=== PATIENT | female | born 1940 | race Hispanic/Latino ===

== ENCOUNTER 2017-10-31 21:09 | Inpatient (IN) | payer MEDICAID, OTHER ==
--- NOTE | 2017-10-31 21:23 | ED PDOC ---
Arrival/HPI - General Chief Complaint: Altered Mental Status Time Seen by Provider: 10/31/17 21:15 Historian: Family - History of Present Illness Narrative History of Present Illness (Text): 10/31/17 21:23 Tiffanie Sargent is a 77 year old female who presents to the Emergency department brought in by EMS accompanied by daughter for altered mental status tonight. As per daughter, patient began vomiting 1 hour prior to arrival with associated shaking and altered mental status. Daughter states patient was able to speak/ recognize her but was not making any sense. Daughter also notes patient hit her head on a cabinet 3 days prior and was complaining of abdominal pain since yesterday. Limited HPI and ROS secondary to patient's altered mental status. Time/Duration: Other (tonight) Symptom Course: Unchanged Activities at Onset: Light Context: Home Past Medical History - Provider Review Nursing Documentation Reviewed: Yes - Psychiatric Hx Substance Use: No Family/Social History - Physician Review Nursing Documentation Reviewed: Yes Family/Social History: Unknown Family HX Smoking Status: Never Smoked Hx Alcohol Use: No Hx Substance Use: No Allergies/Home Meds Allergies/Adverse Reactions: Allergies No Known Allergies Allergy (Verified 10/31/17 21:14) Home Medications: Home Meds Medication Instructions Recorded Confirmed No Known Home Med 10/31/17 10/31/17 Review of Systems - Review of Systems Systems not reviewed;Unavailable: Altered Mental Status Gastrointestinal: Abdominal Pain, Vomiting. absent: Diarrhea Neurological: Other (+altered mental status) Physical Exam Vital Signs Temp Pulse Resp BP Pulse Ox 11/01/17 03:29 99.3 F 81 18 90/41 L 96 11/01/17 02:09 107 H 18 85/51 L 96 11/01/17 01:37 112 H 18 99/57 L 96 11/01/17 00:26 99.3 F 11/01/17 00:19 106 H 17 100/51 L 96 10/31/17 23:58 107 H 18 104/49 L 95 10/31/17 22:48 108 H 18 113/62 92 L 10/31/17 22:25 132 H 120/54 L 10/31/17 22:00 126 H 10/31/17 21:58 124 H 18 120/54 L 95 10/31/17 21:49 104 F H 10/31/17 21:43 131 H 19 127/52 L 93 L 10/31/17 21:20 104.0 F H 144 H 18 126/65 90 L Temperature: Febrile Blood Pressure: Normal Pulse: Tachycardic Respiratory Rate: Normal Appearance: Positive for: Non-Toxic Pain Distress: None Mental Status: Positive for: other (Awake, alert, and oriented x 2 (person and place)) - Systems Exam Head: Present: Normocephalic, Other (Chronic skin lesions to left infraorbital facial area) Pupils: Present: PERRL Extroacular Muscles: Present: EOMI Conjunctiva: Present: Normal Ears: Present: Normal, NORMAL TM, Normal Canal. No: Erythema, TM Bulging, Fluid Mouth: Present: Moist Mucous Membranes Pharnyx: Present: Normal. No: ERYTHEMA, EXUDATE, TONSILS ENLARGED, Peritonsilar Swelling, Uvular Deviation, Muffled/Hoarse Voice, Strider, Soft Palate/Uvular Edema Nose (External): Present: Atraumatic Nose (Internal): Present: Normal Inspection Neck: Present: Normal Range of Motion. No: Meningeal Signs, MIDLINE TENDERNESS , Paraspinal Tenderness Respiratory/Chest: Present: Clear to Auscultation, Good Air Exchange. No: Respiratory Distress, Accessory Muscle Use Cardiovascular: Present: Normal S1, S2, Irregular Rhythm (Irregular, regular), Tachycardic. No: Murmurs Abdomen: Present: Tenderness (upper abdomen), Normal Bowel Sounds. No: Distention, Peritoneal Signs Back: Present: Normal Inspection. No: CVA Tenderness, Midline Tenderness, Paraspinal Tenderness Upper Extremity: Present: Normal Inspection, Normal ROM, NORMAL PULSES, Neurovascularly Intact, Capillary Refill < 2s. No: Cyanosis, Edema, Tenderness , Swelling, Erythema, Temperature Abnormalties, Deformity Lower Extremity: Present: Normal Inspection, NORMAL PULSES, Normal ROM, Neurovascularly Intact, Capillary Refill < 2 s. No: Edema, CALF TENDERNESS, Cyanosis, Tenderness, Swelling, Erythema, Deformity, Temperature Abnormalties Neurological: Present: GCS=15, CN II-XII Intact, Speech Normal, Motor Func Grossly Intact, Normal Sensory Function, Normal Cerebellar Funct Skin: Present: Warm, Dry, Normal Color. No: Rashes Psychiatric: Present: Alert (Awake, alert). No: Oriented x 3 (Oriented x2 ( person and place)) Medical Decision Making ED Course and Treatment: 10/31/17 21:23 Impression: 77 year old female brought in for altered mental status with vomiting 1 hour [employer]. Pt also hit her head 3 days prior. Plan: -- CT Head w/o contrast -- CT Abdomen and Pelvis -- EKG -- Chest X-ray -- Labs, cardiac enzymes, blood cultures -- Urinalysis, urine cultures -- Lactated Ringer's -- Tylenol -- Reassess and disposition Progress Notes: Reviewed EKG, a flutter at 141 bpm. Variable AV block. Non-specific ST/T wave changes. Cardizem ordered 10/31/17 22:16 Chest X-ray reviewed, shows no acute processes. 10/31/17 23:05 Repeat EKG following medication reviewed, a flutter at [address]pm[address] Non-specific ST/ T wave changes. 10/31/17 23:04 CT Head shows: Brain: Unremarkable. No hemorrhage. No significant white matter disease. No edema. Ventricles: Unremarkable. No ventriculomegaly. Bones/joints: Unremarkable. No acute fracture. Soft tissues: Unremarkable. Sinuses: Air-fluid level in the right maxillary sinus. Near complete opacification of the left maxillary sinus. Acute sinusitis cannot be excluded. Mastoid air cells: Small right mastoid effusion. Acute mastoiditis cannot be excluded IMPRESSION: No evidence of acute intracranial hemorrhage. No midline shift or hydrocephalus.If symptoms persist, correlation with MRI is advised. Air-fluid level in the right maxillary sinus. Near complete opacification of the left maxillary sinus. Acute sinusitis cannot be excluded. Small right mastoid effusion. Acute mastoiditis cannot be excluded. Addendum by radiologist: No sinus disease. Disregard above mentioned sinus disease. 10/31/17 23:50 CT Abdomen and Pelvis shows: Artifacts: Streak artifact degrades image quality. Motion artifact degrades image quality. Lower thorax: The heart is enlarged. There is a small hiatal hernia. There are atelectatic changes at the lung bases. ABDOMEN: Liver: There is fatty infiltration of the liver. Gallbladder and bile ducts: Gallbladder is mildly distended. There is minimal pericholecystic fluid/edema. Common duct is mildly dilated 12 mm in diameter. There is mild thickening of the wall of the common duct. Pancreas: Pancreas is atrophic. Spleen: unremarkable Adrenals: There is mild nodular thickening of the right adrenal.. There is a 1.6 mm left adrenal nodule. Kidneys and ureters: There is a left renal cyst. Kidneys and ureters are otherwise unremarkable. Stomach and bowel: Stomach is almost empty. There is a duodenal diverticulum. Rotation is normal. There is no small bowel obstruction. Ileocecal region is unremarkable. Appendix and terminal ileum are unremarkable. Streak and motion limit evaluation of the colon. There is diverticulosis. Appendix: See stomach and bowel PELVIS: Bladder: unremarkable Reproductive: Uterus is lobular in configuration with coarse calcifications. Adnexa are unremarkable. ABDOMEN and PELVIS: Intraperitoneal space: There is no free air or free fluid. Bones/joints: unremarkable bony structures are osteopenic. There are degenerative changes. Soft tissues: unremarkable Vasculature: There are vascular calcifications. Lymph nodes: There is no pathologic adenopathy. IMPRESSION: Minimal pericholecystic fluid/edema suggest cholecystitis; mildly dilated common bile duct; fatty liver, no acute solid visceral abnormality; fibroid uterus; diverticulosis without CT findings of diverticulitis. 11/01/17 00:[address] Paul, who is aware and agrees with plan. Accepts pt in to her service, pt will be admitted. Decided not to heparinize at this time, antibiotics given. Surgical and cardiac consults to follow. ICU consult requested, wet process assistant head miller paged. 11/01/17 00:[address] Donnelly, wet process assistant head miller, who is aware and agrees to evaluate pt for possible ICU admission. 11/01/17 00:[address] Donnelly, present in Emergency department to evaluate pt, states pt can go to Telemetry. 11/01/17 02:06 Notified by RN, pt with drop in blood pressure, fluids ordered. Discussed with wet process assistant head miller, will upgrade to ICU. Pt will be admitted to ICU for acute cholecystitis, paroxysmal atrial fibrillation/flutter, and fever under Dr. Paul 's service. - Critical Care Critical Care Minutes: 45 minutes - Lab Interpretations Lab Results: 10/31/17 21:22 10/31/17 21:22 Lab Results 11/01/17 00:29: Lipase 98 10/31/17 21:45: Urine Color Yellow, Urine Appearance Sl cloudy, Urine pH 7.5, Ur Specific [place] 1.020, Urine Protein 100 H, Urine Glucose (UA) Negative, Urine Ketones 40 H, Urine Blood Trace-intact H, Urine Nitrate Negative, Urine Bilirubin Large H, Urine Urobilinogen 1.0 H, Ur Leukocyte Esterase Negative, Urine RBC 0 - 2, Urine WBC Negative 10/31/17 21:22: Sodium 133, Chloride 96 L, Potassium 4.1, Carbon Dioxide 27, Anion Gap 15, BUN 12, Creatinine 0.8, Est GFR ( Amer) > 60, Est GFR (Non- Af Amer) > 60, Random Glucose 172 H, Calcium 9.4, Phosphorus 2.5, Magnesium 1.8 , Total Bilirubin 8.4 H, AST 266 H, ALT 346 H, Alkaline Phosphatase 409 H, Lactate Dehydrogenase 593, Total Creatine Kinase 59, Troponin I < 0.01, Total Protein 8.0, Albumin 4.0, Globulin 4.0, Albumin/Globulin Ratio 1.0 L 10/31/17 21:22: pO2 43, VBG pH 7.40, VBG pCO2 47.0, VBG HCO3 29.1 H, VBG Total CO2 30.5 H, VBG O2 Sat (Calc) 84.6 H, VBG Base Excess 3.5 H, VBG Potassium 4.1, Sodium 133.0, Chloride 95.0 L, Glucose 174 H, Lactate 1.8, FiO2 21.0, Venous Blood Potassium 4.1 10/31/17 21:22: PT 13.9 H, INR 1.21 H, APTT 26.3 10/31/17 21:22: WBC 3.7 L, RBC 4.74, Hgb 14.0, Hct 41.6, MCV 87.8, MCH 29.5, MCHC 33.7, RDW 14.1, Plt Count 189, MPV 10.0, Gran % 90.0 H, Lymph % (Auto) 9.2 L, [place] % (Auto) 0.8 L, Eos % (Auto) 0.0 L, Baso % (Auto) 0.0, Gran # 3.33, Lymph # 0.3 L, [place] # 0.0 L, Eos # 0.0, Baso # 0.00 I have reviewed the lab results: Yes - RAD Interpretation Radiology Orders: 10/31/17 21:23 CHEST PORTABLE [RAD] Stat 10/31/17 21:49 HEAD W/O CONTRAST [CT] Stat 10/31/17 22:03 ABD & PELVIS IV CONTRAST ONLY [CT] Stat 11/01/17 00:32 ABDOMEN COMPLETE [US] [employer] Architect: ED Physician, Radiologist - EKG Interpretation Interpreted by ED Physician: Yes Type: 12 lead EKG - Medication Orders Current Medication Orders: Acetaminophen (Tylenol 325mg Tab) 650 mg PO Q4 PRN PRN Reason: Fever >100.4 F diltiaZEM IVPB 100mg in NS (Cardizem 100mg In Ns) 100 mls @ 5 mls/hr IV .Q20H PRN; Protocol; 5 MG/HR PRN Reason: TITRATE PER MD ORDER Last Admin: 11/01/17 03:31 Dose: 5 mg/hr, 5 mls/hr eMAR Start Stop Document 11/01/17 03:31 PD (Rec: 11/01/17 03:31 PD [id number]) Intravenous Solution Start Date 11/01/17 Start Time 03:31 MAR Pulse Rate Document 11/01/17 03:31 PD (Rec: 11/01/17 03:31 PD [id number]) Pulse Rate Pulse Rate (60-90) 100 Titration Intervention Document 11/01/17 03:31 PD (Rec: 11/01/17 03:31 PD [id number]) Titration Intake Waste Amount 0 Container Volume 100 Titration Dosing Titration Dose 5 IV Rate 5 Intake/Decrease Started Sodium Chloride (Sodium Chloride 0.9%) 1,000 mls @ 125 mls/hr IV .Q8H CHARI Last Admin: 11/01/17 01:38 Dose: 125 mls/hr eMAR Start Stop Document 11/01/17 01:38 IT (Rec: 11/01/17 01:38 IT [id number]) Intravenous Solution Start Date 11/01/17 Start Time 01:38 End Date 11/01/17 Heparin Sodium/Sodium Chloride (Heparin 97095 Units/250ml 1/2 Normal Saline) 25 ,000 units in 250 mls @ 17.57 mls/hr IV .[id number] PRN; Protocol; 18 UNITS/KG/HR PRN Reason: ADJUST RATE PER PROTOCOL Last Admin: 11/01/17 02:43 Dose: 18 units/kg/hr, 17.57 mls/hr eMAR Start Stop Document 11/01/17 02:43 IT (Rec: 11/01/17 02:43 IT [id number]) Intravenous Solution Start Date 11/01/17 Start Time 02:43 Titration Intervention Document 11/01/17 02:43 IT (Rec: 11/01/17 02:43 IT [id number]) Titration Intake Waste Amount 0 Container Volume 250 Titration Dosing Titration Dose 18 IV Rate 17.57 Intake/Decrease Started Piperacillin Sod/Tazobactam Sod (Zosyn 3.375 In Ns 100ml) 100 mls @ 200 mls/hr IVPB Q6 CHARI PRN Reason: Protocol Stop: 11/01/17 12:29 Ondansetron HCl (Zofran Inj) 4 mg IVP Q6H PRN PRN Reason: Nausea/Vomiting Discontinued Medications Acetaminophen (Tylenol 650 Mg Supp) 650 mg RC STAT STA Stop: 10/31/17 21:32 Last Admin: 10/31/17 21:49 Dose: 650 mg MAR Pain/Vitals Document 10/31/17 21:49 IT (Rec: 10/31/17 21:49 IT [id number]) Pain Reassessment Is This A Pain ReAssessment? No Sleep Is patient sleeping during reassessment? No Presence of Pain Presence of Pain No Vitals Temperature (97.6 F-99.6 F) 104 F Temperature Source Rectal Diltiazem HCl (Cardizem) 20 mg IVP STAT STA Stop: 10/31/17 22:17 Last Admin: 10/31/17 22:25 Dose: 20 mg IVP Administration Document 10/31/17 22:25 YP (Rec: 10/31/17 22:27 [id number] Charges for Administration # of IVP Administrations 1 MAR Pulse and Blood Pressure Document 10/31/17 22:25 YP (Rec: 10/31/17 22:27 YP [facility] [id number]) Pulse Pulse Rate (60-90) 132 Blood Pressure Blood Pressure (100/60-150/90) 120/54 Heparin Sodium (Porcine) (Heparin) 4,000 units IV ONCE ONE PRN Reason: Protocol Stop: 11/01/17 02:16 Last Admin: 11/01/17 02:42 Dose: 4,000 units eMAR Start Stop Document 11/01/17 02:42 IT (Rec: 11/01/17 02:42 IT [id number]) Intravenous Solution Start Date 11/01/17 Start Time 02:42 Lactated Ringer's 2,930 ml/ IV (SUPPLIES) 2,930 mls @ 5,856.78 mls/hr IV ONCE ONE PRN Reason: 60 ML/KG/HR Stop: 10/31/17 21:21 Last Admin: 10/31/17 21:31 Dose: 5,856.78 mls/hr eMAR Start Stop Document 10/31/17 21:31 IT (Rec: 10/31/17 21:32 IT [id number]) Intravenous Solution Start Date 10/31/17 Start Time 21:31 Piperacillin Sod/Tazobactam Sod (Zosyn 3.375 In Ns 100ml) 100 mls @ 200 mls/hr IV STAT STA PRN Reason: Protocol Stop: 10/31/17 22:34 Last Admin: 11/01/17 00:36 Dose: 200 mls/hr eMAR Start Stop Document 11/01/17 00:36 IT (Rec: 11/01/17 00:36 IT [id number]) Intravenous Solution Start Date 11/01/17 Start Time 00:36 End Date 11/01/17 End time 01:05 Total Infusion Time 29 Vancomycin HCl (Vancomycin 1gm) 1 gm in 250 mls @ 133.333 mls/hr IVPB STAT STA PRN Reason: Protocol Stop: 11/01/17 00:02 Last Admin: 10/31/17 22:15 Dose: 133.333 mls/hr eMAR Start Stop Document 10/31/17 22:15 YP (Rec: 10/31/17 22:16 YP [id number]) Intravenous Solution Start Date 10/31/17 Start Time 22:15 End Date 11/01/17 End time 00:10 Total Infusion Time 115 Sodium Chloride (Sodium Chloride 0.9%) 1,000 mls @ 999 mls/hr IV .Q1H1M STA Stop: 11/01/17 00:57 Last Admin: 10/31/17 23:59 Dose: 999 mls/hr eMAR Start Stop Document 10/31/17 23:59 IT (Rec: 10/31/17 23:59 IT [id number]) Intravenous Solution Start Date 10/31/17 Start Time 23:59 End Date 11/01/17 End time 00:59 Total Infusion Time 60 Sodium Chloride (Sodium Chloride 0.9%) 1,000 mls @ 999 mls/hr IV .Q1H1M STA Stop: 11/01/17 03:22 Last Admin: 11/01/17 02:38 Dose: 999 mls/hr eMAR Start Stop Document 11/01/17 02:38 IT (Rec: 11/01/17 02:38 IT [id number]) Intravenous Solution Start Date 11/01/17 Start Time 02:38 End Date 11/01/17 End time 03:28 Total Infusion Time 50 - Scribe Statement The provider has reviewed the documentation as recorded by the Scribe Tram Hooks All medical record entries made by the Scribe were at my direction and personally dictated by me. I have reviewed the chart and agree that the record accurately reflects my personal performance of the history, physical exam, medical decision making, and the department course for this patient. I have also personally directed, reviewed, and agree with the discharge instructions and disposition. Disposition/Present on Arrival - Present on Arrival Any Indicators Present on Arrival: No History of DVT/PE: No History of Uncontrolled Diabetes: No Urinary Catheter: No History of Decub. Ulcer: No History Surgical Site Infection Following: None - Disposition Have Diagnosis and Disposition been Completed?: Yes Diagnosis: Altered mental status, Cholecystitis, Fever, Paroxysmal atrial flutter, Transient hypotension Disposition: HOSPITALIZED Disposition Time: :02 Patient Plan: Admission Patient Problems: Current Active Problems Problem Status Onset Altered mental status Acute Cholecystitis Acute Fever Acute Paroxysmal atrial flutter Acute Transient hypotension Acute Condition: STABLE
[2017-10-31 21:37] LABS: VENOUS BLOOD GAS BASE EXCESS 3.5 mmol/L (0.0-2.0); VENOUS BLOOD GAS PO2 43 mm/Hg (30-55)
[2017-10-31 21:49] LABS: GRAN # 3.33 (1.4-6.5); LYMPH # 0.3 (1.2-3.4); LYMPH % 9.2 % (22.0-35.0); MEAN CELL VOLUME 87.8 fl (80.0-105.0); MEAN CORPUSCULAR HEMOGLOBIN 29.5 pg (25.0-35.0); MEAN CORPUSCULAR HGB CONC 33.7 g/dl (31.0-37.0); MONO % 0.8 % (1.0-6.0); RBC 4.74 10^6/uL (3.5-6.1); RED CELL DISTRIBUTION WIDTH 14.1 % (11.5-14.5); WHITE BLOOD COUNT 3.7 10^3/ul (4.5-11.0)
[2017-10-31 21:55] LABS: INR 1.21 (0.93-1.08); PARTIAL THROMBOPLASTIN TIME 26.3 Seconds (25.1-36.5); PROTHROMBIN TIME 13.9 SECONDS (9.4-12.5)
[2017-10-31 21:56] LABS: PH,URINE 7.5 (4.7-8.0); URINE BILIRUBIN LARGE (NEGATIVE); URINE BLOOD TRACE-INTACT (NEGATIVE); URINE GLUCOSE (UA) NEGATIVE (NEGATIVE); URINE LEUKOCYTE ESTERASE NEGATIVE Leu/uL (NEGATIVE); URINE NITRATE NEGATIVE (NEGATIVE); URINE PROTEIN 100 mg/dL (<30 mg/dL)
[2017-10-31 21:57] LABS: URINE APPEARANCE SL CLOUDY (CLEAR); URINE COLOR YELLOW (YELLOW)
[2017-10-31 21:58] LABS: TROPONIN I < 0.01 ng/mL
[2017-10-31 22:00] LABS: URINE RBC 0 - 2 /hpf (0-2); URINE WBC NEGATIVE /hpf (0-6)
[2017-10-31 22:00] LABS: ALT/SGPT 346 U/L (7-56); AST/SGOT 266 U/L (14-36); BLOOD UREA NITROGEN 12 mg/dL (7-21); CALCIUM 9.4 mg/dL (8.4-10.5); GFR AFRICAN-AMERICAN > 60; GFR NON-AFRICAN AMERICAN > 60; MAGNESIUM 1.8 mg/dL (1.7-2.2)
[2017-10-31] MEDS ORDERED: Piperacillin/Tazobact 3.375 gm 100 ML IV STA (22:05)
[2017-10-31] MEDS ORDERED: Iohexol 350 MG/100 ML VIAL ONE (22:05)
[2017-10-31] MEDS ORDERED: Vancomycin 1gm in NS 250ml 1 GM/250 ML BAG IVPB STA (22:10)
--- NOTE | 2017-10-31 23:43 | CT ---
EXAM: CT Abdomen and Pelvis With Intravenous Contrast EXAM DATE/TIME: 10/31/2017 10:03 PM CLINICAL HISTORY: 77 years old, female; Pain; Abdominal pain; Acute TECHNIQUE: Axial computed tomography images of the abdomen and pelvis with intravenous contrast. All CT scans at this facility use one or more dose reduction techniques, viz.: automated exposure control; ma/kV adjustment per patient size (including targeted exams where dose is matched to indication; i.e. head); or iterative reconstruction technique. Coronal and sagittal reformatted images were created and reviewed. CONTRAST: 100 mL of OMNI administered intravenously. COMPARISON: There are no prior studies for comparison. FINDINGS: Artifacts: Streak artifact degrades image quality. Motion artifact degrades image quality. Lower thorax: The heart is enlarged. There is a small hiatal hernia. There are atelectatic changes at the lung bases. ABDOMEN: Liver: There is fatty infiltration of the liver. Gallbladder and bile ducts: Gallbladder is mildly distended. There is minimal pericholecystic fluid/edema. Common duct is mildly dilated 12 mm in diameter. There is mild thickening of the wall of the common duct. Pancreas: Pancreas is atrophic. Spleen: unremarkable Adrenals: There is mild nodular thickening of the right adrenal.. There is a 1.6 mm left adrenal nodule. Kidneys and ureters: There is a left renal cyst. Kidneys and ureters are otherwise unremarkable. Stomach and bowel: Stomach is almost empty. There is a duodenal diverticulum. Rotation is normal. There is no small bowel obstruction. Ileocecal region is unremarkable. Appendix and terminal ileum are unremarkable. Streak and motion limit evaluation of the colon. There is diverticulosis. Appendix: See stomach and bowel PELVIS: Bladder: unremarkable Reproductive: Uterus is lobular in configuration with coarse calcifications. Adnexa are unremarkable. ABDOMEN and PELVIS: Intraperitoneal space: There is no free air or free fluid. Bones/joints: unremarkable bony structures are osteopenic. There are degenerative changes. Soft tissues: unremarkable Vasculature: There are vascular calcifications. Lymph nodes: There is no pathologic adenopathy. IMPRESSION: Minimal pericholecystic fluid/edema suggest cholecystitis; mildly dilated common bile duct; fatty liver, no acute solid visceral abnormality; fibroid uterus; diverticulosis without CT findings of diverticulitis
[2017-10-31] MEDS ORDERED: Sodium Chloride 0.9% 1,000 ML IV STA (23:57)
--- NOTE | 2017-11-01 01:09 | CP.PCM.CON ---
Addendum entered and electronically signed by Nelson Saleh DO 11/01/17 02:55: Addendum to physical exam: Eyes: healing scabs along inferior aspect of left orbit Addendum to Plan After patient seen in ED, started to become increasingly hypotensive, now not responsive to fluids. On reassessment, will take patient to ICU. Plan as follows: Neuro: -awake and alert, AMS likely 2/2 sepsis vs dehydration, appears resolved now -maintain normothermia, PRN tylenol on order -Tmax in the ED 104 F, 99.3 F at last check -at risk for hospital/ICU-associated delirium, strict day/night cycle and frequent reorientations as needed Pulm: -satting well on room air, no indication for supplemental O2 at this time. -maintain SaO2 of at least 92% Cardio -EKG on arrival notable for AFlutter with variable AV block, improved on cardizem drip but stopped due to hypotension -was initially hemodynamically stable and responsive to IV fluids, not hypotensive to systolic 80's despite IV fluids -continue aggressive IV fluids, pressor support as needed, maintain MAP > 65 -trop x1 negative, 2nd increase to 0.09, trending 1 more q6h -heparin drip started -IVF NS 125 cc/hr, s/p LR bolus 1L in the ED -Cardio consulted, appreciate all recs -aflutter may be secondary to systemic stress from infection and dehydration, continue to monitor while on IV abx and IV fluids GI: -NPO -Zofran for PRN nausea, PPI for GI ppx -CT abd/pelvis concerning for Minimal pericholecystic fluid/edema suggest cholecystitis; mildly dilated common bile duct (12mm); fatty liver, no acute solid visceral abnormality; fibroid uterus; diverticulosis without CT findings of diverticulitis -Lipase obtained, wnl -US abd obtained, notable for Gallstones and sludge; prominent common duct -GI consulted, case discussed with GI Fellow signal constructor (appreciate all recs), MRCP ordered as per his instructions -Surgery consulted as per PMD, appreciate all recs Renal: -Cr 0.8, appears mildly dehydration -continue aggressive IVF -monitor and replete electrolytes as need ID: -broad-spectrum abx coverage for suspected ascending cholangitis -received Vanco and Zosyn IV x1 in ED, now on Merrem -blood and urine cx pending, procal pending Heme: -Hgb wnl at 14 -heparin drip in place due to worsening trops, covers for DVT ppx -Asa 81mg daily Dispo: ICU, pending GI eval and possible MRCP friday, pending Cardio and Surgery eval, receiving broad spectrum IV abx and IVF for possible cholangitis FEN: NS 125 cc/hr Access: Peripheral IV Consults: GI, Cardio, Surgery Ppx: protonix for GI, Heparin drip covers for DVT ppx Patient reviewed, discussed, and agreed upon with attending, Dr. Donnelly. Original Note: <Nelson Saleh - Last Filed: 11/01/17 00:55> History of Present Illness - History of Present Illness History of Present Illness: ICU Consult Note for Dr. Cony Saleh, PGY-2 IM Consulted for: AMS, elevated LFTs HPI: This is a 77 yo [place] F with no reported PMH who presents with daughter for acute altered mental status. Patient is primarily Tongan-speaking, history obtained through [facility]. As per pt and daughter, patient reported feeling malaise and nausea for the last 2-3 days, daughter reports 2 episodes of emesis and 1-2 days of diarrhea. Denies hematemesis and hematochezia. Daughter also reports pt has urge incontinence with little output, and reports mild yellowing of the sclera, but not the skin. Patient reported diffuse midline abdominal pain yesterday, but after taking some herbals (mint as per daughter), she felt better. AMS this evening was abrupt on onset, patient was conversant but speaking nonsensically, oriented to self and recognized daughter but otherwise disoriented. At time of exam, patient is now mentating back at her baseline as per daughter, she is conversant, oriented to self/location/year, and is able to follow all commands appropriately. Denies any chest pain or shortness of breath , but does admit to mildly productive cough x3-4 days. Daughter reports fevers at home today and tremulous episode after AMS occured, but denies loss of bowel/ bladder control, syncope, or falls. Of note, patient struck left orbital area against cabinet door while on ladder 3 days prior, with no loss of consciousness or falls at that time. Also of note, daughter reports that patient never follows with doctors, having last seen one approximately 30 years ago, but thinks that her mother might have been diagnosed with HTN when still in [place]. She is currently not on medication, preferring to manage any acute issues/symptoms with herbals she buys from produce stores. All other ROS in 12- system review negative. While in ED, found to be in atrial flutter, was started on cardizem drip, but was stopped due to hypotension. At time of exam, HR high 90's-100's, regular rhythm during ausculation. PMH: possible HTN dx while in [place], no other medical hx known due to lack of medical follow up PSH: denies Family Hx: denies Social Hx: denies tobacco/alcohol/illicits PMD: None Review of Systems - Review of Systems All systems: reviewed and no additional remarkable complaints except (as per HPI ) Past Patient History - Past Social History Smoking Status: Never Smoked - PSYCHIATRIC Hx Substance Use: No Meds Allergies/Adverse Reactions: Allergies Allergy/AdvReac Type Severity Reaction Status Date / Time No Known Allergies Allergy Verified 10/31/17 21:14 - Medications Medications: Current Medications diltiaZEM IVPB 100mg in NS (Cardizem 100mg In Ns) 100 mls @ 5 mls/hr IV .Q20H PRN; Protocol; 5 MG/HR PRN Reason: TITRATE PER MD ORDER Sodium Chloride (Sodium Chloride 0.9%) 1,000 mls @ 999 mls/hr IV .Q1H1M STA Stop: 11/01/17 00:57 Last Admin: 10/31/17 23:59 Dose: 999 mls/hr Physical Exam - Constitutional Appears: Well, Non-toxic, No Acute Distress - Head Exam Head Exam: ATRAUMATIC, NORMAL INSPECTION, NORMOCEPHALIC - Eye Exam Eye Exam: EOMI, Scleral icterus. absent: Conjunctival injection, Normal appearance Pupil Exam: absent: Irregular, Unequal - ENT Exam ENT Exam: Mucous Membranes Moist - Neck Exam Neck exam: Positive for: Full Rom - Respiratory Exam Respiratory Exam: Clear to Auscultation Bilateral, NORMAL BREATHING PATTERN. absent: Accessory Muscle Use, Chest Wall Tenderness, Decreased Breath Sounds, Rales, Rhonchi, Wheezes - Cardiovascular Exam Cardiovascular Exam: Tachycardia (high 90's-100's on bedside monitor), REGULAR RHYTHM, +S1, +S2. absent: Bradycardia, Irregular Rhythm, JVD, RRR, +S4 - GI/Abdominal Exam GI & Abdominal Exam: Normal Bowel Sounds, Soft, Tenderness (mild diffuse tenderness most prominent at epigastric region). absent: Diminished Bowel Sounds, Hyperactive Bowel Sounds, Hypoactive Bowel Sounds - Rectal Exam Rectal Exam: Deferred - Extremities Exam Extremities exam: Positive for: normal inspection. Negative for: pedal edema - Neurological Exam Additional comments: awake and alert, oriented to self/location/year, following all commands appropriately, moving extremities spontaneously, able to sit up in bed without acute issue or difficulty - Psychiatric Exam Psychiatric exam: Normal Affect, Normal Mood - Skin Skin Exam: Dry, Intact, Normal Color, Warm Results - Vital Signs Recent Vital Signs: Last Vital Signs Temp 99.3 F 11/01/17 00:26 Pulse 106 H 11/01/17 00:19 Resp 17 11/01/17 00:19 BP 100/51 L 11/01/17 00:19 Pulse Ox 96 11/01/17 00:19 - Labs Result Diagrams: 10/31/17 21:22 10/31/17 21:22 Labs: Laboratory Results - last 24 hr 10/31/17 10/31/17 10/31/17 21:22 21:22 21:22 WBC 3.7 L RBC 4.74 Hgb 14.0 Hct 41.6 MCV 87.8 MCH 29.5 MCHC 33.7 RDW 14.1 Plt Count 189 MPV 10.0 Gran % 90.0 H Lymph % (Auto) 9.2 L Stonewall % (Auto) 0.8 L Eos % (Auto) 0.0 L Baso % (Auto) 0.0 Gran # 3.33 Lymph # 0.3 L Stonewall # 0.0 L Eos # 0.0 Baso # 0.00 PT 13.9 H INR 1.21 H APTT 26.3 pO2 43 VBG pH 7.40 VBG pCO2 47.0 VBG HCO3 29.1 H VBG Total CO2 30.5 H VBG O2 Sat (Calc) 84.6 H VBG Base Excess 3.5 H VBG Potassium 4.1 Sodium 133.0 Chloride 95.0 L Glucose 174 H Lactate 1.8 FiO2 21.0 Potassium Carbon Dioxide Anion Gap BUN Creatinine Est GFR ( Amer) Est GFR (Non-Af Amer) Random Glucose Calcium Phosphorus Magnesium Total Bilirubin AST ALT Alkaline Phosphatase Lactate Dehydrogenase Total Creatine Kinase Troponin I Total Protein Albumin Globulin Albumin/Globulin Ratio Venous Blood Potassium 4.1 Urine Color Urine Appearance Urine pH Ur Specific Proctor Urine Protein Urine Glucose (UA) Urine Ketones Urine Blood Urine Nitrate Urine Bilirubin Urine Urobilinogen Ur Leukocyte Esterase Urine RBC Urine WBC 10/31/17 10/31/17 21:22 21:45 WBC RBC Hgb Hct MCV MCH MCHC RDW Plt Count MPV Gran % Lymph % (Auto) Stonewall % (Auto) Eos % (Auto) Baso % (Auto) Gran # Lymph # Stonewall # Eos # Baso # PT INR APTT pO2 VBG pH VBG pCO2 VBG HCO3 VBG Total CO2 VBG O2 Sat (Calc) VBG Base Excess VBG Potassium Sodium 133 Chloride 96 L Glucose Lactate FiO2 Potassium 4.1 Carbon Dioxide 27 Anion Gap 15 BUN 12 Creatinine 0.8 Est GFR ( Amer) > 60 Est GFR (Non-Af Amer) > 60 Random Glucose 172 H Calcium 9.4 Phosphorus 2.5 Magnesium 1.8 Total Bilirubin 8.4 H AST 266 H ALT 346 H Alkaline Phosphatase 409 H Lactate Dehydrogenase 593 Total Creatine Kinase 59 Troponin I < 0.01 Total Protein 8.0 Albumin 4.0 Globulin 4.0 Albumin/Globulin Ratio 1.0 L Venous Blood Potassium Urine Color Yellow Urine Appearance Sl cloudy Urine pH 7.5 Ur Specific Proctor 1.020 Urine Protein 100 H Urine Glucose (UA) Negative Urine Ketones 40 H Urine Blood Trace-intact H Urine Nitrate Negative Urine Bilirubin Large H Urine Urobilinogen 1.0 H Ur Leukocyte Esterase Negative Urine RBC 0 - 2 Urine WBC Negative Assessment & Plan - Assessment and Plan (Free Text) Assessment: This is a 77 yo Tong[place] F with no reported PMH who presents with daughter for acute altered mental status, with CT abd/pelvis findings concerning for possible cholangitis. Plan: At this time, as patient's altered mental status has resolved and her fever has improved from 104F to 99.3, this patient does not require ICU admission. Would recommend Ultrasound of abdomen to further assess gallbladder/common bile duct/ liver, checking a lipase level, and consulting GI for their recommendations. Continue IV fluid repletion and IV antibiotics. Would check a hepatitis panel given patient's lack of medical followup for prolonged period. Agree with cardio and surgical consults (ordered as per admitting physician). Patient can be admitted to telemetry floor. Thank you for this interesting consult. Patient seen, reviewed, and discussed with attending, Dr. Donnelly. <Cony SIMMONS,Marshal - Last Filed: 11/01/17 09:19> Meds - Medications Medications: Current Medications Acetaminophen (Tylenol 325mg Tab) 650 mg PO Q4 PRN PRN Reason: Fever >100.4 F Aspirin (Ecotrin) 81 mg PO DAILY CHARI diltiaZEM IVPB 100mg in NS (Cardizem 100mg In Ns) 100 mls @ 5 mls/hr IV .Q20H PRN; Protocol; 5 MG/HR PRN Reason: TITRATE PER MD ORDER Last Titration: 11/01/17 05:45 Dose: 0 mg/hr, 0 mls/hr Sodium Chloride (Sodium Chloride 0.9%) 1,000 mls @ 125 mls/hr IV .Q8H CHARI Last Admin: 11/01/17 01:38 Dose: 125 mls/hr Heparin Sodium/Sodium Chloride (Heparin 19383 Units/250ml 1/2 Normal Saline) 25 ,000 units in 250 mls @ 17.57 mls/hr IV .[id number] PRN; Protocol; 18 UNITS/KG/HR PRN Reason: ADJUST RATE PER PROTOCOL Last Admin: 11/01/17 02:43 Dose: 18 units/kg/hr, 17.57 mls/hr Piperacillin Sod/Tazobactam Sod (Zosyn 3.375 In Ns 100ml) 100 mls @ 200 mls/hr IVPB Q6 CHARI PRN Reason: Protocol Stop: 11/01/17 12:29 Last Admin: 11/01/17 05:29 Dose: 200 mls/hr Ondansetron HCl (Zofran Inj) 4 mg IVP Q6H PRN PRN Reason: Nausea/Vomiting Results - Vital Signs Recent Vital Signs: Last Vital Signs Temp 98.4 F 11/01/17 03:55 Pulse 79 11/01/17 08:20 Resp 21 11/01/17 08:20 BP 131/62 11/01/17 08:00 Pulse Ox 97 11/01/17 08:20 - Labs Result Diagrams: 10/31/17 21:22 11/01/17 05:00 Labs: Laboratory Results - last 24 hr 11/01/17 11/01/17 11/01/17 02:10 05:00 05:00 APTT pO2 144 H VBG pH 7.39 VBG pCO2 39.0 L VBG HCO3 23.6 VBG Total CO2 24.8 VBG O2 Sat (Calc) 100.0 H VBG Base Excess -1.2 L VBG Potassium 3.6 Sodium 137 137.0 Chloride 108 H 107.0 Glucose 114 H Lactate 0.9 FiO2 21.0 Potassium 3.7 Carbon Dioxide 23 Anion Gap 11 BUN 8 Creatinine 0.7 Est GFR ( Amer) > 60 Est GFR (Non-Af Amer) > 60 Random Glucose 113 H Calcium 8.1 L Phosphorus 3.2 Magnesium 1.8 Total Bilirubin 5.8 H AST 155 H D ALT 232 H Alkaline Phosphatase 271 H D Lactate Dehydrogenase 434 410 Total Creatine Kinase 233 H 276 H CK-MB (CK-2) 1.4 1.9 CK-MB (CK-2) % Cancelled Cancelled Troponin I 0.09 D 0.13 H* D Total Protein 6.1 Albumin 3.0 Globulin 3.2 Albumin/Globulin Ratio 0.9 L Triglycerides 58 Cholesterol 138 LDL Cholesterol Direct 63 HDL Cholesterol 39 TSH 3rd Generation Venous Blood Potassium 3.6 11/01/17 11/01/17 05:00 08:45 APTT 88.6 H pO2 VBG pH VBG pCO2 VBG HCO3 VBG Total CO2 VBG O2 Sat (Calc) VBG Base Excess VBG Potassium Sodium Chloride Glucose Lactate FiO2 Potassium Carbon Dioxide Anion Gap BUN Creatinine Est GFR ( Amer) Est GFR (Non-Af Amer) Random Glucose Calcium Phosphorus Magnesium Total Bilirubin AST ALT Alkaline Phosphatase Lactate Dehydrogenase Total Creatine Kinase CK-MB (CK-2) CK-MB (CK-2) % Troponin I Total Protein Albumin Globulin Albumin/Globulin Ratio Triglycerides Cholesterol LDL Cholesterol Direct HDL Cholesterol TSH 3rd Generation 0.75 Venous Blood Potassium Attending/Attestation - Attestation I have personally seen and examined this patient.: Yes I have fully participated in the care of the patient.: Yes I have reviewed all pertinent clinical information: Yes Notes (Text): -I agree with the above ICU consult note completed by the resident physician with the following additions and/or changes: -The patient is a 77 year old Tongan speaking woman with no known medical history who presents with signs and symptoms concerning for acute cholangitis ( i.e-jaundice, abdominal pain, high fevers, transaminitis and a dilated CBD with gallstones on abdominal U/S). In the ED, she also developed atrial flutter with RVR. Of note, she has not seen a physician in over 30 years. The initial plan was for the patient to be admitted to the telemetry perez since her low-normal blood pressures improved, at first, with IV fluid boluses. However, soon afterwards, she developed recurring hypotension. As a result, she will instead be admitted to the ICU for closer hemodynamic monitoring. Also, given her CHADS2-Vasc score of 3, therapeutic Heparin drip will be started alongside daily ASA. She will be kept on NPO and on aggressive IVFs. Serial trops and EKGs have been ordered and a cardiology consult has been placed. Also, a procalcitonin has been ordered and empiric IV Zosyn started. Additionally, ID has been consulted. Lastly, an MRCP has been ordered and GI has been consulted.
--- NOTE | 2017-11-01 01:17 | US ---
EXAM: US Abdomen Complete EXAM DATE/TIME: 11/01/2017 12:32 AM CLINICAL HISTORY: 77 years old, female; Pain; Abdominal pain; Generalized; Additional info: Eval for choledocholithiasis and/or cholecystitis TECHNIQUE: Real-time ultrasound of the abdomen (complete) with image documentation. COMPARISON: CT - ABD PELVIS IV CONTRAST ONLY 2017-10-31 22:39 FINDINGS: Liver: Liver is mildly heterogeneous. Gallbladder: Gallbladder is partially distended. There are multiple shadowing stones. There is sludge. There is mild wall prominence, 4 mm in diameter. Common bile duct: Common bile duct measures approximately 8 mm in diameter. Pancreas: Pancreas is partially obscured by bowel gas. Kidneys: Kidneys are unremarkable. Spleen: Spleen is unremarkable. Aorta and inferior vena cava: Aorta and inferior vena cava are poorly visualized. IMPRESSION: Gallstones and sludge; prominent common duct Patient was not tender over the gallbladder
[2017-11-01] MEDS: Sodium Chloride 0.9% 1,000 ML IV SCH ×2 (01:38→14:05)
[2017-11-01] MEDS ORDERED: Sodium Chloride 0.9% 1,000 ML IV STA (02:22)
[2017-11-01] MEDS: Heparin25000 units/250ml 1/2NS 25,000 UNITS/250 ML BAG IV PRN (02:43)
[2017-11-01 02:55] LABS: TROPONIN I 0.09 ng/mL
[2017-11-01 03:09] LABS: CK-MB 1.4 ng/mL (0.0-3.6)
[2017-11-01] MEDS: diltiaZEM IVPB 100mg in NS 100 ML IV PRN ×2 (03:31→14:03)
[2017-11-01 05:30] LABS: VENOUS BLOOD GAS BASE EXCESS -1.2 mmol/L (0.0-2.0); VENOUS BLOOD GAS PO2 144 mm/Hg (30-55); VENOUS BLOOD PH 7.39 (7.32-7.43)
[2017-11-01 05:50] LABS: ALB/GLOB RATIO 0.9 (1.1-1.8); ALT/SGPT 232 U/L (7-56); AST/SGOT 155 U/L (14-36); BLOOD UREA NITROGEN 8 mg/dL (7-21); CALCIUM 8.1 mg/dL (8.4-10.5); GFR AFRICAN-AMERICAN > 60; GFR NON-AFRICAN AMERICAN > 60; HDL CHOLESTEROL 39 mg/dL (29-60); MAGNESIUM 1.8 mg/dL (1.7-2.2)
[2017-11-01 05:56] LABS: LDL CHOLESTEROL 63 mg/dL (0-129)
[2017-11-01] MEDS ORDERED: Piperacillin/Tazobact 3.375 gm 100 ML IVPB SCH (06:00)
[2017-11-01] MEDS ORDERED: Meropenem 500 MG in Sodium Chloride 0.9% 100 ML IVPB SCH (06:00)
[2017-11-01 06:01] LABS: CK-MB 1.9 ng/mL (0.0-3.6); TROPONIN I 0.13 ng/mL
--- NOTE | 2017-11-01 08:18 | CT ---
PROCEDURE: CT HEAD WITHOUT CONTRAST. HISTORY: ams COMPARISON: None available. TECHNIQUE: Axial computed tomography images were obtained through the head/brain without intravenous contrast. Radiation dose: Total exam DLP = 1324 mGy-cm. This CT exam was performed using one or more of the following dose reduction techniques: Automated exposure control, adjustment of the mA and/or kV according to patient size, and/or use of iterative reconstruction technique. FINDINGS: HEMORRHAGE: No intracranial hemorrhage. BRAIN: No mass effect or edema. No atrophy or chronic microvascular ischemic changes. VENTRICLES: Unremarkable. No hydrocephalus. CALVARIUM: Unremarkable. PARANASAL SINUSES: Unremarkable as visualized. No significant inflammatory changes. MASTOID AIR CELLS: Unremarkable as visualized. No inflammatory changes. OTHER FINDINGS: The report concurs with the preliminary [facility] report IMPRESSION: No acute findings
[2017-11-01] MEDS ORDERED: Gadodiamide 287 MG/ML VIAL (15ML) IV ONE (08:28)
--- NOTE | 2017-11-01 08:33 | RAD ---
HISTORY: Sepsis Patient COMPARISON: No prior. FINDINGS: LUNGS: No active pulmonary disease. PLEURA: No significant pleural effusion identified, no pneumothorax apparent. CARDIOVASCULAR: Normal. OSSEOUS STRUCTURES: No significant abnormalities. VISUALIZED UPPER ABDOMEN: Normal. OTHER FINDINGS: None. IMPRESSION: No active disease.
--- NOTE | 2017-11-01 10:09 | CP.PCM.HP ---
<Jelly Kerr - Last Filed: 11/01/17 12:31> History of Present Illness - History of Present Illness History of Present Illness: Please note, history obtained using microbiology teacher as patient is Citizen Of [place] speaking 77yo Citizen Of [place] female with no PMHx presented with daughter to [facility] on 10/31 for AMS. This AM upon encounter, patient was AO x 3. Patient reported 2 days ago she started to experience diffuse abdominal pain which was constant and 7/10 in intensity. Patient also stated that she had one episode of nonbloody nonbilious emesis 2 days ago, and then on the day of admission at home and one episode in the ED. She also reported 4-5 episodes of diarrhea 2 days ago with no reported blood or melena; stated her stool was soft and not watery. As she had a decreased appetite and poor PO intake secondary to the abdominal pain, patient did not have any more BMs since then. Daughter also reported patient has urge incontinence with little UO and mild yellowing of the sclera but not skin. Patient's AMS was abrupt in onset- she was speaking nonsenically and was only oriented to herself. Patient's daughter also noticed the patient's arms were tremulous but this resolved in the ED. She denied any chest pain, palpitations, SOB, abd pain, nausea, vomiting, pain/swelling in her legs bilaterally. Patient did hit her face against a cabinet door 3 days prior to admission but there was no LOC or fall associated. Patient did also admit to a mildly productive cough for the past 3-4 days. ROS: 12 point review of systems negative except as indicated in HPI PMHx: possible HTN dx while in [place], no other medical hx known due to lack of medical follow up PSurgHx: denies Family Hx: denies Social Hx: denies EtOH/tobacco/illicit drug use Meds: Please see medication reconciliation ALL: NKDA PMD: none Pharmacy: none Present on Admission - Present on Admission Any Indicators Present on Admission: No Review of Systems - Review of Systems All systems: reviewed and no additional remarkable complaints except - Constitutional Constitutional: As Per HPI, Chills, Fever - EENT Eyes: As Per HPI. absent: Blurred Vision Ears: As Per HPI. absent: Dizziness Nose/Mouth/Throat: As Per HPI. absent: Sore Throat - Cardiovascular Cardiovascular: As Per HPI. absent: Chest Pain, Dyspnea, Edema - Respiratory Respiratory: As Per HPI, Cough. absent: Dyspnea, Chest Congestion - Gastrointestinal Gastrointestinal: As Per HPI, Abdominal Pain, Diarrhea, Nausea, Vomiting. absent: Constipation, Hematemesis, Hematochezia, Melena - Genitourinary Genitourinary: As Per HPI. absent: Dysuria, Hematuria, Pyuria - Musculoskeletal Musculoskeletal: As Per HPI. absent: Numbness, Stiffness, Tingling - Integumentary Integumentary: As Per HPI. absent: Dry Skin, Rash - Neurological Neurological: As Per HPI, Confusion. absent: Disequilibrium, Dizziness, Numbness, Headaches, Syncope, Tingling - Psychiatric Psychiatric: As Per HPI. absent: Anxiety, Depression - Endocrine Endocrine: As Per HPI. absent: Polydipsia, Polyphagia, Polyuria - Hematologic/Lymphatic Hematologic: As Per HPI. absent: Easy Bleeding, Easy Bruising, Lymphadenopathy Past Patient History - Past Social History Smoking Status: Never Smoked - MUSCULOSKELETAL/RHEUMATOLOGICAL Hx Falls: No - PSYCHIATRIC Hx Substance Use: No Meds Allergies/Adverse Reactions: Allergies Allergy/AdvReac Type Severity Reaction Status Date / Time No Known Allergies Allergy Verified 10/31/17 21:14 Physical Exam - Constitutional Appears: Non-toxic, No Acute Distress - Head Exam Head Exam: ATRAUMATIC, NORMAL INSPECTION, NORMOCEPHALIC - Eye Exam Eye Exam: EOMI, Normal appearance, PERRL, Scleral icterus. absent: Conjunctival injection Additional comments: healing scabs along inferior aspect of left orbit - ENT Exam ENT Exam: Mucous Membranes Moist - Neck Exam Neck exam: Positive for: Full Rom, Normal Inspection. Negative for: Lymphadenopathy - Respiratory Exam Respiratory Exam: Clear to Auscultation Bilateral, NORMAL BREATHING PATTERN. absent: Accessory Muscle Use, Rales, Rhonchi, Wheezes, Respiratory Distress - Cardiovascular Exam Cardiovascular Exam: Irregular Rhythm, +S1, +S2. absent: Bradycardia, Tachycardia - GI/Abdominal Exam GI & Abdominal Exam: Normal Bowel Sounds, Soft. absent: Distended, Firm, Guarding, Rigid, Tenderness - Rectal Exam Rectal Exam: Deferred - Extremities Exam Extremities exam: Positive for: normal capillary refill, normal inspection, pedal pulses present. Negative for: pedal edema - Neurological Exam Neurological exam: Alert, Oriented x3 - Psychiatric Exam Psychiatric exam: Normal Affect, Normal Mood - Skin Skin Exam: Dry, Intact, Normal Color, Warm Results - Vital Signs Recent Vital Signs: Last Vital Signs Temp 98.4 F 11/01/17 03:55 Pulse 79 11/01/17 08:20 Resp 21 11/01/17 08:20 BP 131/62 11/01/17 08:00 Pulse Ox 97 11/01/17 08:20 - Labs Result Diagrams: 10/31/17 21:22 11/01/17 05:00 Labs: Laboratory Results - last 24 hr 11/01/17 11/01/17 11/01/17 02:10 05:00 05:00 APTT pO2 144 H VBG pH 7.39 VBG pCO2 39.0 L VBG HCO3 23.6 VBG Total CO2 24.8 VBG O2 Sat (Calc) 100.0 H VBG Base Excess -1.2 L VBG Potassium 3.6 Sodium 137 137.0 Chloride 108 H 107.0 Glucose 114 H Lactate 0.9 FiO2 21.0 Potassium 3.7 Carbon Dioxide 23 Anion Gap 11 BUN 8 Creatinine 0.7 Est GFR ( Amer) > 60 Est GFR (Non-Af Amer) > 60 Random Glucose 113 H Calcium 8.1 L Phosphorus 3.2 Magnesium 1.8 Total Bilirubin 5.8 H AST 155 H D ALT 232 H Alkaline Phosphatase 271 H D Lactate Dehydrogenase 434 410 Total Creatine Kinase 233 H 276 H CK-MB (CK-2) 1.4 1.9 CK-MB (CK-2) % Cancelled Cancelled Troponin I 0.09 D 0.13 H* D Total Protein 6.1 Albumin 3.0 Globulin 3.2 Albumin/Globulin Ratio 0.9 L Triglycerides 58 Cholesterol 138 LDL Cholesterol Direct 63 HDL Cholesterol 39 TSH 3rd Generation Venous Blood Potassium 3.6 11/01/17 11/01/17 05:00 08:45 APTT 88.6 H pO2 VBG pH VBG pCO2 VBG HCO3 VBG Total CO2 VBG O2 Sat (Calc) VBG Base Excess VBG Potassium Sodium Chloride Glucose Lactate FiO2 Potassium Carbon Dioxide Anion Gap BUN Creatinine Est GFR ( Amer) Est GFR (Non-Af Amer) Random Glucose Calcium Phosphorus Magnesium Total Bilirubin AST ALT Alkaline Phosphatase Lactate Dehydrogenase Total Creatine Kinase CK-MB (CK-2) CK-MB (CK-2) % Troponin I Total Protein Albumin Globulin Albumin/Globulin Ratio Triglycerides Cholesterol LDL Cholesterol Direct HDL Cholesterol TSH 3rd Generation 0.75 Venous Blood Potassium Assessment & Plan - Assessment and Plan (Free Text) Assessment: 77yo Citizen Of [place] female with no PMHx presented with daughter to [facility] on 10/31 for AMS Plan: Altered Mental Status -resolved -likely secondary to high temp -CT head: negative Sepsis -secondary to acute cholangitis vs cholecystitis -MRCP: 12mm stone in distal CBD and multiple gallstones -Abd u/s: gallstones and sludge; prominent common duct; negative Fernandez's sign -CT abd/pelvis: minimal pericholecystic fluid/edema suggesting cholecystitis; mildly dilated CBD; fatty liver, no acute solid visceral abnl; fibroid uterus; diverticulosis without CT evidence of diverticulitis -elevated LFTs, TBili, DBili, Alk Phos noted -f/u blood and urine cultures -f/u procalcitonin -Tylenol for temp -Merrem 1gm ivpb q8 Day 2 -NS @ 125cc/hr -Zofran for nausea -patient for ERCP with Dr. Garcia this afternoon -f/u acute hep panel -f/u HgbA1c -f/u HIV panel -GI: Dr Petersen consulted -GI: Dr Garcia consulted -ID: Dr Holden consulted Aflutter -currently rate controlled -cardizem gtt was held as patient's BP was low -ASA 81mg po qd -Heparin gtt [will be held 1 hour prior to ERCP and continued 4 hours post procedure] -f/u Echo -Cardio: Dr. Alvarez consulted GI ppx: Protonix 40mg ivp qd DVT ppx: Heparin gtt and SCDs Diet: NPO Discussed with Dr. Luz Kerr PGY2 <Nia Escobar - Last Filed: 11/02/17 13:46> Results - Vital Signs Recent Vital Signs: Last Vital Signs Temp 98.4 F 11/02/17 11:41 Pulse 107 H 11/02/17 12:20 Resp 20 11/02/17 12:20 BP 128/72 11/02/17 12:00 Pulse Ox 98 11/02/17 12:20 - Labs Result Diagrams: 11/02/17 04:30 11/02/17 04:30 Labs: Laboratory Results - last 24 hr 11/01/17 11/01/17 11/02/17 03:10 19:30 02:25 WBC RBC Hgb Hct MCV MCH MCHC RDW Plt Count MPV Gran % Lymph % (Auto) [place] % (Auto) Eos % (Auto) Baso % (Auto) Gran # Lymph # [place] # Eos # Baso # APTT 21.2 L 93.4 H Sodium Potassium Chloride Carbon Dioxide Anion Gap BUN Creatinine Est GFR ( Amer) Est GFR (Non-Af Amer) Random Glucose Calcium Total Bilirubin AST ALT Alkaline Phosphatase Troponin I Total Protein Albumin Globulin Albumin/Globulin Ratio Procalcitonin 0.90 H 11/02/17 11/02/17 11/02/17 04:30 04:30 08:45 WBC 6.5 D RBC 4.10 Hgb 11.8 L D Hct 36.8 MCV 89.8 MCH 28.8 MCHC 32.1 RDW 14.8 H Plt Count 171 MPV 11.0 Gran % 72.9 H Lymph % (Auto) 21.1 L [place] % (Auto) 5.4 Eos % (Auto) 0.3 L Baso % (Auto) 0.3 Gran # 4.70 Lymph # 1.4 [place] # 0.4 Eos # 0.0 Baso # 0.02 APTT 84.1 H Sodium 140 Potassium 3.9 Chloride 109 H Carbon Dioxide 21 Anion Gap 13 BUN 12 Creatinine 0.6 L Est GFR ( Amer) > 60 Est GFR (Non-Af Amer) > 60 Random Glucose 64 L Calcium 8.5 Total Bilirubin 1.8 H AST 135 H ALT 196 H Alkaline Phosphatase 259 H Troponin I 0.08 D Total Protein 6.8 Albumin 3.2 Globulin 3.6 Albumin/Globulin Ratio 0.9 L Procalcitonin Attending/Attestation - Attestation I have personally seen and examined this patient.: Yes I have fully participated in the care of the patient.: Yes I have reviewed all pertinent clinical information: Yes Notes (Text): 11/02/17 13:44 Attending note; Patient seen and examined with resident in ICU. Patient is a 77-year-old Citizen Of [place] female with no previous medical follow-up is admitted with sudden onset of abdominal pain with fever. Found to have multiple gallstones with choledocholithiasis. The patient also had acute cholangitis. Currently on IV meropenem. Case discussed with Dr. Garcia in detail. Plan for urgent ERCP and stent placement. A. fib with rapid ventricular response; currently on heparin drip. Elevated troponin; secondary to sepsis/demand ischemia. Case discussed with Dr. Ernst in detail. Continue heparin drip. Continue Cardizem drip. Patient is moderate to high risk for procedures. The diagnosis, follow-up plan discussed with patient's daughter in detail by the bedside.
--- NOTE | 2017-11-01 10:32 | MRI ---
PROCEDURE: Magnetic Resonance Cholangiopancreatography and MRI of the abdomen with and without contrast HISTORY: COMPARISON: None available. TECHNIQUE: Multiplanar, multisequence MR images of the abdomen were obtained, including heavily T2 weighted MRCP images of the biliary system. Rotating maximum intensity projection images of the biliary system were generated. 15 cc of Omniscan FINDINGS: MRCP: There is a 12 mm stone in the distal common duct. The common duct is mildly dilated measuring 12 mm in diameter. LIVER: Unremarkable. No enhancing lesions GALLBLADDER: Multiple gallstones SPLEEN: Unremarkable. PANCREAS: Unremarkable. ADRENALS: Unremarkable. KIDNEYS: Unremarkable. AORTA: No aneurysm. ASCITES: None. OTHER FINDINGS: None. IMPRESSION: 12 mm stone in the distal common bile duct. Multiple gallstones
--- NOTE | 2017-11-01 11:22 | PN ---
DATE: 11/01/2017 OUTSIDE PLANT TECHNICIAN NOTE SUBJECTIVE: The patient is resting in bed, awake and alert, but speaks very little Malag[place]. The patient initially presented with altered mental status, but seemed to have cleared, initially presented with temperature as well. At this time, she has no complaints of any chest pain. No obvious shortness of breath, cough or wheezing. No abdominal pain or diarrhea. PHYSICAL EXAMINATION: VITAL SIGNS: The patient is noted to have temperature of 98.4, pulse is 79, respirations are 21, BP is 131/62, and O2 saturation is 97% on room air. HEENT: Head is atraumatic, normocephalic. Eyes are reactive to light. Ears, nose and throat seemed to be within normal limits. NECK: Supple. No JVD. No thyroid enlargement, no lymph nodes. HEART: Regular rate and rhythm. Normal S1 and S2. LUNGS: Reveal good breath sounds bilaterally. ABDOMEN: Soft. Decreased bowel sounds. GENITALIA AND RECTAL: Deferred. MUSCULOSKELETAL: No joint deformities. EXTREMITIES: Reveal trace lower extremity edema. NEUROLOGIC: She seems to be grossly intact. LABORATORY DATA: As far as her laboratories are concerned, her white count is 3.7, hemoglobin is 14.0, and hematocrit is 41.6 with platelets of 189,000. The patient's sodium is 137, potassium is 3.7, chloride is 108, CO2 of 23 with BUN of 8, creatinine of 0.7, and glucose of 113. Note that her troponins have increased to 0.13. IMPRESSION: This patient has possible cholecystitis, presented with fever and hypotension. The patient also has increased troponins so we will have to rule out myocardial infarction. She has a history of atrial flutter and rapid ventricular response as well. There may be a component of sepsis as well with increased temperature. PLAN: We will continue with recommendations from GI as well as Cardiology and Infectious Disease. The patient is getting heparin and IV fluids as well as Tylenol for any temperature. She is on Zofran and is on Zosyn for antibiotics. The patient is scheduled for MRI of the abdomen and we will continue to treat aggressively along with the other consultants and the primary care doctor. Octavio William MD
[2017-11-01 12:06] LABS: BILIRUBIN,DIRECT 4.5 mg/dL (0.0-0.4)
[2017-11-01] MEDS: Meropenem IV 1 gm in NS 50 ML IVPB SCH ×2 (14:03→21:49)
[2017-11-01] MEDS ORDERED: Digoxin 500 mcg/2ml (0.5 mg/2ml) Inj IVP ONE (14:11)
[2017-11-01] MEDS ORDERED: Indomethacin 50 MG Suppository PR ONE (14:23)
[2017-11-01] MEDS ORDERED: Iohexol 240 (50 ml) ONE (14:24)
--- NOTE | 2017-11-01 14:39 | CP.PCM.CON ---
<Hugh Tuttle - Last Filed: 11/01/17 16:40> History of Present Illness - History of Present Illness History of Present Illness: Surgery Consult note. Dr. Saleh 77yo F with no significant PMHx here for evaluation of Abdominal pain. As per chart review, patient arrived with altered mental status, RUQ pain, jaundice and fever. Currently, patient states that she feels much better, is alert and oriented. Patient states that she felt RUQ pain 2 days ago which started a few hours after eating regular meal. She states that she had 2 episodes of vomiting , non-bloody, non-bilious. Never has similar symptoms in the past. Denies any diarrhea. No CP/SOB. No F/C currently. No Headaches. No sick contacts. Denies any urinary complaints. CT Abd/Pelvis performed in ER with evidence of CBD dilation. Abd US with evidence of cholelithiasis. PMHx: denies (No routine PMD follow up for 30 years) PSHx: Denies Social Hx: Denies Tobacco, denies ETOH, denies illicit drugs NKDA Review of Systems - Review of Systems All systems: reviewed and no additional remarkable complaints except - Constitutional Constitutional: Chills, Fever - Cardiovascular Cardiovascular: absent: Chest Pain, Dyspnea - Respiratory Respiratory: absent: Cough, Dyspnea - Gastrointestinal Gastrointestinal: Abdominal Pain, Nausea, Vomiting. absent: Diarrhea - Genitourinary Genitourinary: absent: Dysuria Past Patient History - Past Social History Smoking Status: Never Smoked - CARDIAC Hx Hypertension: Yes - MUSCULOSKELETAL/RHEUMATOLOGICAL Hx Falls: No - PSYCHIATRIC Hx Substance Use: No Meds Allergies/Adverse Reactions: Allergies Allergy/AdvReac Type Severity Reaction Status Date / Time No Known Allergies Allergy Verified 10/31/17 21:14 - Medications Medications: Current Medications Acetaminophen (Tylenol 325mg Tab) 650 mg PO Q4 PRN PRN Reason: Fever >100.4 F Aspirin (Ecotrin) 81 mg PO DAILY CHARI Last Admin: 11/01/17 10:03 Dose: 81 mg diltiaZEM IVPB 100mg in NS (Cardizem 100mg In Ns) 100 mls @ 5 mls/hr IV .Q20H PRN; Protocol; 5 MG/HR PRN Reason: TITRATE PER MD ORDER Last Titration: 11/01/17 14:23 Dose: 10 mg/hr, 10 mls/hr Sodium Chloride (Sodium Chloride 0.9%) 1,000 mls @ 125 mls/hr IV .Q8H CHARI Last Admin: 11/01/17 14:05 Dose: 125 mls/hr Heparin Sodium/Sodium Chloride (Heparin 35919 Units/250ml 1/2 Normal Saline) 25 ,000 units in 250 mls @ 17.57 mls/hr IV .[id number] PRN; Protocol; 18 UNITS/KG/HR PRN Reason: ADJUST RATE PER PROTOCOL Last Titration: 11/01/17 10:02 Dose: 16 units/kg/hr, 15.618 mls/hr Meropenem (Merrem Iv 1 Gm Premix) 50 mls @ 100 mls/hr IVPB Q8 CHARI PRN Reason: Protocol Stop: 11/10/17 14:01 Last Admin: 11/01/17 14:03 Dose: 100 mls/hr Ondansetron HCl (Zofran Inj) 4 mg IVP Q6H PRN PRN Reason: Nausea/Vomiting Pantoprazole Sodium (Protonix Inj) 40 mg IVP DAILY [facility] Physical Exam - Constitutional Appears: Non-toxic, No Acute Distress - Head Exam Head Exam: ATRAUMATIC, NORMAL INSPECTION, NORMOCEPHALIC - Eye Exam Eye Exam: EOMI, Scleral icterus Additional comments: Left infraorbital pustules at different stages of healing (present for 30+ years ) - ENT Exam ENT Exam: Mucous Membranes Moist - Respiratory Exam Respiratory Exam: NORMAL BREATHING PATTERN. absent: Accessory Muscle Use, Respiratory Distress - Cardiovascular Exam Cardiovascular Exam: RRR. absent: JVD - GI/Abdominal Exam GI & Abdominal Exam: Soft. absent: Distended, Firm, Guarding, Hernia Additional comments: RUQ tenderness to palpation - Extremities Exam Extremities exam: Positive for: normal inspection. Negative for: calf tenderness - Back Exam Back exam: NORMAL INSPECTION - Neurological Exam Neurological exam: Alert, Oriented x3 - Psychiatric Exam Psychiatric exam: Normal Affect, Normal Mood - Skin Skin Exam: Dry, Intact, Warm Results - Vital Signs Recent Vital Signs: Last Vital Signs Temp 98.2 F 11/01/17 12:00 Pulse 113 H 11/01/17 13:40 Resp 21 11/01/17 13:40 BP 118/70 11/01/17 13:00 Pulse Ox 98 11/01/17 13:20 - Labs Result Diagrams: 10/31/17 21:22 11/01/17 05:00 Labs: Laboratory Results - last 24 hr 11/01/17 11/01/17 11/01/17 02:10 05:00 05:00 APTT pO2 144 H VBG pH 7.39 VBG pCO2 39.0 L VBG HCO3 23.6 VBG Total CO2 24.8 VBG O2 Sat (Calc) 100.0 H VBG Base Excess -1.2 L VBG Potassium 3.6 Sodium 137 137.0 Chloride 108 H 107.0 Glucose 114 H Lactate 0.9 FiO2 21.0 Potassium 3.7 Carbon Dioxide 23 Anion Gap 11 BUN 8 Creatinine 0.7 Est GFR ( Amer) > 60 Est GFR (Non-Af Amer) > 60 Random Glucose 113 H Calcium 8.1 L Phosphorus 3.2 Magnesium 1.8 Total Bilirubin 5.7 H Direct Bilirubin 4.5 H AST 155 H D ALT 232 H Alkaline Phosphatase 271 H D Lactate Dehydrogenase 434 410 Total Creatine Kinase 233 H 276 H CK-MB (CK-2) 1.4 1.9 CK-MB (CK-2) % Cancelled Cancelled Troponin I 0.09 D 0.13 H* D Total Protein 6.1 Albumin 3.0 Globulin 3.2 Albumin/Globulin Ratio 0.9 L Triglycerides 58 Cholesterol 138 LDL Cholesterol Direct 63 HDL Cholesterol 39 TSH 3rd Generation Venous Blood Potassium 3.6 11/01/17 11/01/17 05:00 08:45 APTT 88.6 H pO2 VBG pH VBG pCO2 VBG HCO3 VBG Total CO2 VBG O2 Sat (Calc) VBG Base Excess VBG Potassium Sodium Chloride Glucose Lactate FiO2 Potassium Carbon Dioxide Anion Gap BUN Creatinine Est GFR ( Amer) Est GFR (Non-Af Amer) Random Glucose Calcium Phosphorus Magnesium Total Bilirubin Direct Bilirubin AST ALT Alkaline Phosphatase Lactate Dehydrogenase Total Creatine Kinase CK-MB (CK-2) CK-MB (CK-2) % Troponin I Total Protein Albumin Globulin Albumin/Globulin Ratio Triglycerides Cholesterol LDL Cholesterol Direct HDL Cholesterol TSH 3rd Generation 0.75 Venous Blood Potassium Assessment & Plan - Assessment and Plan (Free Text) Assessment: 77yo F w/ ascending cholangitis secondary to choledocholithiasis - f/u ERCP and GI recs - Diet recs as per GI following ERCP - Continue IVF - Abx as per ID - Patient will benefit from cholecystectomy - Will plan for OR as we monitor patient's clinical course - f/u AM labs Further recs as per Dr. Therese Tuttle PGY1 Surgery pager: [phone] <Nathen Saleh - Last Filed: 11/08/17 20:58> Results - Vital Signs Recent Vital Signs: Last Vital Signs Temp 97.9 F 11/08/17 12:00 Pulse 85 11/08/17 14:20 Resp 27 H 11/08/17 14:20 BP 132/64 11/08/17 13:00 Pulse Ox 92 L 11/08/17 14:20 - Labs Result Diagrams: 11/08/17 05:30 11/08/17 05:30 Labs: Laboratory Results - last 24 hr 11/07/17 11/08/17 11/08/17 21:51 01:55 05:30 WBC 6.2 RBC 4.36 Hgb 12.8 Hct 39.1 MCV 89.7 MCH 29.4 MCHC 32.7 RDW 14.3 Plt Count 246 MPV 10.4 Gran % 75.7 H Lymph % (Auto) 18.5 L [place] % (Auto) 5.8 Eos % (Auto) 0.0 L Baso % (Auto) 0.0 Gran # 4.69 Lymph # 1.2 [place] # 0.4 Eos # 0.0 Baso # 0.00 APTT 80.9 H Sodium Potassium Chloride Carbon Dioxide Anion Gap BUN Creatinine Est GFR ( Amer) Est GFR (Non-Af Amer) POC Glucose (mg/dL) 144 H Random Glucose Calcium Phosphorus Magnesium Total Bilirubin AST ALT Alkaline Phosphatase Total Protein Albumin Globulin Albumin/Globulin Ratio 11/08/17 11/08/17 11/08/17 05:30 07:19 09:20 WBC RBC Hgb Hct MCV MCH MCHC RDW Plt Count MPV Gran % Lymph % (Auto) [place] % (Auto) Eos % (Auto) Baso % (Auto) Gran # Lymph # [place] # Eos # Baso # APTT 58.5 H Sodium 136 Potassium 4.5 Chloride 95 L Carbon Dioxide 36 H Anion Gap 9 L BUN 16 Creatinine 0.6 L Est GFR ( Amer) > 60 Est GFR (Non-Af Amer) > 60 POC Glucose (mg/dL) 167 H Random Glucose 175 H Calcium 9.1 Phosphorus 2.8 Magnesium 2.0 Total Bilirubin 0.9 AST 46 H D ALT 94 H Alkaline Phosphatase 142 H Total Protein 6.3 Albumin 3.0 Globulin 3.3 Albumin/Globulin Ratio 0.9 L 11/08/17 11:07 WBC RBC Hgb Hct MCV MCH MCHC RDW Plt Count MPV Gran % Lymph % (Auto) [place] % (Auto) Eos % (Auto) Baso % (Auto) Gran # Lymph # [place] # Eos # Baso # APTT Sodium Potassium Chloride Carbon Dioxide Anion Gap BUN Creatinine Est GFR ( Amer) Est GFR (Non-Af Amer) POC Glucose (mg/dL) 157 H Random Glucose Calcium Phosphorus Magnesium Total Bilirubin AST ALT Alkaline Phosphatase Total Protein Albumin Globulin Albumin/Globulin Ratio Attending/Attestation - Attestation I have personally seen and examined this patient.: Yes I have fully participated in the care of the patient.: Yes I have reviewed all pertinent clinical information: Yes Notes (Text): Pt was seen and examined at bedside Agree with above note and assessment Pt with Cholelithiasis and Cholangitis RUQ tenderness Labs and radiology reviewed GI consult for ERCP IV antibiotics NPO, IVF C/w current mx as per ICU team Plan d.w pt in detail Risk and benefit explained in detail.
--- NOTE | 2017-11-01 15:08 | CP.PCM.CON ---
<Bon Wang - Last Filed: 11/01/17 15:09> History of Present Illness - History of Present Illness History of Present Illness: Initial PGY4 GI Consult Tiffanie Taylor is a 77F w/ hx of HTN? who presented to the ER with complaints of fever, abd pain, juandice, and confusion. As per daughter and pt, pt was in her normal health prior to 2-3 days ago. Upon my interaction, pt is alert and oriented x3. She describes having RUQ pain radiating to all other quadrants. Patient also stated that she had one episode of nonbloody nonbilious emesis on the day of admission at home and one episode in the ED. She also reported 4-5 episodes of diarrhea 2 days ago with no reported blood or melena; stated her stool was soft and not watery. As per daughter and EMR. Patient's AMS was sudden in onset. She denied any chest pain, palpitations, SOB, abd pain, nausea , vomiting, pain/swelling in her legs bilaterally. Pt was noted to be in a- flutter in the ER and receiving cardizem. She also had concurrent rise in troponins without CP. She was started on heparin which was stopped at 2pm. She is receiving broad spectrum abx. MRCP revealed a 1.2cm stone in the distal CBD ROS: 12 point review of systems negative except as indicated in HPI PMHx: possible HTN dx while in [place], no other medical hx known due to lack of medical follow up PSurgHx: denies Family Hx: denies Social Hx: denies EtOH/tobacco/illicit drug use Meds: Please see medication reconciliation Endo hx: None Past Patient History - Past Social History Smoking Status: Never Smoked - CARDIAC Hx Hypertension: Yes - MUSCULOSKELETAL/RHEUMATOLOGICAL Hx Falls: No - PSYCHIATRIC Hx Substance Use: No Meds Allergies/Adverse Reactions: Allergies Allergy/AdvReac Type Severity Reaction Status Date / Time No Known Allergies Allergy Verified 10/31/17 21:14 - Medications Medications: Current Medications Acetaminophen (Tylenol 325mg Tab) 650 mg PO Q4 PRN PRN Reason: Fever >100.4 F Aspirin (Ecotrin) 81 mg PO DAILY [facility] Last Admin: 11/01/17 10:03 Dose: 81 mg diltiaZEM IVPB 100mg in NS (Cardizem 100mg In Ns) 100 mls @ 5 mls/hr IV .Q20H PRN; Protocol; 5 MG/HR PRN Reason: TITRATE PER MD ORDER Last Titration: 11/01/17 14:51 Dose: 5 mg/hr, 5 mls/hr Sodium Chloride (Sodium Chloride 0.9%) 1,000 mls @ 125 mls/hr IV .Q8H [facility]I Last Admin: 11/01/17 14:05 Dose: 125 mls/hr Heparin Sodium/Sodium Chloride (Heparin 58638 Units/250ml 1/2 Normal Saline) 25 ,000 units in 250 mls @ 17.57 mls/hr IV .[id number] PRN; Protocol; 18 UNITS/KG/HR PRN Reason: ADJUST RATE PER PROTOCOL Last Titration: 11/01/17 10:02 Dose: 16 units/kg/hr, 15.618 mls/hr Meropenem (Merrem Iv 1 Gm Premix) 50 mls @ 100 mls/hr IVPB Q8 [facility]I PRN Reason: Protocol Stop: 11/10/17 14:01 Last Admin: 11/01/17 14:03 Dose: 100 mls/hr Ondansetron HCl (Zofran Inj) 4 mg IVP Q6H PRN PRN Reason: Nausea/Vomiting Pantoprazole Sodium (Protonix Inj) 40 mg IVP DAILY [facility] Results - Vital Signs Recent Vital Signs: Last Vital Signs Temp 98.2 F 11/01/17 12:00 Pulse 113 H 11/01/17 13:40 Resp 21 11/01/17 13:40 BP 118/70 11/01/17 13:00 Pulse Ox 98 11/01/17 13:20 - Labs Result Diagrams: 10/31/17 21:22 11/01/17 05:00 Labs: Laboratory Results - last 24 hr 11/01/17 11/01/17 11/01/17 02:10 05:00 05:00 APTT pO2 144 H VBG pH 7.39 VBG pCO2 39.0 L VBG HCO3 23.6 VBG Total CO2 24.8 VBG O2 Sat (Calc) 100.0 H VBG Base Excess -1.2 L VBG Potassium 3.6 Sodium 137 137.0 Chloride 108 H 107.0 Glucose 114 H Lactate 0.9 FiO2 21.0 Potassium 3.7 Carbon Dioxide 23 Anion Gap 11 BUN 8 Creatinine 0.7 Est GFR ( Amer) > 60 Est GFR (Non-Af Amer) > 60 Random Glucose 113 H Calcium 8.1 L Phosphorus 3.2 Magnesium 1.8 Total Bilirubin 5.7 H Direct Bilirubin 4.5 H AST 155 H D ALT 232 H Alkaline Phosphatase 271 H D Lactate Dehydrogenase 434 410 Total Creatine Kinase 233 H 276 H CK-MB (CK-2) 1.4 1.9 CK-MB (CK-2) % Cancelled Cancelled Troponin I 0.09 D 0.13 H* D Total Protein 6.1 Albumin 3.0 Globulin 3.2 Albumin/Globulin Ratio 0.9 L Triglycerides 58 Cholesterol 138 LDL Cholesterol Direct 63 HDL Cholesterol 39 TSH 3rd Generation Venous Blood Potassium 3.6 11/01/17 11/01/17 05:00 08:45 APTT 88.6 H pO2 VBG pH VBG pCO2 VBG HCO3 VBG Total CO2 VBG O2 Sat (Calc) VBG Base Excess VBG Potassium Sodium Chloride Glucose Lactate FiO2 Potassium Carbon Dioxide Anion Gap BUN Creatinine Est GFR ( Amer) Est GFR (Non-Af Amer) Random Glucose Calcium Phosphorus Magnesium Total Bilirubin Direct Bilirubin AST ALT Alkaline Phosphatase Lactate Dehydrogenase Total Creatine Kinase CK-MB (CK-2) CK-MB (CK-2) % Troponin I Total Protein Albumin Globulin Albumin/Globulin Ratio Triglycerides Cholesterol LDL Cholesterol Direct HDL Cholesterol TSH 3rd Generation 0.75 Venous Blood Potassium <Collin Garcia - Last Filed: 11/01/17 15:25> Meds - Medications Medications: Current Medications Acetaminophen (Tylenol 325mg Tab) 650 mg PO Q4 PRN PRN Reason: Fever >100.4 F Aspirin (Ecotrin) 81 mg PO DAILY [facility] Last Admin: 11/01/17 10:03 Dose: 81 mg diltiaZEM IVPB 100mg in NS (Cardizem 100mg In Ns) 100 mls @ 5 mls/hr IV .Q20H PRN; Protocol; 5 MG/HR PRN Reason: TITRATE PER MD ORDER Last Titration: 11/01/17 14:51 Dose: 5 mg/hr, 5 mls/hr Sodium Chloride (Sodium Chloride 0.9%) 1,000 mls @ 125 mls/hr IV .Q8H [facility] Last Admin: 11/01/17 14:05 Dose: 125 mls/hr Heparin Sodium/Sodium Chloride (Heparin 11225 Units/250ml 1/2 Normal Saline) 25 ,000 units in 250 mls @ 17.57 mls/hr IV .[id number] PRN; Protocol; 18 UNITS/KG/HR PRN Reason: ADJUST RATE PER PROTOCOL Last Titration: 11/01/17 10:02 Dose: 16 units/kg/hr, 15.618 mls/hr Meropenem (Merrem Iv 1 Gm Premix) 50 mls @ 100 mls/hr IVPB Q8 [facility]I PRN Reason: Protocol Stop: 11/10/17 14:01 Last Admin: 11/01/17 14:03 Dose: 100 mls/hr Ondansetron HCl (Zofran Inj) 4 mg IVP Q6H PRN PRN Reason: Nausea/Vomiting Pantoprazole Sodium (Protonix Inj) 40 mg IVP DAILY [facility] Physical Exam - Constitutional Appears: No Acute Distress Additional comments: elderly obese female - Head Exam Head Exam: ATRAUMATIC, NORMOCEPHALIC - Eye Exam Eye Exam: PERRL, Scleral icterus Additional comments: left eye pustules - ENT Exam ENT Exam: Mucous Membranes Moist, Normal Oropharynx - Neck Exam Neck exam: Negative for: Lymphadenopathy - Respiratory Exam Respiratory Exam: Clear to Auscultation Bilateral, NORMAL BREATHING PATTERN. absent: Wheezes, Respiratory Distress - Cardiovascular Exam Cardiovascular Exam: Irregular Rhythm, +S1, +S2 - GI/Abdominal Exam GI & Abdominal Exam: Soft. absent: Guarding, Rebound, Rigid, Tenderness - Extremities Exam Extremities exam: Positive for: normal capillary refill. Negative for: pedal edema - Neurological Exam Neurological exam: Alert, Oriented x3 - Psychiatric Exam Psychiatric exam: Normal Affect, Normal Mood - Skin Skin Exam: Dry, Warm Results - Vital Signs Recent Vital Signs: Last Vital Signs Temp 98.2 F 11/01/17 12:00 Pulse 113 H 11/01/17 13:40 Resp 21 11/01/17 13:40 BP 118/70 11/01/17 13:00 Pulse Ox 98 11/01/17 13:20 - Labs Result Diagrams: 10/31/17 21:22 11/01/17 05:00 Labs: Laboratory Results - last 24 hr 11/01/17 11/01/17 11/01/17 02:10 05:00 05:00 APTT pO2 144 H VBG pH 7.39 VBG pCO2 39.0 L VBG HCO3 23.6 VBG Total CO2 24.8 VBG O2 Sat (Calc) 100.0 H VBG Base Excess -1.2 L VBG Potassium 3.6 Sodium 137 137.0 Chloride 108 H 107.0 Glucose 114 H Lactate 0.9 FiO2 21.0 Potassium 3.7 Carbon Dioxide 23 Anion Gap 11 BUN 8 Creatinine 0.7 Est GFR ( Amer) > 60 Est GFR (Non-Af Amer) > 60 Random Glucose 113 H Calcium 8.1 L Phosphorus 3.2 Magnesium 1.8 Total Bilirubin 5.7 H Direct Bilirubin 4.5 H AST 155 H D ALT 232 H Alkaline Phosphatase 271 H D Lactate Dehydrogenase 434 410 Total Creatine Kinase 233 H 276 H CK-MB (CK-2) 1.4 1.9 CK-MB (CK-2) % Cancelled Cancelled Troponin I 0.09 D 0.13 H* D Total Protein 6.1 Albumin 3.0 Globulin 3.2 Albumin/Globulin Ratio 0.9 L Triglycerides 58 Cholesterol 138 LDL Cholesterol Direct 63 HDL Cholesterol 39 TSH 3rd Generation Venous Blood Potassium 3.6 11/01/17 11/01/17 05:00 08:45 APTT 88.6 H pO2 VBG pH VBG pCO2 VBG HCO3 VBG Total CO2 VBG O2 Sat (Calc) VBG Base Excess VBG Potassium Sodium Chloride Glucose Lactate FiO2 Potassium Carbon Dioxide Anion Gap BUN Creatinine Est GFR ( Amer) Est GFR (Non-Af Amer) Random Glucose Calcium Phosphorus Magnesium Total Bilirubin Direct Bilirubin AST ALT Alkaline Phosphatase Lactate Dehydrogenase Total Creatine Kinase CK-MB (CK-2) CK-MB (CK-2) % Troponin I Total Protein Albumin Globulin Albumin/Globulin Ratio Triglycerides Cholesterol LDL Cholesterol Direct HDL Cholesterol TSH 3rd Generation 0.75 Venous Blood Potassium Attending/Attestation - Attestation I have personally seen and examined this patient.: Yes I have fully participated in the care of the patient.: Yes I have reviewed all pertinent clinical information: Yes Notes (Text): 11/01/17 15:22 77 year old female who presents to the hospital with acute cholangitis, sepsis, characterized by Raynaud's pentad on admission, with hypotension/tachycardia/AMS /Jaundice, found to have CBD stone. 1. Acute cholangitis 2. Choledocholithiasis 3. Sepsis Plan: -recommend urgent ERCP today -NPO -broad spectrum IV antibiotics -IV hydration/resuscitation per ICU -discussed the risks/benefits/alternatives of the procedure including bleeding, perforation, pancreatitis, and infection as well as the risk of anasthesia including cardiac events and they both agree to proceed
[2017-11-01] MEDS ORDERED: Propofol 10 mg/ml Inj (20 ML) ONE (15:25)
[2017-11-01] MEDS ORDERED: Midazolam 2 MG/2 ML VIAL ONE (15:25)
[2017-11-01] MEDS ORDERED: Lidocaine 2% Inj (20ml) ONE (15:28)
[2017-11-01] MEDS ORDERED: Rocuronium 10 mg/ml (5 ml) ONE (15:30)
--- NOTE | 2017-11-01 15:37 | CARD ---
APPROVED REPORT EKG Measurement Heart [id number] P69 [id number] <Conclusion> Atrial flutter with variable AV block with premature ventricular or aberrantly conducted complexes Nonspecific ST and T wave abnormality Abnormal ECG
[2017-11-01] MEDS ORDERED: Phenylephrine 10 mg/ml Inj ONE (15:39)
--- NOTE | 2017-11-01 15:40 | CARD ---
APPROVED REPORT EKG Measurement Heart [id number] <Conclusion> Atrial flutter with variable AV block with premature ventricular or aberrantly conducted complexes ST & T wave abnormality, consider inferolateral ischemia Abnormal ECG
[2017-11-01] MEDS ORDERED: Esmolol 100 mg/10ml Inj IV ONE (15:44)
[2017-11-01] MEDS ORDERED: Glycopyrrolate 0.2 mg/ml (2ml vial) ONE (15:49)
[2017-11-01] MEDS ORDERED: Neostigmine Methylsulfate 3mg/3ml Syringe IV ONE ×2 (15:49→16:09)
--- NOTE | 2017-11-01 20:23 | CON ---
DATE: 11/01/2017 REQUESTING PHYSICIAN: Lesly Paul MD REASON FOR CONSULTATION: Atrial flutter. HISTORY OF PRESENT ILLNESS: This is a 77-year-old woman who speaks predominantly Fijian was brought to the emergency room by her daughter for altered mental status. She apparently had nausea and vomiting earlier in the day. She was found to be febrile with a temperature of 104. CT of the abdomen suggested possible cholecystitis. She was noted to be in atrial flutter and admitted to the CCU. She is currently on IV heparin as well as IV diltiazem. PAST MEDICAL HISTORY: Her past history is reportedly relatively unremarkable. Unclear as to how long she has been in atrial flutter. MEDICATIONS: Medications at home reportedly are none. Current medications include IV diltiazem, IV heparin, Ecotrin, Tylenol, and Zosyn. SOCIAL HISTORY: She does not smoke or drink. She lives with her family. FAMILY HISTORY: Unobtainable. REVIEW OF SYSTEMS: A 10-point review of systems is otherwise unobtainable as well. PHYSICAL EXAMINATION: GENERAL: She is an overweight elderly woman. VITAL SIGNS: Her blood pressure is 130/60 with a pulse of 80, in atrial flutter, respirations are 16. She currently has a temperature of 98.4. HEENT: Normocephalic, atraumatic. NECK: Supple. No JVD noted. CHEST: A few scattered rhonchi heard. HEART: PMI displaced laterally with systolic murmur in the left sternal border. ABDOMEN: Soft, obese, protuberant with bowel sounds present. No evidence of tenderness or rebound at present. EXTREMITIES: Reveal no clubbing, cyanosis, or edema. SKIN: Warm and dry. PSYCHIATRIC: Normal mood and affect. NEUROLOGIC: No gross motor or sensory is appreciable. DIAGNOSTIC DATA: Electrocardiogram reveals atrial flutter with 2:1 conduction, followup echocardiogram reveals atrial flutter with variable conduction. No acute ST-T changes. Abdominal CT as mentioned above with possible evidence of cholecystitis. Chest x-ray reveals normal cardiac silhouette with clear lung yan. White count is 3.7, BUN and creatinine of 14 and 41.6 with a platelet count 189,000. Initial PT/PTT 13.9 and 26.3, repeat PTT on heparin is 88.6, potassium 3.7, BUN and creatinine 8 and 0.7. AST/ALT initially 266 and 346, now improved to 155 and 232, bilirubin was 8.4, repeat is 5.9. Alkaline phosphatase 271. Initial CK 59 which increased to 276. Initial troponin is nondetectable. Repeat is 0.13. TSH 0.75. IMPRESSION: 1. Apparent cholecystitis, appears clinically improved by description. 2. Transient hypotension last night, clinically improved. 3. Atrial flutter. Duration uncertain, currently on IV heparin and diltiazem. 4. Mildly elevated troponin, possibly jhp-PR-saggrum elevation myocardial infarction versus stress ischemia due to illness and rapid rate. RECOMMENDATIONS: Heparin and diltiazem will be continued intravenously for now. Once stable, will change to oral administration. Beta-theodore therapy and aspirin should be added. An echocardiogram will be obtained to assess her left atrial size as well as LV size and function. Followup enzymes will be planned for the morning. If she needs urgent abdominal surgery or endoscopic evaluation, she would appear to be at mildly increased risk but this does not appear prohibitive. She appears optimized to proceed at this time. Thank you for this consultation. We will be happy to follow her through her hospital course and make further recommendations as appropriate. Manas Barahona MD MTDD
--- NOTE | 2017-11-01 20:58 | CON ---
DATE: 11/01/2017 The patient was seen in the CCU 129, bed 2. CHIEF COMPLAINT: Weakness times several days. HISTORY OF PRESENT ILLNESS: This is a 77-year-old female, Bangladeshi-speaking, who was brought into the emergency room by the daughter because of vomiting an hour before and questionably having chills and change in mental status. 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 The patient states that she had abdominal discomfort. No diarrhea. No chest pain. The patient was seen by Dr. Kohler in the emergency room yesterday, had complained of abdominal pain and nausea and vomiting and did have a temperature of 104 in the emergency room. Infectious Disease consultation requested. REVIEW OF SYSTEMS: Reveals fevers and chills, abdominal discomfort in midepigastric location. No diarrhea. No dysuria or frequency. PAST MEDICAL HISTORY: Significant for obesity with a BMI of 37. No alcohol use. No tobacco use. The patient states that she also had this lesion on her left eye for 30 years which is not painful, and she was seeing doctors in [place] for it. MEDICATIONS AT HOME: No meds at home. PHYSICAL EXAMINATION: VITAL SIGNS: The patient is in bed with a temperature of 99, T-max was 104, blood pressure 130/60, it was down to 85, and her heart rate of 85 with a respiratory rate of 21. HEENT: Unremarkable. NECK: Supple. LUNGS: Have decreased breath sounds. HEART: Normal S1, S2. ABDOMEN: Soft. Mild tenderness in the right upper quadrant. No rebound or guarding. Laboratory examination reveals a white count of 3.7, hemoglobin of 14, platelets of 189. Coagulation is noted. Chemistries reveal a BUN of 12, creatinine of 0.8. LFTs are elevated, alk phos is elevated. Troponin is mildly elevated. Urinalysis is noted. Microbiology is pending. The patient also had a CAT scan of the abdomen and pelvis which revealed pericholecystic fluid and edema suggestive of cholecystitis with a dilated common bile duct. The patient also had an abdominal ultrasound. Noted to have gallstones and sludge, prominent common bile duct. ASSESSMENT/PLAN: A 77-year-old Bangladeshi female admitted with obesity, body mass index of 31, with abdominal pain, temperature of 104, and hypotension with leukopenia. 1. Severe sepsis secondary to acute cholecystitis. We will treat the patient with meropenem pending GI evaluation. Patient is scheduled for MRCP. Blood cultures are pending. Urinalysis and urine cultures are pending. We will make further recommendations upon the availability of initial results. Price Holden MD
[2017-11-02] MEDS: Sodium Chloride 0.9% 1,000 ML IV SCH ×4 (01:00→23:43)
[2017-11-02] MEDS: Heparin25000 units/250ml 1/2NS 25,000 UNITS/250 ML BAG IV PRN ×2 (01:38→19:58)
[2017-11-02 04:55] LABS: TROPONIN I 0.08 ng/mL
[2017-11-02 05:04] LABS: ALB/GLOB RATIO 0.9 (1.1-1.8); ALBUMIN 3.2 g/dL (3.0-4.8); ALT/SGPT 196 U/L (7-56); AST/SGOT 135 U/L (14-36); BLOOD UREA NITROGEN 12 mg/dL (7-21); CALCIUM 8.5 mg/dL (8.4-10.5); GFR AFRICAN-AMERICAN > 60; GFR NON-AFRICAN AMERICAN > 60
[2017-11-02] MEDS: Meropenem IV 1 gm in NS 50 ML IVPB SCH ×3 (05:05→21:57)
[2017-11-02 05:06] LABS: WHITE BLOOD COUNT 6.5 10^3/ul (4.5-11.0)
[2017-11-02 05:07] LABS: HEMOGLOBIN 11.8 g/dL (12.0-16.0); MEAN CELL VOLUME 89.8 fl (80.0-105.0); MEAN CORPUSCULAR HEMOGLOBIN 28.8 pg (25.0-35.0); MEAN CORPUSCULAR HGB CONC 32.1 g/dl (31.0-37.0); RBC 4.1 10^6/uL (3.5-6.1); RED CELL DISTRIBUTION WIDTH 14.8 % (11.5-14.5)
[2017-11-02 05:08] LABS: BASO % 0.3 % (0.0-3.0); EOS % 0.3 % (1.5-5.0); GRAN # 4.7 (1.4-6.5); GRAN % 72.9 % (50.0-68.0); LYMPH # 1.4 (1.2-3.4); LYMPH % 21.1 % (22.0-35.0); MONO % 5.4 % (1.0-6.0)
[2017-11-02 05:09] LABS: BASO # 0.02 K/mm3 (0.0-2.0); MONO # 0.4 (0.1-0.6)
--- NOTE | 2017-11-02 05:32 | CARD ---
APPROVED REPORT EXAM: Two-dimensional and M-mode echocardiogram with Doppler and color Doppler. INDICATION Atrial flutter 2D DIMENSIONS Left Atrium (2D)4.7 (1.6-4.0cm)IVSd1.3 (0.7-1.1cm) Aortic Root (2D)3.1 (2.0-3.7cm)LVDd5.0 (3.9-5.9cm) PWd1.1 (0.7-1.1cm)LVDs3.5 (2.5-4.0cm) FS (%) 31.5 %LVEF (%)59.1 (>50%) M-Mode DIMENSIONS Aortic Cusp Exc.1.70 (1.5-2.0cm) Mitral Valve MV E Aytzerdv58.5cm/sMV A Ufivevdi76.6cm/sE/A ratio2.6 TDI Lateral E' Peak V10.90cm/sMedial E' Peak V8.29cm/sE/Lateral E'8.2 E/Medial E'10.8 Tricuspid Valve TR Peak Rhpcoitg144uv/sRAP [id number] Peak Gr.28mmHg [id number] LEFT VENTRICLE The left ventricle is normal size. There is mild concentric left ventricular hypertrophy. The left ventricular function is normal. The left ventricular ejection fraction is within the normal range. There is borderline hypokinesis of the apex. RIGHT VENTRICLE The right ventricle is normal size. The right ventricular systolic function is normal. ATRIA The left atrium is moderately dilated. The right atrium size is normal. The interatrial septum is intact with no evidence for an atrial septal defect. AORTIC VALVE The aortic valve is moderately sclerotic. No aortic regurgitation is present. There is no aortic valvular stenosis. MITRAL VALVE The mitral valve is normal in structure. Mitral regurgitation is mild. TRICUSPID VALVE The tricuspid valve is normal in structure. There is mild tricuspid regurgitation. PULMONIC VALVE The pulmonary valve is normal in structure. GREAT VESSELS The aortic root is normal in size. The IVC is normal in size and collapses >50% with inspiration. PERICARDIAL EFFUSION There is no pleural effusion. There is no pericardial effusion. <Conclusion> Dilated LA. Normal LV size and systolic function. Mild apical hypokinesis. Mild concentric LVH. Mild MR and TR.
--- NOTE | 2017-11-02 08:59 | CP.PCM.PN ---
Subjective - Date & Time of Evaluation Date of Evaluation: 11/02/17 Time of Evaluation: 08:55 - Subjective Subjective: Patient seen and examined, resting comfortably in bed. No acute events overnight, she denies abdominal pain, nausea, vomiting, fever/chills. S/p ERCP with stent placement yesterday. Review of vitals from today are normal. 12 point review of systems performed, negative aside from mentioned above. Objective - Vital Signs/Intake and Output Vital Signs (last 24 hours): Temp Pulse Resp BP Pulse Ox 98 F 79 22 150/71 98 11/02/17 06:00 11/02/17 07:50 11/02/17 07:50 11/02/17 07:00 11/02/17 07:50 Intake and Output: 11/02/17 11/02/17 06:59 18:59 Intake Total 1960 Output Total 350 Balance 1610 - Medications Medications: Current Medications Acetaminophen (Tylenol 325mg Tab) 650 mg PO Q4 PRN PRN Reason: Fever >100.4 F Aspirin (Ecotrin) 81 mg PO DAILY [facility] Last Admin: 11/01/17 10:03 Dose: 81 mg diltiaZEM IVPB 100mg in NS (Cardizem 100mg In Ns) 100 mls @ 5 mls/hr IV .Q20H PRN; Protocol; 5 MG/HR PRN Reason: TITRATE PER MD ORDER Last Titration: 11/01/17 18:01 Dose: 0 mg/hr, 0 mls/hr Sodium Chloride (Sodium Chloride 0.9%) 1,000 mls @ 125 mls/hr IV .Q8H [facility] Last Admin: 11/02/17 01:00 Dose: 125 mls/hr Heparin Sodium/Sodium Chloride (Heparin 54115 Units/250ml 1/2 Normal Saline) 25 ,000 units in 250 mls @ 17.57 mls/hr IV .[id number] PRN; Protocol; 18 UNITS/KG/HR PRN Reason: ADJUST RATE PER PROTOCOL Last Titration: 11/02/17 03:10 Dose: 14 units/kg/hr, 13.666 mls/hr Meropenem (Merrem Iv 1 Gm Premix) 50 mls @ 100 mls/hr IVPB Q8 [facility] PRN Reason: Protocol Stop: 11/10/17 14:01 Last Admin: 11/02/17 05:05 Dose: 100 mls/hr Ondansetron HCl (Zofran Inj) 4 mg IVP Q6H PRN PRN Reason: Nausea/Vomiting Pantoprazole Sodium (Protonix Inj) 40 mg IVP DAILY [facility] - Labs Labs: 11/02/17 04:30 11/02/17 04:30 PT 13.9 SECONDS (9.4-12.5) H 10/31/17 21:22 INR 1.21 (0.93-1.08) H 10/31/17 21:22 APTT 93.4 Seconds (25.1-36.5) H 11/02/17 02:25 - Constitutional Appears: Non-toxic, No Acute Distress - Head Exam Head Exam: NORMAL INSPECTION - Eye Exam Eye Exam: EOMI, Normal appearance - ENT Exam ENT Exam: Mucous Membranes Moist - Respiratory Exam Respiratory Exam: Clear to Ausculation Bilateral - Cardiovascular Exam Cardiovascular Exam: +S1, +S2 - GI/Abdominal Exam GI & Abdominal Exam: Soft, Normal Bowel Sounds Additional comments: non tender to palpation in four quadrants - Extremities Exam Extremities Exam: Normal Inspection - Skin Skin Exam: Dry, Intact, Normal Color, Warm Assessment and Plan - Assessment and Plan (Free Text) Assessment: HTN Obesity Sepsis, acute cholangitis, choledocholithiasis - s/p ERCP with stent placement yesterday Plan: - Full liquid diet as tolerated - LFTs trending down, continue to monitor - Continue with antibiotic therapy - Monitor blood cultures - Follow up surgical recommendations regarding cholecystectomy timing - Patient will eventually require repeat ERCP for stent removal and stone extraction, will continue to monitor patient clinical course
--- NOTE | 2017-11-02 09:16 | PN ---
DATE: 11/02/2017 SUBJECTIVE: The patient is seen lying in bed in the CCU. She is currently comfortable. She denies any chest pain or abdominal pain. She underwent ERCP yesterday with a biliary stent placement. She remains in atrial flutter and she remains on IV heparin, IV diltiazem has been discontinued. CURRENT MEDICATIONS: Include aspirin, IV heparin, meropenem, Protonix. OBJECTIVE: GENERAL: She is an obese elderly woman. VITAL SIGNS: Her blood pressure is 142/70 with a pulse of 75 and in atrial flutter, respirations are 14, she is afebrile. HEENT: No JVD. CHEST: Few scattered rhonchi heard. HEART: PMI displaced laterally and a soft systolic murmur is noted at the lower left sternal border. ABDOMEN: Soft, nontender, normoactive bowel sounds. EXTREMITIES: No edema. DIAGNOSTIC DATA: Potassium is 3.9, BUN and creatinine are 12 and 0.6, glucose is 64. White count 6.5, hemoglobin and hematocrit of 11.8 and 36.8 with platelet count of 171,000. PTT is 93. Her morning troponin is 0.08. AST and ALT are 135 and 196 with bilirubin of 1.8. Echocardiogram reveals mild concentric LVH with normal LV size and systolic function, left atrium is dilated with mild apical hypokinesis and mild mitral and tricuspid regurgitation. IMPRESSION: 1. Acute cholecystitis, status post biliary stent placement. 2. Atrial flutter, duration uncertain, currently with rate control and on IV heparin. 3. Borderline troponin, with no clear evidence of ischemia on electrocardiogram and absence of chest pain, may be due to demand ischemia. RECOMMENDATIONS: IV heparin will be continued for now. Rate control therapy for atrial flutter does not appear necessary at this time. Low-dose beta-theodore therapy will be added if needed for heart rate control. If she requires urgent cholecystectomy, she appears to be at mildly increased risk but appears optimized and stable to proceed. We will continue to follow and make further recommendations as appropriate. Manas Barahona MD [facility]
--- NOTE | 2017-11-02 09:31 | PN ---
DATE: 11/02/2017 SUBJECTIVE: The patient was seen earlier today in the ICU 129, in coronary care unit bed 2. She is awake and alert, doing well. No fevers and no chills. Her fevers responded. PHYSICAL EXAMINATION: VITAL SIGNS: Temperature is 98, blood pressure is 150/70, respiratory rate of 16. HEENT: Unremarkable. NECK: Supple. LUNGS: Decreased breath sounds. HEART: Normal S1, S2. ABDOMEN: Soft, nontender. LABORATORY DATA: Reveals a white count of 6.5, hemoglobin of 11, platelets of 171. BUN of 12, creatinine of 0.6. LFTs are elevated but improving. Procalcitonin is reported to be at 0.90 and troponin is elevated. Microbiology reveals the blood cultures are negative, urine cultures are negative and review of orders reveals the patient to be on meropenem. The patient's operative surgery, operative note from yesterday is reviewed. Gastroenterology note with an ERCP and insertion of the biliary straight stent and done by Dr. Garcia is reviewed. POSTOPERATIVE DIAGNOSIS: Common bile duct stone. ASSESSMENT AND PLAN: This is a 77-year-old female Malagasy speaking who was admitted through the emergency room and with a history of obesity with a BMI of 31, found to have severe sepsis secondary to acute cholecystitis, status post ERCP and biliary stent placed by Dr. Garcia. His consultation is reviewed. The patient is greatly improved. Currently, on meropenem. We will check on the jarvis culture results, may be able to switch to p.o. antibiotics to complete a short course of antibiotics. Price Holden MD
--- NOTE | 2017-11-02 12:27 | PN ---
DATE: 11/02/2017 BARREL TESTER NOTE SUBJECTIVE: The patient is resting in bed, awake and alert, but speaks very little Andorran. The patient's family member is at bedside. No complaints of any obvious pain just a little abdominal discomfort. No shortness of breath, no increased cough or wheezing and no diarrhea. PHYSICAL EXAMINATION: VITAL SIGNS: Note that her temperature is 98, pulse is 79, respirations are 22, and BP is 150/71. SKIN: Warm and dry. HEENT: Head is atraumatic, normocephalic. Eyes are reactive to light. Ears, nose, and throat seemed to be within normal limits. NECK: Supple. No JVD. No thyroid enlargement, no lymph nodes. HEART: Has regular rate and rhythm. Normal S1 and S2. LUNGS: Reveal good breath sounds bilaterally. ABDOMEN: Soft, tender to palpation. Decreased bowel sounds. GENITALIA AND RECTAL: Deferred. MUSCULOSKELETAL: No joint deformities. EXTREMITIES: Reveal trace lower extremity edema. NEUROLOGIC: She seemed to be grossly intact. LABORATORY DATA: As far as her laboratories are concerned, her white count is 6.5, hemoglobin is 11.8, and hematocrit is 36.8 with platelets of 171,000. Sodium is 140, potassium is 3.9, chloride is 109, CO2 of 21 with BUN of 12, creatinine of 0.6, and glucose of 64. The patient's troponin is normal at 0.08. IMPRESSION: This patient has cholecystitis and is status post a fever and hypotension. She has a history of atrial fibrillation and rapid ventricular response and we feel that there is a component of sepsis that seems to be resolving. PLAN: We will follow with GI as well as surgery and Cardiology and Infectious Disease. The patient is status post ERCP yesterday. She is on Zofran as well as Zosyn and we will continue to follow closely and treat aggressively along with the other consultants and the primary care doctor. Octavio William MD
--- NOTE | 2017-11-02 13:50 | CP.PCM.PN ---
Subjective - Date & Time of Evaluation Date of Evaluation: 11/02/17 Time of Evaluation: 13:42 - Subjective Subjective: Patient seen and examined in ICU. Patient is alert, awake. Denies any abdominal pain. Denies any chest pain, shortness of breath. Denied any palpitation. Denies any nausea, vomiting. Review of Systems - Constitutional Constitutional: absent: Fever, Chills - EENT Eyes: absent: Blurred Vision Nose/Mouth/Throat: absent: Epistaxis - Cardiovascular Cardiovascular: absent: Chest Pain, Diaphoresis, Dyspnea - Respiratory Respiratory: Cough. absent: Dyspnea, Hemoptysis - Gastrointestinal Gastrointestinal: absent: Abdominal Pain, Nausea, Vomiting - Musculoskeletal Musculoskeletal: absent: Abnormal Gait - Neurological Neurological: absent: Abnormal Gait, Confusion, Focal Weakness - Psychiatric Psychiatric: absent: Anxiety, Depression - Hematologic/Lymphatic Hematologic: absent: Easy Bleeding Objective - Vital Signs/Intake and Output Vital Signs (last 24 hours): Temp Pulse Resp BP Pulse Ox 98.4 F 107 H 20 128/72 98 11/02/17 11:41 11/02/17 12:20 11/02/17 12:20 11/02/17 12:00 11/02/17 12:20 Intake and Output: 11/02/17 11/02/17 06:59 18:59 Intake Total 1960 40 Output Total 350 Balance 1610 40 - Medications Medications: Current Medications Acetaminophen (Tylenol 325mg Tab) 650 mg PO Q4 PRN PRN Reason: Fever >100.4 F Aspirin (Ecotrin) 81 mg PO DAILY [facility] Last Admin: 11/02/17 10:40 Dose: 81 mg diltiaZEM IVPB 100mg in NS (Cardizem 100mg In Ns) 100 mls @ 5 mls/hr IV .Q20H PRN; Protocol; 5 MG/HR PRN Reason: TITRATE PER MD ORDER Last Titration: 11/01/17 18:01 Dose: 0 mg/hr, 0 mls/hr Sodium Chloride (Sodium Chloride 0.9%) 1,000 mls @ 125 mls/hr IV .Q8H [facility] Last Admin: 11/02/17 01:00 Dose: 125 mls/hr Heparin Sodium/Sodium Chloride (Heparin 35168 Units/250ml 1/2 Normal Saline) 25 ,000 units in 250 mls @ 17.57 mls/hr IV .[id number] PRN; Protocol; 18 UNITS/KG/HR PRN Reason: ADJUST RATE PER PROTOCOL Last Titration: 11/02/17 09:48 Dose: 12 units/kg/hr, 11.714 mls/hr Meropenem (Merrem Iv 1 Gm Premix) 50 mls @ 100 mls/hr IVPB Q8 CHARI PRN Reason: Protocol Stop: 11/10/17 14:01 Last Admin: 11/02/17 05:05 Dose: 100 mls/hr Metoprolol Tartrate (Lopressor) 25 mg PO BID [facility] Ondansetron HCl (Zofran Inj) 4 mg IVP Q6H PRN PRN Reason: Nausea/Vomiting Pantoprazole Sodium (Protonix Inj) 40 mg IVP DAILY [facility] Last Admin: 11/02/17 10:40 Dose: 40 mg - Labs Labs: 11/02/17 04:30 11/02/17 04:30 PT 13.9 SECONDS (9.4-12.5) H 10/31/17 21:22 INR 1.21 (0.93-1.08) H 10/31/17 21:22 APTT 84.1 Seconds (25.1-36.5) H 11/02/17 08:45 - Constitutional Appears: Well, Non-toxic - Head Exam Head Exam: NORMAL INSPECTION - Eye Exam Eye Exam: Normal appearance - ENT Exam ENT Exam: Mucous Membranes Moist - Respiratory Exam Respiratory Exam: NORMAL BREATHING PATTERN - Cardiovascular Exam Cardiovascular Exam: Irregular Rhythm - GI/Abdominal Exam GI & Abdominal Exam: Soft, Normal Bowel Sounds. absent: Tenderness - Extremities Exam Extremities Exam: absent: Pedal Edema - Back Exam Back Exam: absent: CVA tenderness (L), CVA tenderness (R) - Neurological Exam Neurological Exam: Alert - Psychiatric Exam Psychiatric exam: Normal Affect - Skin Skin Exam: Normal Color Assessment and Plan - Assessment and Plan (Free Text) Plan: 1. Patient is a 77-year-old lady admitted with abdominal pain. Found to have ascending cholangitis secondary to obstructed CBD stone. Status post ERCP and stent placement. Plan for ERCP and stone removal next week. Continue IV meropenem. Patient is afebrile and nontoxic today. ID evaluation appreciated. 2. Atrial fibrillation with rapid A. fib; continue Cardizem drip. Continue heparin drip. 3. Elevated LFTs; secondary to obstructed CBD stone. Resolving after stent placement. Monitor closely. 4. Elevated troponin; improving. Mostly secondary to demand ischemia. Continue IV heparin drip. Continue aspirin, metoprolol. Follow-up with cardiology closely. 5. Surgery evaluation appreciated. Patient needs cholecystectomy after Ercp and stone removal. Case discussed with GI and surgery in detail. Upon discharge the patient will be [facility] [place] [facility] [place].
--- NOTE | 2017-11-02 17:37 | CP.PCM.PN ---
<Zainab Leyva - Last Filed: 11/02/17 17:37> Subjective - Date & Time of Evaluation Date of Evaluation: 11/02/17 Time of Evaluation: 07:00 - Subjective Subjective: GENERAL SURGERY PROGRESS NOTE FOR DR. SALEH Patient seen and examined at bedside in the ICU. She states that she feels ok after the ERCP. She is tolerating her clear liquid diet. She denies nausea or vomiting, fever or chills. Objective - Vital Signs/Intake and Output Vital Signs (last 24 hours): Temp Pulse Resp BP Pulse Ox 98.4 F 70 19 155/76 H 96 11/02/17 11:41 11/02/17 17:20 11/02/17 17:20 11/02/17 17:05 11/02/17 17:20 Intake and Output: 11/02/17 11/02/17 06:59 18:59 Intake Total 1960 40 Output Total 350 Balance 1610 40 - Medications Medications: Current Medications Acetaminophen (Tylenol 325mg Tab) 650 mg PO Q4 PRN PRN Reason: Fever >100.4 F Aspirin (Ecotrin) 81 mg PO DAILY [facility] Last Admin: 11/02/17 10:40 Dose: 81 mg diltiaZEM IVPB 100mg in NS (Cardizem 100mg In Ns) 100 mls @ 5 mls/hr IV .Q20H PRN; Protocol; 5 MG/HR PRN Reason: TITRATE PER MD ORDER Last Titration: 11/01/17 18:01 Dose: 0 mg/hr, 0 mls/hr Sodium Chloride (Sodium Chloride 0.9%) 1,000 mls @ 125 mls/hr IV .Q8H [facility] Last Admin: 11/02/17 17:06 Dose: 125 mls/hr Heparin Sodium/Sodium Chloride (Heparin 80716 Units/250ml 1/2 Normal Saline) 25 ,000 units in 250 mls @ 17.57 mls/hr IV .[id number] PRN; Protocol; 18 UNITS/KG/HR PRN Reason: ADJUST RATE PER PROTOCOL Last Titration: 11/02/17 09:48 Dose: 12 units/kg/hr, 11.714 mls/hr Meropenem (Merrem Iv 1 Gm Premix) 50 mls @ 100 mls/hr IVPB Q8 CHARI PRN Reason: Protocol Stop: 11/10/17 14:01 Last Admin: 11/02/17 15:02 Dose: 100 mls/hr Metoprolol Tartrate (Lopressor) 25 mg PO BID [facility] Last Admin: 11/02/17 17:05 Dose: 25 mg Ondansetron HCl (Zofran Inj) 4 mg IVP Q6H PRN PRN Reason: Nausea/Vomiting Pantoprazole Sodium (Protonix Inj) 40 mg IVP DAILY [facility] Last Admin: 11/02/17 10:40 Dose: 40 mg - Labs Labs: 11/02/17 04:30 11/02/17 04:30 PT 13.9 SECONDS (9.4-12.5) H 10/31/17 21:22 INR 1.21 (0.93-1.08) H 10/31/17 21:22 APTT 69.6 Seconds (25.1-36.5) H 11/02/17 16:10 - Constitutional Appears: Non-toxic, No Acute Distress - Head Exam Head Exam: ATRAUMATIC, NORMAL INSPECTION - Eye Exam Eye Exam: EOMI, Normal appearance - Respiratory Exam Respiratory Exam: NORMAL BREATHING PATTERN - Cardiovascular Exam Cardiovascular Exam: +S1, +S2 - GI/Abdominal Exam GI & Abdominal Exam: Soft. absent: Distended, Guarding, Rigid, Rebound - Neurological Exam Neurological Exam: Alert, Awake, Oriented x3 - Psychiatric Exam Psychiatric exam: Normal Affect, Normal Mood - Skin Skin Exam: Dry, Normal Color, Warm Assessment and Plan - Assessment and Plan (Free Text) Assessment: 77yo F w/ ascending cholangitis secondary to choledocholithiasis s/p ERCP with stent placement - ERCP was done yesterday with 1 stone seen in main bile duct. 10F stent placed - GI planning on repeating ERCP for stone and stent removal - T bili and LFTs trending down - Diet recs as per GI - Continue IVF - Abx as per ID - Will need cholecystectomy after CBD stone removed Discussed plan with Dr. Therese Leyva PGY-3 <Nathen Saleh - Last Filed: 11/08/17 21:00> Objective - Vital Signs/Intake and Output Vital Signs (last 24 hours): Temp Pulse Resp BP Pulse Ox 97.9 F 85 27 H 132/64 92 L 11/08/17 12:00 11/08/17 14:20 11/08/17 14:20 11/08/17 13:00 11/08/17 14:20 Intake and Output: 11/08/17 11/09/17 18:59 06:59 Intake Total 120 Balance 120 - Labs Labs: 11/08/17 05:30 11/08/17 05:30 PT 11.3 SECONDS (9.4-12.5) 11/05/17 06:30 INR 0.98 (0.93-1.08) 11/05/17 06:30 APTT 58.5 Seconds (25.1-36.5) H 11/08/17 09:20 Attending/Attestation - Attestation I have personally seen and examined this patient.: Yes I have fully participated in the care of the patient.: Yes I have reviewed all pertinent clinical information, including history, physical exam and plan: Yes Notes (Text): Pt was seen and examined at bedside Agree with above note and assessment Pt is s/p ERCP and stent Labs is improving arrythmia present No abdominal tenderness IV antibiotics NPO, IVF Plan d.w pt in detail Risk and benefit explained in detail.
--- NOTE | 2017-11-02 20:45 | CARD ---
APPROVED REPORT EKG Measurement Heart [id number] <Conclusion> Atrial flutter with variable AV block Nonspecific T wave abnormality Prolonged QT Abnormal ECG
[2017-11-03] MEDS ORDERED: Metoprolol 1 mg/ml Inj IVP ONE (02:10)
[2017-11-03] MEDS ORDERED: Metoprolol 1 mg/ml Inj IVP STA (02:16)
[2017-11-03] MEDS ORDERED: Sodium Chloride 0.9% 1,000 ML IV SCH ×2 (03:12→13:17)
[2017-11-03] MEDS: Levalbuterol 0.63 MG/3 ML Inhal Soln UD IH SCH ×4 (03:44→19:57)
[2017-11-03] MEDS: Meropenem IV 1 gm in NS 50 ML IVPB SCH ×3 (05:24→21:22)
--- NOTE | 2017-11-03 06:50 | CP.CCUPN ---
<Viral Kerrima - Last Filed: 11/03/17 11:13> CCU Subjective - Physician Review Subjective (Free Text): 11/03/17 11:13 Patient seen and examined at bedside. Overnight patient's cardizem gtt was restarted as HR was elevated. Continues to be on heparin gtt. Patient reports she had some SOB and palpitations overnight but denied any acute complaints of fever, chills, headache, dizziness, chest pain, cough, abd pain, nausea, vomiting, bowel/bladder complaints, pain/swelling in her legs b/l. Patient tolerated CLD. She is POD#2 ERCP with stent placement. Critical Care Time Spent (in minutes): 45 CCU Objective - Vital Signs / Intake & Output Vital Signs (Last 4 hours): Vital Signs Pulse Resp BP Pulse Ox 11/03/17 06:00 123 H 56 H 147/74 96 11/03/17 05:54 131 H 21 11/03/17 05:53 118 H 71 H 11/03/17 05:52 132 H 23 11/03/17 05:51 136 H 76 H 11/03/17 05:50 123 H 91 L 11/03/17 05:40 106 H 20 95 11/03/17 05:30 117 H 28 H 95 11/03/17 05:20 117 H 20 95 11/03/17 05:10 118 H 15 97 11/03/17 05:00 80 16 128/52 L 97 11/03/17 04:50 98 H 22 92 L 11/03/17 04:40 80 19 94 L 11/03/17 04:30 79 17 94 L 11/03/17 04:20 106 H 19 94 L 11/03/17 04:10 119 H 25 H 94 L 11/03/17 04:00 97 H 26 H 154/90 H 95 11/03/17 03:50 110 H 22 94 L 11/03/17 03:40 105 H 26 H 94 L 11/03/17 03:30 122 H 36 H 93 L 11/03/17 03:23 138 H 43 H 11/03/17 03:21 138 H 38 H 11/03/17 03:20 137 H 35 H 91 L 11/03/17 03:10 115 H 25 H 92 L 11/03/17 03:00 121 H 22 155/98 H 94 L Intake and Output (Last 8hrs): Intake & Output 11/02/17 11/02/17 11/03/17 14:59 22:59 06:59 Intake Total 40 2462 1640 Output Total 1200 1200 Balance 40 1262 440 Intake: IV 40 1862 1640 Right Antecubital 1682 1640 Oral 600 Output: Urine 1200 1200 Urine, Voided 1200 1200 - Physical Exam Head: Positive for: Normocephalic, Other (Chronic skin lesions to left infraorbital facial area) Pupils: Positive for: PERRL Extroacular Muscles: Positive for: EOMI Conjunctiva: Positive for: Normal Ears: Positive for: Normal, NORMAL TM, Normal Canal. Negative for: Erythema, TM Bulging, Fluid Mouth: Positive for: Moist Mucous Membranes Pharnyx: Positive for: Normal. Negative for: ERYTHEMA, EXUDATE, TONSILS ENLARGED, Peritonsilar Swelling, Uvular Deviation, Muffled/Hoarse Voice, Strider , Soft Palate/Uvular Edema Nose (External): Positive for: Atraumatic Nose (Internal): Positive for: Normal Inspection Neck: Positive for: Normal Range of Motion. Negative for: Meningeal Signs, MIDLINE TENDERNESS, Paraspinal Tenderness Respiratory/Chest: Positive for: Clear to Auscultation, Good Air Exchange. Negative for: Respiratory Distress, Accessory Muscle Use Cardiovascular: Positive for: Normal S1, S2, Irregular Rhythm (Irregular, irregular), Tachycardic. Negative for: Murmurs Abdomen: Positive for: Normal Bowel Sounds. Negative for: Tenderness, Distention, Peritoneal Signs Back: Positive for: Normal Inspection. Negative for: CVA Tenderness, Midline Tenderness, Paraspinal Tenderness Upper Extremity: Positive for: Normal Inspection, Normal ROM, NORMAL PULSES, Neurovascularly Intact, Capillary Refill < 2s. Negative for: Cyanosis, Edema, Tenderness, Swelling, Erythema, Temperature Abnormalties, Deformity Lower Extremity: Positive for: Normal Inspection, NORMAL PULSES, Normal ROM, Neurovascularly Intact, Capillary Refill < 2 s. Negative for: Edema, CALF TENDERNESS, Cyanosis, Tenderness, Swelling, Erythema, Deformity, Temperature Abnormalties Neurological: Positive for: GCS=15, CN II-XII Intact, Speech Normal, Motor Func Grossly Intact, Normal Sensory Function, Normal Cerebellar Funct Skin: Positive for: Warm, Dry, Normal Color. Negative for: Rashes Psychiatric: Positive for: Alert, Oriented x 3, Normal Insight, Normal Concentration, Normal Affect, Normal Mood - Medications Active Medications: Active Medications Generic Name Dose Route Start Last Admin Trade Name Freq PRN Reason Stop Dose Admin Acetaminophen 650 mg 11/01/17 00:58 Tylenol 325mg Tab PO Q4 PRN Fever >100.4 F Aspirin 81 mg 11/01/17 07:00 11/02/17 10:40 Ecotrin PO 81 mg DAILY CHARI Administration diltiaZEM IVPB 100mg in NS 100 mls @ 5 mls/hr 10/31/17 23:05 11/03/17 02:55 Cardizem 100mg In Ns IV 10 mg/hr .Q20H PRN 10 mls/hr TITRATE PER MD ORDER Titration Protocol 5 MG/HR Heparin Sodium/Sodium Chloride 25,000 units in 250 mls @ 17.57 mls/hr 02:15 11/02/17 19:58 Heparin 08390 Units/250ml 1/2 Normal Saline IV 12 units/kg/hr .[id number] PRN 11.714 mls/hr ADJUST RATE PER PROTOCOL Administration Protocol 18 UNITS/KG/HR Meropenem 50 mls @ 100 mls/hr 11/01/17 14:00 11/03/17 05:24 Merrem Iv 1 Gm Premix IVPB 11/10/17 14:01 100 mls/hr Q8 CHARI Administration Protocol Sodium Chloride 1,000 mls @ 100 mls/hr 11/03/17 03:12 Sodium Chloride 0.9% IV .Q10H CHARI Levalbuterol HCl 0.63 mg 11/03/17 03:45 11/03/17 03:44 Xopenex IH 0.63 mg TIDRESP CHARI Administration Metoprolol Tartrate 25 mg 11/02/17 18:00 11/02/17 17:05 Lopressor PO 25 mg BID CHARI Administration Ondansetron HCl 4 mg 11/01/17 01:00 Zofran Inj IVP Q6H PRN Nausea/Vomiting Pantoprazole Sodium 40 mg 11/02/17 10:00 11/02/17 10:40 Protonix Inj IVP 40 mg DAILY CHARI Administration - Patient Studies Lab Studies: Microbiology Studies 11/01/17 03:45 MRSA Culture (Admit) - Final Naris MRSA NOT DETECTED Lab Studies 01/11/02/17 11/02/17 Range/Units 21:48 16:10 08:45 APTT 66.9 H 69.6 H 84.1 H (25.1-36.5) Seconds Laboratory Results - last 24 hr 11/02/17 11/02/17 11/02/17 08:45 16:10 21:48 APTT 84.1 H 69.6 H 66.9 H EKG/Cardiology Studies: Cardiology / EKG Studies 11/02/17 06:00 ELECTROCARDIOGRAM DAILY Comment: Reason For Exam: atrial flutter, [place] 11/03/17 02:29 EKG [ELECTROCARDIOGRAM] Stat Comment: Reason For Exam: a-flutter 11/03/17 06:00 ELECTROCARDIOGRAM DAILY Comment: Reason For Exam: atrial flutter, [place] Fingerstick Blood Sugar Results: 155 Review of Systems - Review of Systems All systems: reviewed and no additional remarkable complaints except - Constitutional Constitutional: absent: Fever, Chills - EENT Eyes: As Per HPI. absent: Blurred Vision Ears: As Per HPI. absent: Dizziness Nose/Mouth/Throat: As Per HPI. absent: Sore Throat - Cardiovascular Cardiovascular: As Per HPI, Dyspnea, Irregular Heart Rhythm, Palpitations. absent: Chest Pain, Edema, Pain Radiating to Arm/Neck/Jaw, Leg Edema, Lightheadedness, Orthopnea - Respiratory Respiratory: As Per HPI, Dyspnea. absent: Cough, Dyspnea on Exertion, Wheezing , Chest Congestion - Gastrointestinal Gastrointestinal: As Per HPI. absent: Abdominal Pain, Constipation, Cramping, Diarrhea, Nausea, Vomiting - Genitourinary Genitourinary: As Per HPI. absent: Dysuria, Hematuria, Pyuria, Nocturia - Musculoskeletal Musculoskeletal: As Par HPI. absent: Back Pain, Numbness, Tingling - Integumentary Integumentary: As Per HPI. absent: Rash - Neurological Neurological: As Per HPI. absent: Dizziness, Headaches - Psychiatric Psychiatric: As Per HPI. absent: Anxiety, Depression - Endocrine Endocrine: As Per HPI. absent: Polydipsia, Polyphagia, Polyuria - Hematologic/Lymphatic Hematologic: As Per HPI. absent: Easy Bleeding, Easy Bruising, Lymphadenopathy Critical Care Progress Note - Nutrition Nutrition: Nutrition Category Date Time Status Liquid Diet [DIET] Diets 11/02/17 Breakfast Ordered Assessment/Plan - Assessment and Plan (Free Text) Assessment: 77yo [place] female with no PMHx presented with [place] to [facility] [place] for AMS and high temp. Patient admitted to ICU for sepsis secondary to acute cholangitis secondary to choledocholithiasis. Plan: Neuro: -no acute issues -AMS resolved -CT head negative Cardio: -Rapid Aflutter -Cardizem gtt -Heparin gtt- will hold gtt 5 hours prior to procedure in AM -ASA 81mg qd -Lopressor 25mg po bid -Digoxin 0.25mg ivp qd -Echo: dilated LA, normal LV and systolic fxn, Mild apical hypokinesis, mild concentric LVH, mild MR and TR -Cardio: Dr. Alvarez consulted Pulm: -CXR: neg -Xopenex 0.63inh tid -Solumedrol 40mg ivp q12 GI: -acute cholangitis secondary to choledocholithiasis -POD#2 ERCP with stent placement -NPO after midnight for possible ERCP in AM pending cardio risk stratification -MRCP: 12mm stone in distal CBD and multiple gallstones -Abd u/s: gallstones and sludge; prominent common duct; negative Fernandez's sign -CT abd/pelvis: minimal pericholecystic fluid/edema suggesting cholecystitis; mildly dilated CBD; fatty liver, no acute solid visceral abnl; fibroid uterus; diverticulosis without CT evidence of diverticulitis -LFTs, TBili, Alk Phos trending down -Hep panel negative -tolerating CLD -GI: Dr Petersen consulted -GI: Dr Garcia consulted Renal: -no acute issues Endo: -no acute issues Heme/Onc: -no acute issues ID: -Sepsis secondary to acute cholangitis secondary to choledocholithiasis -Procal: 0.9 -Blood culture neg x 2 -Urine culture neg -MRSA neg -POD#2 ERCP with stent placement -MRCP: 12mm stone in distal CBD and multiple gallstones -Abd u/s: gallstones and sludge; prominent common duct; negative Fernandez's sign -CT abd/pelvis: minimal pericholecystic fluid/edema suggesting cholecystitis; mildly dilated CBD; fatty liver, no acute solid visceral abnl; fibroid uterus; diverticulosis without CT evidence of diverticulitis -Merrem 1gm ivpb q8 Day 3 -ID: Dr Holedn consulted Psych: -no acute issues GI ppx: Protonix 40mg ivp qd DVT ppx: Heparin gtt and SCDs Diet: CLD- NPO after midnight for possible ERCP in AM pending cardio risk stratification Fluids: NS @ 100cc/hr Discussed with Dr. Primitivo Kerr PGY2 <Kolby Langford - Last Filed: 11/03/17 11:48> CCU Objective - Vital Signs / Intake & Output Vital Signs (Last 4 hours): Vital Signs Pulse Resp BP Pulse Ox 11/03/17 10:09 100 H 134/56 L 11/03/17 09:00 109 H 19 138/64 100 11/03/17 08:50 134 H 19 96 11/03/17 08:40 120 H 20 98 11/03/17 08:30 110 H 24 96 11/03/17 08:20 134 H 23 77 L 11/03/17 08:10 127 H 32 H 87 L 11/03/17 08:00 108 H 29 H 144/76 94 L 11/03/17 07:50 103 H 22 100 Intake and Output (Last 8hrs): Intake & Output 11/02/17 11/03/17 11/03/17 22:59 06:59 14:59 Intake Total 2462 1640 70 Output Total 1200 1200 Balance 1262 440 70 Intake: IV 1862 1640 70 Right Antecubital 1682 1640 Oral 600 Output: Urine 1200 1200 Urine, Voided 1200 1200 - Medications Active Medications: Active Medications Generic Name Dose Route Start Last Admin Trade Name Freq PRN Reason Stop Dose Admin Acetaminophen 650 mg 11/01/17 00:58 Tylenol 325mg Tab PO Q4 PRN Fever >100.4 F Aspirin 81 mg 11/01/17 07:00 11/03/17 10:09 Ecotrin PO 81 mg DAILY CHARI Administration Digoxin 0.25 mg 11/03/17 14:00 Lanoxin IVP 1400 CHARI diltiaZEM IVPB 100mg in NS 100 mls @ 5 mls/hr 10/31/17 23:05 11/03/17 10:30 Cardizem 100mg In Ns IV 5 mg/hr .Q20H PRN 5 mls/hr TITRATE PER MD ORDER Titration Protocol 5 MG/HR Heparin Sodium/Sodium Chloride 25,000 units in 250 mls @ 17.57 mls/hr 02:15 11/02/17 19:58 Heparin 19407 Units/250ml 1/2 Normal Saline IV 12 units/kg/hr .[id number] PRN 11.714 mls/hr ADJUST RATE PER PROTOCOL Administration Protocol 18 UNITS/KG/HR Meropenem 50 mls @ 100 mls/hr 11/01/17 14:00 11/03/17 05:24 Merrem Iv 1 Gm Premix IVPB 11/10/17 14:01 100 mls/hr Q8 CHARI Administration Protocol Sodium Chloride 1,000 mls @ 100 mls/hr 11/03/17 03:12 11/03/17 11:00 Sodium Chloride 0.9% IV 100 mls/hr .Q10H CHARI Administration Levalbuterol HCl 0.63 mg 11/03/17 03:45 11/03/17 07:38 Xopenex IH 0.63 mg TIDRESP CHARI Administration Methylprednisolone 40 mg 11/03/17 10:15 11/03/17 10:57 Solu-Medrol IVP 40 mg Q12 CHARI Administration Metoprolol Tartrate 25 mg 11/02/17 18:00 11/03/17 10:09 Lopressor PO 25 mg BID CHARI Administration Ondansetron HCl 4 mg 11/01/17 01:00 Zofran Inj IVP Q6H PRN Nausea/Vomiting Pantoprazole Sodium 40 mg 11/02/17 10:00 11/03/17 10:09 Protonix Inj IVP 40 mg DAILY CHARI Administration - Patient Studies Lab Studies: Microbiology Studies 11/01/17 03:45 MRSA Culture (Admit) - Final Naris MRSA NOT DETECTED Lab Studies 11/03/17 11/03/17 11/03/17 Range/Units 10:30 05:48 05:48 WBC (4.5-11.0) 10^3/ul RBC (3.5-6.1) 10^6/uL Hgb (12.0-16.0) g/dL Hct (36.0-48.0) % MCV (80.0-105.0) fl MCH (25.0-35.0) pg MCHC (31.0-37.0) g/dl RDW (11.5-14.5) % Plt Count (120.0-450.0) 10^3/uL MPV (7.0-11.0) fl Gran % (50.0-68.0) % Lymph % (Auto) (22.0-35.0) % [place] % (Auto) (1.0-6.0) % Eos % (Auto) (1.5-5.0) % Baso % (Auto) (0.0-3.0) % Gran # (1.4-6.5) Lymph # (1.2-3.4) [place] # (0.1-0.6) Eos # (0.0-0.7) Baso # (0.0-2.0) K/mm3 APTT 65.8 H (25.1-36.5) Seconds Sodium 136 (132-148) mmol/L Potassium 4.2 (3.6-5.0) mmol/L Chloride 102 (98-107) mmol/L Carbon Dioxide 24 (21-33) mmol/L Anion Gap 14 (10-20) BUN 9 (7-21) mg/dL Creatinine 0.6 L (0.7-1.2) mg/dl Est GFR ( Amer) > 60 Est GFR (Non-Af Amer) > 60 Random Glucose 122 H (70-110) mg/dL Calcium 8.9 (8.4-10.5) mg/dL Total Bilirubin 1.2 (0.2-1.3) mg/dL AST 67 H D (14-36) U/L ALT 151 H (7-56) U/L Alkaline Phosphatase 252 H (38-126) U/L Total Protein 7.0 (5.8-8.3) g/dL Albumin 3.3 (3.0-4.8) g/dL Globulin 3.7 gm/dL Albumin/Globulin Ratio 0.9 L (1.1-1.8) Digoxin < 0.4 L (0.8-2.0) ng/mL Hepatitis A IgM Ab (NEGATIVE) Hep Bs Antigen (NEGATIVE) Hep B Core IgM Ab (NEGATIVE) Hepatitis C Antibody (NEGATIVE) 11/03/17 11/02/17 11/02/17 Range/Units 05:48 21:48 16:10 WBC 7.1 (4.5-11.0) 10^3/ul RBC 4.29 (3.5-6.1) 10^6/uL Hgb 12.5 (12.0-16.0) g/dL Hct 37.7 (36.0-48.0) % MCV 87.9 (80.0-105.0) fl MCH 29.1 (25.0-35.0) pg MCHC 33.2 (31.0-37.0) g/dl RDW 14.6 H (11.5-14.5) % Plt Count 236 (120.0-450.0) 10^3/uL MPV 10.5 (7.0-11.0) fl Gran % 84.8 H (50.0-68.0) % Lymph % (Auto) 9.3 L (22.0-35.0) % [place] % (Auto) 5.8 (1.0-6.0) % Eos % (Auto) 0.0 L (1.5-5.0) % Baso % (Auto) 0.1 (0.0-3.0) % Gran # 6.05 (1.4-6.5) Lymph # 0.7 L (1.2-3.4) [place] # 0.4 (0.1-0.6) Eos # 0.0 (0.0-0.7) Baso # 0.01 (0.0-2.0) K/mm3 APTT 66.9 H 69.6 H (25.1-36.5) Seconds Sodium (132-148) mmol/L Potassium (3.6-5.0) mmol/L Chloride (98-107) mmol/L Carbon Dioxide (21-33) mmol/L Anion Gap (10-20) BUN (7-21) mg/dL Creatinine (0.7-1.2) mg/dl Est GFR ( Amer) Est GFR (Non-Af Amer) Random Glucose (70-110) mg/dL Calcium (8.4-10.5) mg/dL Total Bilirubin (0.2-1.3) mg/dL AST (14-36) U/L ALT (7-56) U/L Alkaline Phosphatase (38-126) U/L Total Protein (5.8-8.3) g/dL Albumin (3.0-4.8) g/dL Globulin gm/dL Albumin/Globulin Ratio (1.1-1.8) Digoxin (0.8-2.0) ng/mL Hepatitis A IgM Ab (NEGATIVE) Hep Bs Antigen (NEGATIVE) Hep B Core IgM Ab (NEGATIVE) Hepatitis C Antibody (NEGATIVE) 11/01/17 Range/Units 05:00 WBC (4.5-11.0) 10^3/ul RBC (3.5-6.1) 10^6/uL Hgb (12.0-16.0) g/dL Hct (36.0-48.0) % MCV (80.0-105.0) fl MCH (25.0-35.0) pg MCHC (31.0-37.0) g/dl RDW (11.5-14.5) % Plt Count (120.0-450.0) 10^3/uL MPV (7.0-11.0) fl Gran % (50.0-68.0) % Lymph % (Auto) (22.0-35.0) % [place] % (Auto) (1.0-6.0) % Eos % (Auto) (1.5-5.0) % Baso % (Auto) (0.0-3.0) % Gran # (1.4-6.5) Lymph # (1.2-3.4) [place] # (0.1-0.6) Eos # (0.0-0.7) Baso # (0.0-2.0) K/mm3 APTT (25.1-36.5) Seconds Sodium (132-148) mmol/L Potassium (3.6-5.0) mmol/L Chloride (98-107) mmol/L Carbon Dioxide (21-33) mmol/L Anion Gap (10-20) BUN (7-21) mg/dL Creatinine (0.7-1.2) mg/dl Est GFR ( Amer) Est GFR (Non-Af Amer) Random Glucose (70-110) mg/dL Calcium (8.4-10.5) mg/dL Total Bilirubin (0.2-1.3) mg/dL AST (14-36) U/L ALT (7-56) U/L Alkaline Phosphatase (38-126) U/L Total Protein (5.8-8.3) g/dL Albumin (3.0-4.8) g/dL Globulin gm/dL Albumin/Globulin Ratio (1.1-1.8) Digoxin (0.8-2.0) ng/mL Hepatitis A IgM Ab Negative (NEGATIVE) Hep Bs Antigen Negative (NEGATIVE) Hep B Core IgM Ab Negative (NEGATIVE) Hepatitis C Antibody Negative (NEGATIVE) Laboratory Results - last 24 hr 11/01/17 11/02/17 11/02/17 05:00 16:10 21:48 WBC RBC Hgb Hct MCV MCH MCHC RDW Plt Count MPV Gran % Lymph % (Auto) [place] % (Auto) Eos % (Auto) Baso % (Auto) Gran # Lymph # [place] # Eos # Baso # APTT 69.6 H 66.9 H Sodium Potassium Chloride Carbon Dioxide Anion Gap BUN Creatinine Est GFR ( Amer) Est GFR (Non-Af Amer) Random Glucose Calcium Total Bilirubin AST ALT Alkaline Phosphatase Total Protein Albumin Globulin Albumin/Globulin Ratio Digoxin Hepatitis A IgM Ab Negative Hep Bs Antigen Negative Hep B Core IgM Ab Negative Hepatitis C Antibody Negative 11/03/17 11/03/17 11/03/17 05:48 05:48 05:48 WBC 7.1 RBC 4.29 Hgb 12.5 Hct 37.7 MCV 87.9 MCH 29.1 MCHC 33.2 RDW 14.6 H Plt Count 236 MPV 10.5 Gran % 84.8 H Lymph % (Auto) 9.3 L [place] % (Auto) 5.8 Eos % (Auto) 0.0 L Baso % (Auto) 0.1 Gran # 6.05 Lymph # 0.7 L [place] # 0.4 Eos # 0.0 Baso # 0.01 APTT 65.8 H Sodium 136 Potassium 4.2 Chloride 102 Carbon Dioxide 24 Anion Gap 14 BUN 9 Creatinine 0.6 L Est GFR ( Amer) > 60 Est GFR (Non-Af Amer) > 60 Random Glucose 122 H Calcium 8.9 Total Bilirubin 1.2 AST 67 H D ALT 151 H Alkaline Phosphatase 252 H Total Protein 7.0 Albumin 3.3 Globulin 3.7 Albumin/Globulin Ratio 0.9 L Digoxin Hepatitis A IgM Ab Hep Bs Antigen Hep B Core IgM Ab Hepatitis C Antibody 11/03/17 10:30 WBC RBC Hgb Hct MCV MCH MCHC RDW Plt Count MPV Gran % Lymph % (Auto) [place] % (Auto) Eos % (Auto) Baso % (Auto) Gran # Lymph # [place] # Eos # Baso # APTT Sodium Potassium Chloride Carbon Dioxide Anion Gap BUN Creatinine Est GFR ( Amer) Est GFR (Non-Af Amer) Random Glucose Calcium Total Bilirubin AST ALT Alkaline Phosphatase Total Protein Albumin Globulin Albumin/Globulin Ratio Digoxin < 0.4 L Hepatitis A IgM Ab Hep Bs Antigen Hep B Core IgM Ab Hepatitis C Antibody EKG/Cardiology Studies: Cardiology / EKG Studies 11/03/17 02:29 EKG [ELECTROCARDIOGRAM] Stat Comment: Reason For Exam: a-flutter 11/03/17 06:00 ELECTROCARDIOGRAM DAILY Comment: Reason For Exam: atrial flutter, [place] Critical Care Progress Note - Nutrition Nutrition: Nutrition Category Date Time Status Liquid Diet [DIET] Diets 11/02/17 Breakfast Ordered NPO Diet [DIET] Diets 11/04/17 Breakfast Ordered Assessment/Plan - Assessment and Plan (Free Text) Plan: Patient seen and examined with resident on rounds, agree with note with following additions/exceptions: Patient is 77yo female without significant PMHx presented with severe sepsis 2/ 2 ascending cholangitis,cholecystitis s/p ERCP with stent placement, off pressors, on broad spectrum antibiotics. Currently afebrile, HD stable, comfortable in Afib HR 110s, on cardizem drip, heparin drip. Cardiology, GI, ID and surgery following. Reports no abdominal pain. LFTs and TBili, downtrending. Severe Sepsis Cholangitis/Cholecystitis Dehydration Abnormal LFTs New onset Afib Recommend: - supp o2 as needed - Antibiotics as per ID, Merropenem - Follow up cultures - Rate control, heparin drip - follow up cardiology, monitor electrolytes - NPO - follow up GI, ?repeat ERCP - follow up surgery - IVF hydration - ECHO - monitor LFTs, Tbili - GI ppx - DVT ppx critical care time 35 minutes
[2017-11-03 07:38] LABS: ALB/GLOB RATIO 0.9 (1.1-1.8); ALBUMIN 3.3 g/dL (3.0-4.8); ALT/SGPT 151 U/L (7-56); AST/SGOT 67 U/L (14-36); BLOOD UREA NITROGEN 9 mg/dL (7-21); CALCIUM 8.9 mg/dL (8.4-10.5); GFR AFRICAN-AMERICAN > 60; GFR NON-AFRICAN AMERICAN > 60
[2017-11-03 07:51] LABS: BASO # 0.01 K/mm3 (0.0-2.0); BASO % 0.1 % (0.0-3.0); GRAN # 6.05 (1.4-6.5); GRAN % 84.8 % (50.0-68.0); HEMOGLOBIN 12.5 g/dL (12.0-16.0); LYMPH # 0.7 (1.2-3.4); LYMPH % 9.3 % (22.0-35.0); MEAN CELL VOLUME 87.9 fl (80.0-105.0); MEAN CORPUSCULAR HEMOGLOBIN 29.1 pg (25.0-35.0); MEAN CORPUSCULAR HGB CONC 33.2 g/dl (31.0-37.0); MEAN PLATELET VOLUME 10.5 fl (7.0-11.0); MONO # 0.4 (0.1-0.6); MONO % 5.8 % (1.0-6.0); RBC 4.29 10^6/uL (3.5-6.1); RED CELL DISTRIBUTION WIDTH 14.6 % (11.5-14.5); WHITE BLOOD COUNT 7.1 10^3/ul (4.5-11.0)
--- NOTE | 2017-11-03 07:52 | CP.PCM.PN ---
<Joni Gonzalez - Last Filed: 11/03/17 10:36> Subjective - Date & Time of Evaluation Date of Evaluation: 11/03/17 Time of Evaluation: 07:00 - Subjective Subjective: GI Progress note: Patient seen and examined at bedside. No acute events overnight. Pt is korean speaking and daughter at bedside translating. Pt denies any abdominal pain, fevers, or chills, n/v/d at this time. No complaints. 12 point review of systems performed, negative other than stated above. Objective - Vital Signs/Intake and Output Vital Signs (last 24 hours): Temp Pulse Resp BP Pulse Ox 98.0 F 123 H 56 H 147/74 96 11/03/17 00:01 11/03/17 06:00 11/03/17 06:00 11/03/17 06:00 11/03/17 06:00 Intake and Output: 11/03/17 11/03/17 06:59 18:59 Intake Total 1820 Output Total 1200 Balance 620 - Medications Medications: Current Medications Acetaminophen (Tylenol 325mg Tab) 650 mg PO Q4 PRN PRN Reason: Fever >100.4 F Aspirin (Ecotrin) 81 mg PO DAILY [facility] Last Admin: 11/02/17 10:40 Dose: 81 mg diltiaZEM IVPB 100mg in NS (Cardizem 100mg In Ns) 100 mls @ 5 mls/hr IV .Q20H PRN; Protocol; 5 MG/HR PRN Reason: TITRATE PER MD ORDER Last Titration: 11/03/17 02:55 Dose: 10 mg/hr, 10 mls/hr Heparin Sodium/Sodium Chloride (Heparin 05963 Units/250ml 1/2 Normal Saline) 25 ,000 units in 250 mls @ 17.57 mls/hr IV .[id number] PRN; Protocol; 18 UNITS/KG/HR PRN Reason: ADJUST RATE PER PROTOCOL Last Admin: 11/02/17 19:58 Dose: 12 units/kg/hr, 11.714 mls/hr Meropenem (Merrem Iv 1 Gm Premix) 50 mls @ 100 mls/hr IVPB Q8 [facility]I PRN Reason: Protocol Stop: 11/10/17 14:01 Last Admin: 11/03/17 05:24 Dose: 100 mls/hr Sodium Chloride (Sodium Chloride 0.9%) 1,000 mls @ 100 mls/hr IV .Q10H [facility] Levalbuterol HCl (Xopenex) 0.63 mg IH TIDRESP [facility] Last Admin: 11/03/17 07:38 Dose: 0.63 mg Metoprolol Tartrate (Lopressor) 25 mg PO BID [facility] Last Admin: 11/02/17 17:05 Dose: 25 mg Ondansetron HCl (Zofran Inj) 4 mg IVP Q6H PRN PRN Reason: Nausea/Vomiting Pantoprazole Sodium (Protonix Inj) 40 mg IVP DAILY [facility] Last Admin: 11/02/17 10:40 Dose: 40 mg - Labs Labs: 11/02/17 04:30 11/03/17 05:48 PT 13.9 SECONDS (9.4-12.5) H 10/31/17 21:22 INR 1.21 (0.93-1.08) H 10/31/17 21:22 APTT 65.8 Seconds (25.1-36.5) H 11/03/17 05:48 - Constitutional Appears: No Acute Distress - Head Exam Head Exam: ATRAUMATIC, NORMOCEPHALIC - Eye Exam Eye Exam: EOMI, PERRL - ENT Exam ENT Exam: Mucous Membranes Moist - Respiratory Exam Respiratory Exam: Clear to Ausculation Bilateral. absent: Rales, Wheezes - Cardiovascular Exam Cardiovascular Exam: REGULAR RHYTHM, RRR, +S1, +S2 - GI/Abdominal Exam GI & Abdominal Exam: Soft, Normal Bowel Sounds. absent: Distended, Tenderness - Extremities Exam Extremities Exam: absent: Calf Tenderness, Pedal Edema - Neurological Exam Neurological Exam: Alert, Awake, Oriented x3 - Psychiatric Exam Psychiatric exam: Normal Affect, Normal Mood - Skin Skin Exam: Dry, Intact, Warm Assessment and Plan - Assessment and Plan (Free Text) Assessment: 77 F with pmh of HTN and obesity presents with abd pain, fevers, jaundice and confusion x 1 day, found to have acute cholangitis, choledocholithiasis s/p ERCP with stent placement POD 2. - Full liquid diet as tolerated - continue to monitor LFTs - trending down - Continue with antibiotic therapy - Ingrid - Blood cultures negative thus far - Follow up surgical regarding cholecystectomy - F/u cardiology recs regarding A flutter and anticoagulation clearance for repeat ERCP for stent removal and stone extraction - Will continue to monitor patient clinical course Pt was seen and plan reviewed in detail with Dr Ruth. <Milind Ruth - Last Filed: 11/03/17 11:53> Objective - Vital Signs/Intake and Output Vital Signs (last 24 hours): Temp Pulse Resp BP Pulse Ox 98.0 F 100 H 19 134/56 L 100 11/03/17 00:01 11/03/17 10:09 11/03/17 09:00 11/03/17 10:09 11/03/17 09:00 Intake and Output: 11/03/17 11/03/17 06:59 18:59 Intake Total 1820 70 Output Total 1200 Balance 620 70 - Medications Medications: Current Medications Acetaminophen (Tylenol 325mg Tab) 650 mg PO Q4 PRN PRN Reason: Fever >100.4 F Aspirin (Ecotrin) 81 mg PO DAILY [facility] Last Admin: 11/03/17 10:09 Dose: 81 mg Digoxin (Lanoxin) 0.25 mg IVP 1400 CHARI diltiaZEM IVPB 100mg in NS (Cardizem 100mg In Ns) 100 mls @ 5 mls/hr IV .Q20H PRN; Protocol; 5 MG/HR PRN Reason: TITRATE PER MD ORDER Last Titration: 11/03/17 10:30 Dose: 5 mg/hr, 5 mls/hr Heparin Sodium/Sodium Chloride (Heparin 43879 Units/250ml 1/2 Normal Saline) 25 ,000 units in 250 mls @ 17.57 mls/hr IV .[id number] PRN; Protocol; 18 UNITS/KG/HR PRN Reason: ADJUST RATE PER PROTOCOL Last Admin: 11/02/17 19:58 Dose: 12 units/kg/hr, 11.714 mls/hr Meropenem (Merrem Iv 1 Gm Premix) 50 mls @ 100 mls/hr IVPB Q8 [facility]I PRN Reason: Protocol Stop: 11/10/17 14:01 Last Admin: 11/03/17 05:24 Dose: 100 mls/hr Sodium Chloride (Sodium Chloride 0.9%) 1,000 mls @ 100 mls/hr IV .Q10H [facility] Last Admin: 11/03/17 11:00 Dose: 100 mls/hr Levalbuterol HCl (Xopenex) 0.63 mg IH TIDRESP [facility] Last Admin: 11/03/17 07:38 Dose: 0.63 mg Methylprednisolone (Solu-Medrol) 40 mg IVP Q12 [facility] Last Admin: 11/03/17 10:57 Dose: 40 mg Metoprolol Tartrate (Lopressor) 25 mg PO BID [facility] Last Admin: 11/03/17 10:09 Dose: 25 mg Ondansetron HCl (Zofran Inj) 4 mg IVP Q6H PRN PRN Reason: Nausea/Vomiting Pantoprazole Sodium (Protonix Inj) 40 mg IVP DAILY [facility] Last Admin: 11/03/17 10:09 Dose: 40 mg - Labs Labs: 11/03/17 05:48 11/03/17 05:48 PT 13.9 SECONDS (9.4-12.5) H 10/31/17 21:22 INR 1.21 (0.93-1.08) H 10/31/17 21:22 APTT 65.8 Seconds (25.1-36.5) H 11/03/17 05:48 Attending/Attestation - Attestation I have personally seen and examined this patient.: Yes I have fully participated in the care of the patient.: Yes I have reviewed all pertinent clinical information, including history, physical exam and plan: Yes Notes (Text): 11/03/17 11:48 I have seen and examined patient with GI fellow and medical biller. No acute events overnight, she is seen resting in bed comfortably. She denies abdominal pain, nausea, vomiting, fever/chills. Tolerating PO liquids without difficulty. Review of vitals from today shows tachycardia, atrial flutter. HTN Obesity Acute cholangitis, choledocholithiasis s/p ERCP with biliary stent placement - Liquid diet as tolerated - LFTs continue to trend down, monitor - Follow up blood culture results - Continue with antibiotic therapy - Follow up surgical recommendations regarding timing of cholecystectomy - Case discussed with Dr. Alvarez (cardiology) regarding need to perform repeat ERCP with stone extraction +/- sphincterotomy. He has provided cardiac clearance to proceed with procedure, will begin patient on cardizem for more optimal rate control and can hold heparin drip for 3-4 hours prior to procedure. Following procedure will discuss regarding timing of reinitiating anticoagulation therapy. - Obtain INR - NPO after midnight
--- NOTE | 2017-11-03 08:17 | CP.PCM.PN ---
Subjective - Date & Time of Evaluation Date of Evaluation: 11/03/17 Time of Evaluation: 07:00 - Subjective Subjective: Stable in CCU. On card drip with A. Flutter, mod VR. No CP or SOB reported. V/S note. A. Flutter PE: Lungs: few rhonchi Cor.: irreg, S1S2 Abd.: soft Ext.: no edema Neuro.: alert I/O= 4142/2400 Labs noted. PTT = 66. BC x2 NG at 24 hrs. ECG: A. Flut at 127 BPM, NSSTW chnages Objective - Vital Signs/Intake and Output Vital Signs (last 24 hours): Temp Pulse Resp BP Pulse Ox 98.0 F 123 H 56 H 147/74 96 11/03/17 00:01 11/03/17 06:00 11/03/17 06:00 11/03/17 06:00 11/03/17 06:00 Intake and Output: 11/03/17 11/03/17 06:59 18:59 Intake Total 1820 Output Total 1200 Balance 620 - Medications Medications: Current Medications Acetaminophen (Tylenol 325mg Tab) 650 mg PO Q4 PRN PRN Reason: Fever >100.4 F Aspirin (Ecotrin) 81 mg PO DAILY [facility] Last Admin: 11/02/17 10:40 Dose: 81 mg diltiaZEM IVPB 100mg in NS (Cardizem 100mg In Ns) 100 mls @ 5 mls/hr IV .Q20H PRN; Protocol; 5 MG/HR PRN Reason: TITRATE PER MD ORDER Last Titration: 11/03/17 02:55 Dose: 10 mg/hr, 10 mls/hr Heparin Sodium/Sodium Chloride (Heparin 60915 Units/250ml 1/2 Normal Saline) 25 ,000 units in 250 mls @ 17.57 mls/hr IV .[id number] PRN; Protocol; 18 UNITS/KG/HR PRN Reason: ADJUST RATE PER PROTOCOL Last Admin: 11/02/17 19:58 Dose: 12 units/kg/hr, 11.714 mls/hr Meropenem (Merrem Iv 1 Gm Premix) 50 mls @ 100 mls/hr IVPB Q8 [facility] PRN Reason: Protocol Stop: 11/10/17 14:01 Last Admin: 11/03/17 05:24 Dose: 100 mls/hr Sodium Chloride (Sodium Chloride 0.9%) 1,000 mls @ 100 mls/hr IV .Q10H [facility] Levalbuterol HCl (Xopenex) 0.63 mg IH TIDRESP [facility] Last Admin: 11/03/17 07:38 Dose: 0.63 mg Metoprolol Tartrate (Lopressor) 25 mg PO BID [facility] Last Admin: 11/02/17 17:05 Dose: 25 mg Ondansetron HCl (Zofran Inj) 4 mg IVP Q6H PRN PRN Reason: Nausea/Vomiting Pantoprazole Sodium (Protonix Inj) 40 mg IVP DAILY [facility] Last Admin: 11/02/17 10:40 Dose: 40 mg - Labs Labs: 11/03/17 05:48 11/03/17 05:48 PT 13.9 SECONDS (9.4-12.5) H 10/31/17 21:22 INR 1.21 (0.93-1.08) H 10/31/17 21:22 APTT 65.8 Seconds (25.1-36.5) H 11/03/17 05:48 Assessment and Plan - Assessment and Plan (Free Text) Assessment: Multiple GI sxs with fever, jaundice AMS Gall Stones/Acute Cholecystitis Sepsis S/P biliary stent Mildly + troponon level/doubt acute MO A. Flutter Plan: Continue IV heparin and diltiazem. Rate control. As per GI and surgery Echocardiogram AB. As per ID Monitor: labs, I/O, sats., cultures, LFT's, PTT's etc. Will follow.
--- NOTE | 2017-11-03 09:28 | CP.PCM.PN ---
<ParagHugh - Last Filed: 11/03/17 15:10> Subjective - Date & Time of Evaluation Date of Evaluation: 11/03/17 Time of Evaluation: 07:05 - Subjective Subjective: Surgery Progress note. Dr. Saleh Pt seen and examined at bedside. No N/V/D. No F/C. Tolerating CLD. Does report some shortness of breath that started last night at 8PM and persisted throughout the night, was found to be in A.Fib rvr and on diltiazem drip and heparin ggt. Objective - Vital Signs/Intake and Output Vital Signs (last 24 hours): Temp Pulse Resp BP Pulse Ox 98.0 F 109 H 19 138/64 100 11/03/17 00:01 11/03/17 09:00 11/03/17 09:00 11/03/17 09:00 11/03/17 09:00 Intake and Output: 11/03/17 11/03/17 06:59 18:59 Intake Total 1820 Output Total 1200 Balance 620 - Medications Medications: Current Medications Acetaminophen (Tylenol 325mg Tab) 650 mg PO Q4 PRN PRN Reason: Fever >100.4 F Aspirin (Ecotrin) 81 mg PO DAILY [facility] Last Admin: 11/02/17 10:40 Dose: 81 mg diltiaZEM IVPB 100mg in NS (Cardizem 100mg In Ns) 100 mls @ 5 mls/hr IV .Q20H PRN; Protocol; 5 MG/HR PRN Reason: TITRATE PER MD ORDER Last Titration: 11/03/17 02:55 Dose: 10 mg/hr, 10 mls/hr Heparin Sodium/Sodium Chloride (Heparin 01622 Units/250ml 1/2 Normal Saline) 25 ,000 units in 250 mls @ 17.57 mls/hr IV .[id number] PRN; Protocol; 18 UNITS/KG/HR PRN Reason: ADJUST RATE PER PROTOCOL Last Admin: 11/02/17 19:58 Dose: 12 units/kg/hr, 11.714 mls/hr Meropenem (Merrem Iv 1 Gm Premix) 50 mls @ 100 mls/hr IVPB Q8 [facility]I PRN Reason: Protocol Stop: 11/10/17 14:01 Last Admin: 11/03/17 05:24 Dose: 100 mls/hr Sodium Chloride (Sodium Chloride 0.9%) 1,000 mls @ 100 mls/hr IV .Q10H [facility] Levalbuterol HCl (Xopenex) 0.63 mg IH TIDRESP [facility] Last Admin: 11/03/17 07:38 Dose: 0.63 mg Metoprolol Tartrate (Lopressor) 25 mg PO BID [facility] Last Admin: 11/02/17 17:05 Dose: 25 mg Ondansetron HCl (Zofran Inj) 4 mg IVP Q6H PRN PRN Reason: Nausea/Vomiting Pantoprazole Sodium (Protonix Inj) 40 mg IVP DAILY [facility] Last Admin: 11/02/17 10:40 Dose: 40 mg - Labs Labs: 11/03/17 05:48 11/03/17 05:48 PT 13.9 SECONDS (9.4-12.5) H 10/31/17 21:22 INR 1.21 (0.93-1.08) H 10/31/17 21:22 APTT 65.8 Seconds (25.1-36.5) H 11/03/17 05:48 - Constitutional Appears: Non-toxic, No Acute Distress - Head Exam Head Exam: ATRAUMATIC, NORMAL INSPECTION, NORMOCEPHALIC - Eye Exam Eye Exam: EOMI - ENT Exam ENT Exam: Mucous Membranes Moist - Respiratory Exam Respiratory Exam: NORMAL BREATHING PATTERN. absent: Accessory Muscle Use, Respiratory Distress - GI/Abdominal Exam GI & Abdominal Exam: Soft. absent: Distended, Firm, Guarding, Rigid, Tenderness - Extremities Exam Extremities Exam: Normal Inspection. absent: Calf Tenderness - Neurological Exam Neurological Exam: Alert, Awake, Oriented x3 - Psychiatric Exam Psychiatric exam: Normal Affect, Normal Mood - Skin Skin Exam: Dry, Intact, Normal Color, Warm Assessment and Plan - Assessment and Plan (Free Text) Assessment: 77yo F w/ ascending cholangitis secondary to choledocholithiasis s/p ERCP with stent placement; retained stone - LFTs improving - f/u Cardiology recommendations. Will need cardiac clearance prior to any surgical intervention - f/u GI plans for repeat ERCP; will coordinate timing of cholecystectomy once we discuss with them - Diet recs as per GI - Abx as per ID Further recs as per Dr. Therese Tuttle PGY1 surgery pager: [phone] <Nathen Saleh B - Last Filed: 11/08/17 21:01> Objective - Vital Signs/Intake and Output Vital Signs (last 24 hours): Temp Pulse Resp BP Pulse Ox 97.9 F 85 27 H 132/64 92 L 11/08/17 12:00 11/08/17 14:20 11/08/17 14:20 11/08/17 13:00 11/08/17 14:20 Intake and Output: 11/08/17 11/09/17 18:59 06:59 Intake Total 120 Balance 120 - Labs Labs: 11/08/17 05:30 11/08/17 05:30 PT 11.3 SECONDS (9.4-12.5) 11/05/17 06:30 INR 0.98 (0.93-1.08) 11/05/17 06:30 APTT 58.5 Seconds (25.1-36.5) H 11/08/17 09:20 Attending/Attestation - Attestation I have personally seen and examined this patient.: Yes I have fully participated in the care of the patient.: Yes I have reviewed all pertinent clinical information, including history, physical exam and plan: Yes Notes (Text): Pt was seen and examined at bedside Agree with above note and assessment Repeat ERCP tomorrow for stone removal C.w current mx Plan d.w pt's daughter in detail
[2017-11-03 10:03] LABS: HEPATITIS B SURFACE AG NEGATIVE (NEGATIVE)
[2017-11-03 10:08] LABS: HEPATITIS A IGM NEGATIVE (NEGATIVE); HEPATITIS B CORE AB Negative (NEGATIVE)
[2017-11-03] MEDS ORDERED: Digoxin 500 mcg/2ml (0.5 mg/2ml) Inj IVP STA (10:13)
[2017-11-03 10:20] LABS: HEPATITIS C ANTIBODY Negative (NEGATIVE)
--- NOTE | 2017-11-03 10:23 | CARD ---
APPROVED REPORT EKG Measurement Heart [id number] <Conclusion> Atrial fibrillation with rapid ventricular response Nonspecific ST abnormality Prolonged QTc
[2017-11-03] MEDS: diltiaZEM IVPB 100mg in NS 100 ML IV PRN (10:26)
--- NOTE | 2017-11-03 10:28 | CARD ---
APPROVED REPORT EKG Measurement Heart [id number] <Conclusion> Atrial fibrillation with rapid ventricular response NSSTW changes No change
[2017-11-03] MEDS: MethylPREDNISolone 40 mg Vial IVP SCH ×2 (10:57→21:22)
[2017-11-03 13:10] LABS: INR 1.05 (0.93-1.08); PROTHROMBIN TIME 12.1 SECONDS (9.4-12.5)
--- NOTE | 2017-11-03 14:01 | PN ---
DATE: 11/03/2017 SUBJECTIVE: The patient is in bed, in no acute distress, nontoxic. PHYSICAL EXAMINATION: VITAL SIGNS: Temperature is 98, blood pressure is 130/60, respiratory rate of 18. HEENT: Unremarkable. NECK: Supple. LUNGS: Have decreased breath sounds. HEART: Normal S1 and S2. ABDOMEN: Soft, nontender. No rebound or guarding. Review of the medications reveal the patient to be on meropenem. LABORATORY EXAMINATION Reveals the white count is down to 7.1, hemoglobin of 12, and platelets of 236. Chemistries reveal a BUN of 9, creatinine of 0.6. The LFTs are improving. The alkaline phosphatase is improving and procalcitonin is 0.9 and urinalysis is noted. Hepatitis profile is negative. Blood cultures have no growth and nares MRSA is not detected. Urine cultures are negative and Dr. Tuttle's note is reviewed and Dr. Alvarez's note is reviewed. 's note is reviewed. ASSESSMENT AND PLAN: A 77-year-old female seen in [facility], bed 2, Coronary Care Unit, [place]an-speaking female with history of obesity, body mass index of 31, who was found to have severe sepsis secondary to ascending cholangitis, status post endoscopic retrograde cholangiopancreatography and biliary stent placement by Dr. Garcia, currently on meropenem, awaiting for further intervention with GI and surgical team. We will continue meropenem at this time. The patient appears to be improving. The patient is also on Solu-Medrol. Price Holden MD
[2017-11-03] MEDS: Digoxin 500 mcg/2ml (0.5 mg/2ml) Inj IVP SCH (14:22)
[2017-11-03] MEDS: Heparin25000 units/250ml 1/2NS 25,000 UNITS/250 ML BAG IV PRN (16:44)
--- NOTE | 2017-11-03 17:00 | CARD ---
APPROVED REPORT EKG Measurement Heart [id number] <Conclusion> Atrial flutter with variable AV block Possible Inferior infarct, age undetermined ST & T wave abnormality, consider lateral ischemia Abnormal ECG
--- NOTE | 2017-11-03 20:25 | CP.PCM.PN ---
<Raiza Purdy - Last Filed: 11/03/17 20:20> Subjective - Date & Time of Evaluation Date of Evaluation: 11/03/17 Time of Evaluation: 07:30 - Subjective Subjective: Raiza Purdy DO PGY1 - Internal Medicine Progress Note Patient seen and examined at bedside. Nurse reports no acute events overnight. Patient complaining of shortness of breath since last night. Denies chest pain. Admits to productive cough, but has not expectorated anything. Denies nausea, vomiting, diarrhea, constipation, fever, chills. Patient's friend at bedside acting as watch adjuster. Objective - Vital Signs/Intake and Output Vital Signs (last 24 hours): Temp Pulse Resp BP Pulse Ox 98.0 F 100 H 20 171/98 H 98 11/03/17 00:01 11/03/17 17:44 11/03/17 17:40 11/03/17 17:44 11/03/17 17:40 Intake and Output: 11/03/17 11/04/17 18:59 06:59 Intake Total 881 Output Total 6100 Balance -5219 - Medications Medications: Current Medications Acetaminophen (Tylenol 325mg Tab) 650 mg PO Q4 PRN PRN Reason: Fever >100.4 F Aspirin (Ecotrin) 81 mg PO DAILY [facility] Last Admin: 11/03/17 10:09 Dose: 81 mg Digoxin (Lanoxin) 0.25 mg IVP 1400 [facility] Last Admin: 11/03/17 14:22 Dose: 0.25 mg diltiaZEM IVPB 100mg in NS (Cardizem 100mg In Ns) 100 mls @ 5 mls/hr IV .Q20H PRN; Protocol; 5 MG/HR PRN Reason: TITRATE PER MD ORDER Last Titration: 11/03/17 15:36 Dose: 2 mg/hr, 2 mls/hr Heparin Sodium/Sodium Chloride (Heparin 84148 Units/250ml 1/2 Normal Saline) 25 ,000 units in 250 mls @ 17.57 mls/hr IV .[id number] PRN; Protocol; 18 UNITS/KG/HR PRN Reason: ADJUST RATE PER PROTOCOL Last Admin: 11/03/17 16:44 Dose: 12 units/kg/hr, 11.714 mls/hr Meropenem (Merrem Iv 1 Gm Premix) 50 mls @ 100 mls/hr IVPB Q8 [facility] PRN Reason: Protocol Stop: 11/10/17 14:01 Last Admin: 11/03/17 13:02 Dose: 100 mls/hr Levalbuterol HCl (Xopenex) 0.63 mg IH TIDRESP [facility] Last Admin: 11/03/17 19:57 Dose: 0.63 mg Methylprednisolone (Solu-Medrol) 40 mg IVP Q12 [facility] Last Admin: 11/03/17 10:57 Dose: 40 mg Metoprolol Tartrate (Lopressor) 25 mg PO BID [facility] Last Admin: 11/03/17 17:44 Dose: 25 mg Ondansetron HCl (Zofran Inj) 4 mg IVP Q6H PRN PRN Reason: Nausea/Vomiting Pantoprazole Sodium (Protonix Inj) 40 mg IVP DAILY [facility] Last Admin: 11/03/17 10:09 Dose: 40 mg - Labs Labs: 11/03/17 05:48 11/03/17 05:48 PT 12.1 SECONDS (9.4-12.5) 11/03/17 12:30 INR 1.05 (0.93-1.08) 11/03/17 12:30 APTT 65.8 Seconds (25.1-36.5) H 11/03/17 05:48 - Constitutional Appears: Non-toxic, No Acute Distress - Head Exam Head Exam: ATRAUMATIC, NORMOCEPHALIC - Eye Exam Eye Exam: EOMI, Normal appearance. absent: Scleral icterus - ENT Exam ENT Exam: Mucous Membranes Moist - Respiratory Exam Respiratory Exam: Rhonchi (faint), Wheezes, NORMAL BREATHING PATTERN - Cardiovascular Exam Cardiovascular Exam: Tachycardia, Irregular Rhythm, +S1, +S2 - GI/Abdominal Exam GI & Abdominal Exam: Soft, Normal Bowel Sounds. absent: Guarding, Rigid, Tenderness, Organomegaly - Extremities Exam Extremities Exam: absent: Calf Tenderness, Pedal Edema - Neurological Exam Neurological Exam: Alert, Awake, Oriented x3 - Psychiatric Exam Psychiatric exam: Normal Affect, Normal Mood - Skin Skin Exam: Dry, Intact, Normal Color Assessment and Plan - Assessment and Plan (Free Text) Assessment: 77yo [place] female with no PMHx presented with daughter to [facility] on 10/31 for AMS and abdominal pain; also with new onset atrial fibrillation and now s/p ERCP for cholangitis Plan: Altered Mental Status -resolved -likely secondary to high temp -CT head: negative Sepsis -secondary to acute cholangitis -MRCP: 12mm stone in distal CBD and multiple gallstones -s/p ERCP with stent placement -Transaminitis downtrending -Blood and urine cultures negative -Procalcitonin mildly elevated -PRN Tylenol for fever -Merrem 1gm ivpb q8 Day 4 -Zofran for nausea -patient for repeat ERCP with Dr. Garcia tomorrow; NPO after midnight; Hold heparin 3-4 hours prior to procedure -acute hep panel negative -f/u HIV panel -GI: Dr Petersen consulted -GI: Dr Garcia consulted -ID: Dr Holden consulted Aflutter -currently rate controlled -Continue titratable cardizem drip per cardio -Added IV digoxin -ASA 81mg po qd -Heparin gtt; hold 3-4 hours preprocedure -f/u Echo -Patient had mildly elevated troponins, which trended down; more likely 2/2 demand ischemia -Cardio: Dr. Alvarez consulted Dyspnea -Patient reports history of "asthma" though does not recall details of diagnosis and does not use any inhalers or medications at home -Patient wheezing on exam -Likely 2/2 COPD vs cardiac asthma -Continue PRN xopenex -Ordered Lasix 40 IV once for empiric treatment of cardiogenic asthma -Started IV steroids for presumed bronchogenic component Diabetes -Patient with elvated HbA1c, without prior diagnosis of diabetes -Start ISS low with accucheck ACHS GI ppx: Protonix 40mg ivp qd DVT ppx: Heparin gtt and SCDs Discussed with Dr. Escobar <Nia Escobar - Last Filed: 11/04/17 07:39> Objective - Vital Signs/Intake and Output Vital Signs (last 24 hours): Temp Pulse Resp BP Pulse Ox 98.3 F 70 19 170/102 H 95 11/04/17 06:00 11/04/17 07:28 11/04/17 06:20 11/04/17 07:28 11/04/17 06:20 Intake and Output: 11/04/17 11/04/17 06:59 18:59 Intake Total 264 Output Total 950 Balance -686 - Medications Medications: Current Medications Acetaminophen (Tylenol 325mg Tab) 650 mg PO Q4 PRN PRN Reason: Fever >100.4 F Aspirin (Ecotrin) 81 mg PO DAILY [facility] Last Admin: 11/03/17 10:09 Dose: 81 mg Digoxin (Lanoxin) 0.25 mg IVP 1400 [facility] Last Admin: 11/03/17 14:22 Dose: 0.25 mg diltiaZEM IVPB 100mg in NS (Cardizem 100mg In Ns) 100 mls @ 5 mls/hr IV .Q20H PRN; Protocol; 5 MG/HR PRN Reason: TITRATE PER MD ORDER Last Titration: 11/03/17 15:36 Dose: 2 mg/hr, 2 mls/hr Heparin Sodium/Sodium Chloride (Heparin 24520 Units/250ml 1/2 Normal Saline) 25 ,000 units in 250 mls @ 17.57 mls/hr IV .[id number] PRN; Protocol; 18 UNITS/KG/HR PRN Reason: ADJUST RATE PER PROTOCOL Last Admin: 11/03/17 16:44 Dose: 12 units/kg/hr, 11.714 mls/hr Meropenem (Merrem Iv 1 Gm Premix) 50 mls @ 100 mls/hr IVPB Q8 [facility] PRN Reason: Protocol Stop: 11/10/17 14:01 Last Admin: 11/04/17 05:35 Dose: 100 mls/hr Insulin Human Regular (Humulin R Low) 0 units SC ACHS [facility] PRN Reason: Protocol Levalbuterol HCl (Xopenex) 0.63 mg IH TIDRESP [facility] Last Admin: 11/03/17 19:57 Dose: 0.63 mg Methylprednisolone (Solu-Medrol) 40 mg IVP Q12 [facility] Last Admin: 11/03/17 21:22 Dose: 40 mg Metoprolol Tartrate (Lopressor) 25 mg PO BID [facility] Last Admin: 11/04/17 07:28 Dose: 25 mg Ondansetron HCl (Zofran Inj) 4 mg IVP Q6H PRN PRN Reason: Nausea/Vomiting Pantoprazole Sodium (Protonix Inj) 40 mg IVP DAILY [facility] Last Admin: 11/03/17 10:09 Dose: 40 mg - Labs Labs: 11/04/17 05:45 11/03/17 05:48 PT 12.1 SECONDS (9.4-12.5) 11/03/17 12:30 INR 1.05 (0.93-1.08) 11/03/17 12:30 APTT 65.8 Seconds (25.1-36.5) H 11/03/17 05:48 Attending/Attestation - Attestation I have personally seen and examined this patient.: Yes I have fully participated in the care of the patient.: Yes I have reviewed all pertinent clinical information, including history, physical exam and plan: Yes Notes (Text): 11/04/17 07:33 1. Patient is a 77-year-old lady admitted with abdominal pain. Found to have ascending cholangitis secondary to obstructed CBD stone. Status post ERCP and stent placement. Plan for ERCP and stone removal tomorrow. Continue IV meropenem. Patient is afebrile and nontoxic today. 2. Atrial fibrillation with rapid A. fib; continue Cardizem drip and IV digoxin. Continue heparin drip. troponin is trending down.. 3. Elevated LFTs; secondary to obstructed CBD stone. Resolving after stent placement. Monitor closely. 4. Elevated troponin; improving. Mostly secondary to demand ischemia. Continue IV heparin drip. Continue aspirin, metoprolol. Follow-up with cardiology closely. 5. Surgery evaluation appreciated. Patient needs cholecystectomy after Ercp and stone removal. Case discussed with GI and surgery in detail. Upon discharge the patient will be referred to [facility] [place].
[2017-11-04] MEDS: Meropenem IV 1 gm in NS 50 ML IVPB SCH ×3 (05:35→21:11)
--- NOTE | 2017-11-04 06:51 | CP.CCUPN ---
<Jelly Kerr - Last Filed: 11/04/17 09:42> CCU Subjective - Physician Review Subjective (Free Text): 11/04/17 07:29 Patient seen and examined at bedside. POD#3 ERCP with stent placement. No acute events overnight as per nursing. Patient's daughter at bedside was translating. Patient reports she had a good night and was able to sleep well and denied any SOB, palpitations and reported her cough was improving. Patient has been NPO after midnight for ERCP this AM. Denied any acute complaints of fever, chills, headache, dizziness, chest pain, cough, abd pain, nausea, vomiting, bowel/ bladder complaints, pain/swelling in her legs b/l. Patient's heparin gtt was held overnight and cardizem gtt was at 2cc/hr this morning. Patient had 1 BM yesterday and is making good urine and tolerated liquid diet yesterday. Critical Care Time Spent (in minutes): 45 CCU Objective - Vital Signs / Intake & Output Vital Signs (Last 4 hours): Vital Signs Temp Pulse Resp BP Pulse Ox 11/04/17 06:20 81 19 95 11/04/17 06:10 94 H 22 95 11/04/17 06:00 98.3 F 94 H 17 158/74 H 95 11/04/17 05:50 81 97 11/04/17 05:40 97 H 28 H 96 11/04/17 05:30 72 14 99 11/04/17 05:20 65 16 99 11/04/17 05:10 73 16 98 11/04/17 05:00 68 15 140/68 98 11/04/17 04:50 73 14 98 11/04/17 04:40 75 16 99 11/04/17 04:30 67 15 99 11/04/17 04:20 68 17 99 11/04/17 04:10 74 16 100 11/04/17 04:00 75 15 140/64 99 11/04/17 03:50 73 15 99 11/04/17 03:40 73 15 99 11/04/17 03:30 71 14 99 11/04/17 03:20 73 14 99 11/04/17 03:10 73 15 99 11/04/17 03:00 71 16 159/98 H 100 Intake and Output (Last 8hrs): Intake & Output 11/03/17 11/03/1711/04/18 14:59 22:59 06:59 Intake Total 75 806 264 Output Total 6100 950 Balance 53 -6632 -809 Intake: IV 75 386 264 Right Antecubital 240 cardizem 5 24 insulin 121 Oral 420 Output: Urine 6100 950 Urine, Voided 6100 950 - Physical Exam Head: Positive for: Normocephalic, Other (Chronic skin lesions to left infraorbital facial area) Pupils: Positive for: PERRL Extroacular Muscles: Positive for: EOMI Conjunctiva: Positive for: Normal Ears: Positive for: Normal, NORMAL TM, Normal Canal. Negative for: Erythema, TM Bulging, Fluid Mouth: Positive for: Moist Mucous Membranes Pharnyx: Positive for: Normal. Negative for: ERYTHEMA, EXUDATE, TONSILS ENLARGED, Peritonsilar Swelling, Uvular Deviation, Muffled/Hoarse Voice, Strider , Soft Palate/Uvular Edema Nose (External): Positive for: Atraumatic Nose (Internal): Positive for: Normal Inspection Neck: Positive for: Normal Range of Motion. Negative for: Meningeal Signs, MIDLINE TENDERNESS, Paraspinal Tenderness Respiratory/Chest: Positive for: Clear to Auscultation, Good Air Exchange. Negative for: Respiratory Distress, Accessory Muscle Use Cardiovascular: Positive for: Normal S1, S2, Irregular Rhythm (Irregular, irregular), Tachycardic. Negative for: Murmurs Abdomen: Positive for: Normal Bowel Sounds. Negative for: Tenderness, Distention, Peritoneal Signs Back: Positive for: Normal Inspection. Negative for: CVA Tenderness, Midline Tenderness, Paraspinal Tenderness Upper Extremity: Positive for: Normal Inspection, Normal ROM, NORMAL PULSES, Neurovascularly Intact, Capillary Refill < 2s. Negative for: Cyanosis, Edema, Tenderness, Swelling, Erythema, Temperature Abnormalties, Deformity Lower Extremity: Positive for: Normal Inspection, NORMAL PULSES, Normal ROM, Neurovascularly Intact, Capillary Refill < 2 s. Negative for: Edema, CALF TENDERNESS, Cyanosis, Tenderness, Swelling, Erythema, Deformity, Temperature Abnormalties Neurological: Positive for: GCS=15, CN II-XII Intact, Speech Normal, Motor Func Grossly Intact, Normal Sensory Function, Normal Cerebellar Funct Skin: Positive for: Warm, Dry, Normal Color. Negative for: Rashes Psychiatric: Positive for: Alert, Oriented x 3, Normal Insight, Normal Concentration, Normal Affect, Normal Mood - Medications Active Medications: Active Medications Generic Name Dose Route Start Last Admin Trade Name Freq PRN Reason Stop Dose Admin Acetaminophen 650 mg 11/01/17 00:58 Tylenol 325mg Tab PO Q4 PRN Fever >100.4 F Aspirin 81 mg 11/01/17 07:00 11/03/17 10:09 Ecotrin PO 81 mg DAILY CHARI Administration Digoxin 0.25 mg 11/03/17 14:00 11/03/17 14:22 Lanoxin IVP 0.25 mg 1400 CHARI Administration diltiaZEM IVPB 100mg in NS 100 mls @ 5 mls/hr 10/31/17 23:05 11/03/17 15:36 Cardizem 100mg In Ns IV 2 mg/hr .Q20H PRN 2 mls/hr TITRATE PER MD ORDER Titration Protocol 5 MG/HR Heparin Sodium/Sodium Chloride 25,000 units in 250 mls @ 17.57 mls/hr 02:15 11/03/17 16:44 Heparin 16078 Units/250ml 1/2 Normal Saline IV 12 units/kg/hr .[id number] PRN 11.714 mls/hr ADJUST RATE PER PROTOCOL Administration Protocol 18 UNITS/KG/HR Meropenem 50 mls @ 100 mls/hr 11/01/17 14:00 11/04/17 05:35 Merrem Iv 1 Gm Premix IVPB 11/10/17 14:01 100 mls/hr Q8 CHARI Administration Protocol Insulin Human Regular 0 units 11/03/17 22:00 Humulin R Low SC ACHS CHARI Protocol Levalbuterol HCl 0.63 mg 11/03/17 03:45 11/03/17 19:57 Xopenex IH 0.63 mg TIDRESP CHARI Administration Methylprednisolone 40 mg 11/03/17 10:15 11/03/17 21:22 Solu-Medrol IVP 40 mg Q12 CHARI Administration Metoprolol Tartrate 25 mg 11/02/17 18:00 11/03/17 17:44 Lopressor PO 25 mg BID CHARI Administration Ondansetron HCl 4 mg 11/01/17 01:00 Zofran Inj IVP Q6H PRN Nausea/Vomiting Pantoprazole Sodium 40 mg 11/02/17 10:00 11/03/17 10:09 Protonix Inj IVP 40 mg DAILY CHARI Administration - Patient Studies Lab Studies: Lab Studies 11/03/17 11/03/17 11/03/17 Range/Units 12:30 10:30 05:48 WBC (4.5-11.0) 10^3/ul RBC (3.5-6.1) 10^6/uL Hgb (12.0-16.0) g/dL Hct (36.0-48.0) % MCV (80.0-105.0) fl MCH (25.0-35.0) pg MCHC (31.0-37.0) g/dl RDW (11.5-14.5) % Plt Count (120.0-450.0) 10^3/uL MPV (7.0-11.0) fl Gran % (50.0-68.0) % Lymph % (Auto) (22.0-35.0) % [place] % (Auto) (1.0-6.0) % Eos % (Auto) (1.5-5.0) % Baso % (Auto) (0.0-3.0) % Gran # (1.4-6.5) Lymph # (1.2-3.4) [place] # (0.1-0.6) Eos # (0.0-0.7) Baso # (0.0-2.0) K/mm3 PT 12.1 (9.4-12.5) SECONDS INR 1.05 (0.93-1.08) APTT (25.1-36.5) Seconds Sodium 136 (132-148) mmol/L Potassium 4.2 (3.6-5.0) mmol/L Chloride 102 (98-107) mmol/L Carbon Dioxide 24 (21-33) mmol/L Anion Gap 14 (10-20) BUN 9 (7-21) mg/dL Creatinine 0.6 L (0.7-1.2) mg/dl Est GFR ( Amer) > 60 Est GFR (Non-Af Amer) > 60 Random Glucose 122 H (70-110) mg/dL Hemoglobin A1c (4.2-6.5) % Calcium 8.9 (8.4-10.5) mg/dL Total Bilirubin 1.2 (0.2-1.3) mg/dL AST 67 H D (14-36) U/L ALT 151 H (7-56) U/L Alkaline Phosphatase 252 H (38-126) U/L Total Protein 7.0 (5.8-8.3) g/dL Albumin 3.3 (3.0-4.8) g/dL Globulin 3.7 gm/dL Albumin/Globulin Ratio 0.9 L (1.1-1.8) Digoxin < 0.4 L (0.8-2.0) ng/mL Hepatitis A IgM Ab (NEGATIVE) Hep Bs Antigen (NEGATIVE) Hep B Core IgM Ab (NEGATIVE) Hepatitis C Antibody (NEGATIVE) HIV 1&2 Ag/Ab, 4th Gen (Nonreactive) 11/03/17 11/03/17 11/01/17 Range/Units 05:48 05:48 09:55 WBC 7.1 (4.5-11.0) 10^3/ul RBC 4.29 (3.5-6.1) 10^6/uL Hgb 12.5 (12.0-16.0) g/dL Hct 37.7 (36.0-48.0) % MCV 87.9 (80.0-105.0) fl MCH 29.1 (25.0-35.0) pg MCHC 33.2 (31.0-37.0) g/dl RDW 14.6 H (11.5-14.5) % Plt Count 236 (120.0-450.0) 10^3/uL MPV 10.5 (7.0-11.0) fl Gran % 84.8 H (50.0-68.0) % Lymph % (Auto) 9.3 L (22.0-35.0) % [place] % (Auto) 5.8 (1.0-6.0) % Eos % (Auto) 0.0 L (1.5-5.0) % Baso % (Auto) 0.1 (0.0-3.0) % Gran # 6.05 (1.4-6.5) Lymph # 0.7 L (1.2-3.4) [place] # 0.4 (0.1-0.6) Eos # 0.0 (0.0-0.7) Baso # 0.01 (0.0-2.0) K/mm3 PT (9.4-12.5) SECONDS INR (0.93-1.08) APTT 65.8 H (25.1-36.5) Seconds Sodium (132-148) mmol/L Potassium (3.6-5.0) mmol/L Chloride (98-107) mmol/L Carbon Dioxide (21-33) mmol/L Anion Gap (10-20) BUN (7-21) mg/dL Creatinine (0.7-1.2) mg/dl Est GFR ( Amer) Est GFR (Non-Af Amer) Random Glucose (70-110) mg/dL Hemoglobin A1c (4.2-6.5) % Calcium (8.4-10.5) mg/dL Total Bilirubin (0.2-1.3) mg/dL AST (14-36) U/L ALT (7-56) U/L Alkaline Phosphatase (38-126) U/L Total Protein (5.8-8.3) g/dL Albumin (3.0-4.8) g/dL Globulin gm/dL Albumin/Globulin Ratio (1.1-1.8) Digoxin (0.8-2.0) ng/mL Hepatitis A IgM Ab (NEGATIVE) Hep Bs Antigen (NEGATIVE) Hep B Core IgM Ab (NEGATIVE) Hepatitis C Antibody (NEGATIVE) HIV 1&2 Ag/Ab, 4th Gen Nonreactive (Nonreactive) 11/01/17 11/01/17 Range/Units 05:00 05:00 WBC (4.5-11.0) 10^3/ul RBC (3.5-6.1) 10^6/uL Hgb (12.0-16.0) g/dL Hct (36.0-48.0) % MCV (80.0-105.0) fl MCH (25.0-35.0) pg MCHC (31.0-37.0) g/dl RDW (11.5-14.5) % Plt Count (120.0-450.0) 10^3/uL MPV (7.0-11.0) fl Gran % (50.0-68.0) % Lymph % (Auto) (22.0-35.0) % [place] % (Auto) (1.0-6.0) % Eos % (Auto) (1.5-5.0) % Baso % (Auto) (0.0-3.0) % Gran # (1.4-6.5) Lymph # (1.2-3.4) [place] # (0.1-0.6) Eos # (0.0-0.7) Baso # (0.0-2.0) K/mm3 PT (9.4-12.5) SECONDS INR (0.93-1.08) APTT (25.1-36.5) Seconds Sodium (132-148) mmol/L Potassium (3.6-5.0) mmol/L Chloride (98-107) mmol/L Carbon Dioxide (21-33) mmol/L Anion Gap (10-20) BUN (7-21) mg/dL Creatinine (0.7-1.2) mg/dl Est GFR ( Amer) Est GFR (Non-Af Amer) Random Glucose (70-110) mg/dL Hemoglobin A1c 7.2 H (4.2-6.5) % Calcium (8.4-10.5) mg/dL Total Bilirubin (0.2-1.3) mg/dL AST (14-36) U/L ALT (7-56) U/L Alkaline Phosphatase (38-126) U/L Total Protein (5.8-8.3) g/dL Albumin (3.0-4.8) g/dL Globulin gm/dL Albumin/Globulin Ratio (1.1-1.8) Digoxin (0.8-2.0) ng/mL Hepatitis A IgM Ab Negative (NEGATIVE) Hep Bs Antigen Negative (NEGATIVE) Hep B Core IgM Ab Negative (NEGATIVE) Hepatitis C Antibody Negative (NEGATIVE) HIV 1&2 Ag/Ab, 4th Gen (Nonreactive) Laboratory Results - last 24 hr 11/01/17 11/01/17 11/01/17 05:00 05:00 09:55 WBC RBC Hgb Hct MCV MCH MCHC RDW Plt Count MPV Gran % Lymph % (Auto) [place] % (Auto) Eos % (Auto) Baso % (Auto) Gran # Lymph # [place] # Eos # Baso # PT INR APTT Sodium Potassium Chloride Carbon Dioxide Anion Gap BUN Creatinine Est GFR ( Amer) Est GFR (Non-Af Amer) Random Glucose Hemoglobin A1c 7.2 H Calcium Total Bilirubin AST ALT Alkaline Phosphatase Total Protein Albumin Globulin Albumin/Globulin Ratio Digoxin Hepatitis A IgM Ab Negative Hep Bs Antigen Negative Hep B Core IgM Ab Negative Hepatitis C Antibody Negative HIV 1&2 Ag/Ab, 4th Gen Nonreactive 11/03/17 11/03/17 11/03/17 05:48 05:48 05:48 WBC 7.1 RBC 4.29 Hgb 12.5 Hct 37.7 MCV 87.9 MCH 29.1 MCHC 33.2 RDW 14.6 H Plt Count 236 MPV 10.5 Gran % 84.8 H Lymph % (Auto) 9.3 L [place] % (Auto) 5.8 Eos % (Auto) 0.0 L Baso % (Auto) 0.1 Gran # 6.05 Lymph # 0.7 L [place] # 0.4 Eos # 0.0 Baso # 0.01 PT INR APTT 65.8 H Sodium 136 Potassium 4.2 Chloride 102 Carbon Dioxide 24 Anion Gap 14 BUN 9 Creatinine 0.6 L Est GFR ( Amer) > 60 Est GFR (Non-Af Amer) > 60 Random Glucose 122 H Hemoglobin A1c Calcium 8.9 Total Bilirubin 1.2 AST 67 H D ALT 151 H Alkaline Phosphatase 252 H Total Protein 7.0 Albumin 3.3 Globulin 3.7 Albumin/Globulin Ratio 0.9 L Digoxin Hepatitis A IgM Ab Hep Bs Antigen Hep B Core IgM Ab Hepatitis C Antibody HIV 1&2 Ag/Ab, 4th Gen 11/03/17 11/03/17 10:30 12:30 WBC RBC Hgb Hct MCV MCH MCHC RDW Plt Count MPV Gran % Lymph % (Auto) [place] % (Auto) Eos % (Auto) Baso % (Auto) Gran # Lymph # [place] # Eos # Baso # PT 12.1 INR 1.05 APTT Sodium Potassium Chloride Carbon Dioxide Anion Gap BUN Creatinine Est GFR ( Amer) Est GFR (Non-Af Amer) Random Glucose Hemoglobin A1c Calcium Total Bilirubin AST ALT Alkaline Phosphatase Total Protein Albumin Globulin Albumin/Globulin Ratio Digoxin < 0.4 L Hepatitis A IgM Ab Hep Bs Antigen Hep B Core IgM Ab Hepatitis C Antibody HIV 1&2 Ag/Ab, 4th Gen EKG/Cardiology Studies: Cardiology / EKG Studies 11/03/17 06:00 ELECTROCARDIOGRAM DAILY Comment: Reason For Exam: atrial flutter, [place] Fingerstick Blood Sugar Results: 155 Review of Systems - Review of Systems All systems: reviewed and no additional remarkable complaints except - Constitutional Constitutional: absent: Fever, Chills - EENT Eyes: As Per HPI. absent: Blurred Vision Ears: As Per HPI. absent: Dizziness Nose/Mouth/Throat: As Per HPI. absent: Sore Throat - Cardiovascular Cardiovascular: As Per HPI. absent: Chest Pain, Dyspnea, Dyspnea on Exertion, Edema, Palpitations, Pedal Edema - Respiratory Respiratory: As Per HPI. absent: Cough, Dyspnea, Chest Congestion - Gastrointestinal Gastrointestinal: As Per HPI. absent: Abdominal Pain, Constipation, Diarrhea, Nausea, Vomiting - Genitourinary Genitourinary: As Per HPI. absent: Dysuria, Hematuria - Musculoskeletal Musculoskeletal: As Par HPI. absent: Numbness, Tingling - Integumentary Integumentary: As Per HPI Additional comments: L facial wound - Neurological Neurological: As Per HPI. absent: Dizziness, Numbness, Headaches, Tingling - Endocrine Endocrine: As Per HPI. absent: Palpitations - Hematologic/Lymphatic Hematologic: As Per HPI. absent: Easy Bleeding, Easy Bruising, Lymphadenopathy Critical Care Progress Note - Nutrition Nutrition: Nutrition Category Date Time Status Liquid Diet [DIET] Diets 11/02/17 Breakfast Ordered NPO Diet [DIET] Diets 11/04/17 Breakfast Ordered Assessment/Plan - Assessment and Plan (Free Text) Assessment: 77yo Citizen Of [place] female with no PMHx presented with daughter [place] [facility] [place] for AMS and high temp. Patient admitted to ICU for sepsis secondary to acute cholangitis secondary to choledocholithiasis and new onset Afib/Aflutter with RVR Plan: Neuro: -no acute issues -AMS resolved -CT head negative Cardio: -Rapid Aflutter -Cardizem gtt @ 2cc this AM -Heparin gtt held this AM- will resume post procedure as per GI and cardio -ASA 81mg qd -Lopressor 25mg po bid -Digoxin 0.25mg ivp qd -Echo: dilated LA, normal LV and systolic fxn, Mild apical hypokinesis, mild concentric LVH, mild MR and TR -Cardio: Dr. Alvarez consulted Pulm: -CXR: neg -Xopenex 0.63inh tid -Solumedrol 20mg ivp q12 GI: -acute cholangitis secondary to choledocholithiasis -POD#3 ERCP with stent placement -ERCP this AM for possible stent and stone extraction -MRCP: 12mm stone in distal CBD and multiple gallstones -Abd u/s: gallstones and sludge; prominent common duct; negative Fernandez's sign -CT abd/pelvis: minimal pericholecystic fluid/edema suggesting cholecystitis; mildly dilated CBD; fatty liver, no acute solid visceral abnl; fibroid uterus; diverticulosis without CT evidence of diverticulitis -LFTs, TBili, Alk Phos trending down -Hep panel negative -tolerating CLD -GI: Dr Petersen consulted -GI: Dr Garcia consulted Renal: -no acute issues Endo: -HgbA1c: 7.2 -Accucheck ACHS -RISS low Heme/Onc: -no acute issues ID: -Sepsis secondary to acute cholangitis secondary to choledocholithiasis -Procal: 0.9 -Blood culture neg x 2 -Urine culture neg -MRSA neg -POD#3 ERCP with stent placement -ERCP this AM for possible stent and stone extraction -MRCP: 12mm stone in distal CBD and multiple gallstones -Abd u/s: gallstones and sludge; prominent common duct; negative Fernandez's sign -CT abd/pelvis: minimal pericholecystic fluid/edema suggesting cholecystitis; mildly dilated CBD; fatty liver, no acute solid visceral abnl; fibroid uterus; diverticulosis without CT evidence of diverticulitis -Merrem 1gm ivpb q8 Day 4 -ID: Dr Holden consulted Psych: -no acute issues GI ppx: Protonix 40mg ivp qd DVT ppx: Heparin gtt and SCDs Diet: NPO for ERCP this AM- will ADAT post procedure Discussed with Dr. Primitivo Kerr PGY2 <Kolby Langford - Last Filed: 11/04/17 10:06> CCU Objective - Vital Signs / Intake & Output Vital Signs (Last 4 hours): Vital Signs Temp Pulse Resp BP Pulse Ox 11/04/17 08:52 93 L 11/04/17 08:20 100 H 31 H 93 L 11/04/17 08:10 106 H 26 H 93 L 11/04/17 08:00 98.1 F 104 H 29 H 151/85 H 94 L 11/04/17 07:50 95 H 20 99 11/04/17 07:40 103 H 18 96 11/04/17 07:30 100 H 43 H 92 L 11/04/17 07:28 96 H 18 170/102 H 94 L 11/04/17 07:20 95 H 22 188/113 H 95 11/04/17 07:10 98 H 18 95 11/04/17 07:01 94 H 15 173/89 H 94 L 11/04/17 07:00 88 41 H 95 11/04/17 06:50 99 H 94 L 11/04/17 06:40 104 H 19 95 11/04/17 06:30 98 H 21 95 11/04/17 06:20 81 19 95 11/04/17 06:10 94 H 22 95 Intake and Output (Last 8hrs): Intake & Output 11/03/17 11/04/17 11/04/17 22:59 06:59 14:59 Intake Total 806 264 35 Output Total 6100 950 Balance -0291 -026 35 Intake: IV 386 264 35 Right Antecubital 240 cardizem 5 24 insulin 121 Oral 420 Output: Urine 6100 950 Urine, Voided 6100 950 - Medications Active Medications: Active Medications Generic Name Dose Route Start Last Admin Trade Name Freq PRN Reason Stop Dose Admin Acetaminophen 650 mg 11/01/17 00:58 Tylenol 325mg Tab PO Q4 PRN Fever >100.4 F Aspirin 81 mg 11/01/17 07:00 11/03/17 10:09 Ecotrin PO 81 mg DAILY CHARI Administration Digoxin 0.25 mg 11/03/17 14:00 11/03/17 14:22 Lanoxin IVP 0.25 mg 1400 CHARI Administration diltiaZEM IVPB 100mg in NS 100 mls @ 5 mls/hr 10/31/17 23:05 11/04/17 07:30 Cardizem 100mg In Ns IV 10 mg/hr .Q20H PRN 10 mls/hr TITRATE PER MD ORDER Titration Protocol 5 MG/HR Heparin Sodium/Sodium Chloride 25,000 units in 250 mls @ 17.57 mls/hr 02:15 11/03/17 16:44 Heparin 09787 Units/250ml 1/2 Normal Saline IV 12 units/kg/hr .[id number] PRN 11.714 mls/hr ADJUST RATE PER PROTOCOL Administration Protocol 18 UNITS/KG/HR Meropenem 50 mls @ 100 mls/hr 11/01/17 14:00 11/04/17 05:35 Merrem Iv 1 Gm Premix IVPB 11/10/17 14:01 100 mls/hr Q8 CHARI Administration Protocol Insulin Human Regular 0 units 11/03/17 22:00 11/04/17 07:30 Humulin R Low SC Not Given ACHS [facility] Protocol Levalbuterol HCl 0.63 mg 11/03/17 03:45 11/04/17 07:37 Xopenex IH 0.63 mg TIDRESP CHARI Administration Methylprednisolone 20 mg 11/04/17 07:40 Solu-Medrol IVP Q12 CHARI Metoprolol Tartrate 25 mg 11/02/17 18:00 11/04/17 07:28 Lopressor PO 25 mg BID CHARI Administration Ondansetron HCl 4 mg 11/01/17 01:00 Zofran Inj IVP Q6H PRN Nausea/Vomiting Pantoprazole Sodium 40 mg 11/02/17 10:00 11/03/17 10:09 Protonix Inj IVP 40 mg DAILY CHARI Administration - Patient Studies Lab Studies: Lab Studies 11/04/17 11/04/17 11/04/17 Range/Units 07:07 05:45 05:45 WBC 5.1 D (4.5-11.0) 10^3/ul RBC 4.67 (3.5-6.1) 10^6/uL Hgb 13.5 (12.0-16.0) g/dL Hct 40.4 (36.0-48.0) % MCV 86.5 (80.0-105.0) fl MCH 28.9 (25.0-35.0) pg MCHC 33.4 (31.0-37.0) g/dl RDW 14.3 (11.5-14.5) % Plt Count 260 (120.0-450.0) 10^3/uL MPV 10.1 (7.0-11.0) fl Gran % 79.9 H (50.0-68.0) % Lymph % (Auto) 15.2 L (22.0-35.0) % [place] % (Auto) 4.9 (1.0-6.0) % Eos % (Auto) 0.0 L (1.5-5.0) % Baso % (Auto) 0.0 (0.0-3.0) % Gran # 4.10 (1.4-6.5) Lymph # 0.8 L (1.2-3.4) [place] # 0.3 (0.1-0.6) Eos # 0.0 (0.0-0.7) Baso # 0.00 (0.0-2.0) K/mm3 PT (9.4-12.5) SECONDS INR (0.93-1.08) Sodium 137 (132-148) mmol/L Potassium 3.9 (3.6-5.0) mmol/L Chloride 96 L (98-107) mmol/L Carbon Dioxide 29 (21-33) mmol/L Anion Gap 15 (10-20) BUN 11 (7-21) mg/dL Creatinine 0.6 L (0.7-1.2) mg/dl Est GFR ( Amer) > 60 Est GFR (Non-Af Amer) > 60 POC Glucose (mg/dL) 129 H (65-110) mg/dL Random Glucose 144 H (70-110) mg/dL Hemoglobin A1c (4.2-6.5) % Calcium 9.6 (8.4-10.5) mg/dL Total Bilirubin 1.2 (0.2-1.3) mg/dL AST 64 H (14-36) U/L ALT 126 H (7-56) U/L Alkaline Phosphatase 240 H (38-126) U/L Total Protein 7.6 (5.8-8.3) g/dL Albumin 3.6 (3.0-4.8) g/dL Globulin 4.0 gm/dL Albumin/Globulin Ratio 0.9 L (1.1-1.8) Digoxin (0.8-2.0) ng/mL Hepatitis A IgM Ab (NEGATIVE) Hep Bs Antigen (NEGATIVE) Hep B Core IgM Ab (NEGATIVE) Hepatitis C Antibody (NEGATIVE) HIV 1&2 Ag/Ab, 4th Gen (Nonreactive) 11/03/17 11/03/17 11/01/17 Range/Units 12:30 10:30 09:55 WBC (4.5-11.0) 10^3/ul RBC (3.5-6.1) 10^6/uL Hgb (12.0-16.0) g/dL Hct (36.0-48.0) % MCV (80.0-105.0) fl MCH (25.0-35.0) pg MCHC (31.0-37.0) g/dl RDW (11.5-14.5) % Plt Count (120.0-450.0) 10^3/uL MPV (7.0-11.0) fl Gran % (50.0-68.0) % Lymph % (Auto) (22.0-35.0) % [place] % (Auto) (1.0-6.0) % Eos % (Auto) (1.5-5.0) % Baso % (Auto) (0.0-3.0) % Gran # (1.4-6.5) Lymph # (1.2-3.4) [place] # (0.1-0.6) Eos # (0.0-0.7) Baso # (0.0-2.0) K/mm3 PT 12.1 (9.4-12.5) SECONDS INR 1.05 (0.93-1.08) Sodium (132-148) mmol/L Potassium (3.6-5.0) mmol/L Chloride (98-107) mmol/L Carbon Dioxide (21-33) mmol/L Anion Gap (10-20) BUN (7-21) mg/dL Creatinine (0.7-1.2) mg/dl Est GFR ( Amer) Est GFR (Non-Af Amer) POC Glucose (mg/dL) (65-110) mg/dL Random Glucose (70-110) mg/dL Hemoglobin A1c (4.2-6.5) % Calcium (8.4-10.5) mg/dL Total Bilirubin (0.2-1.3) mg/dL AST (14-36) U/L ALT (7-56) U/L Alkaline Phosphatase (38-126) U/L Total Protein (5.8-8.3) g/dL Albumin (3.0-4.8) g/dL Globulin gm/dL Albumin/Globulin Ratio (1.1-1.8) Digoxin < 0.4 L (0.8-2.0) ng/mL Hepatitis A IgM Ab (NEGATIVE) Hep Bs Antigen (NEGATIVE) Hep B Core IgM Ab (NEGATIVE) Hepatitis C Antibody (NEGATIVE) HIV 1&2 Ag/Ab, 4th Gen Nonreactive (Nonreactive) 11/01/17 11/01/17 Range/Units 05:00 05:00 WBC (4.5-11.0) 10^3/ul RBC (3.5-6.1) 10^6/uL Hgb (12.0-16.0) g/dL Hct (36.0-48.0) % MCV (80.0-105.0) fl MCH (25.0-35.0) pg MCHC (31.0-37.0) g/dl RDW (11.5-14.5) % Plt Count (120.0-450.0) 10^3/uL MPV (7.0-11.0) fl Gran % (50.0-68.0) % Lymph % (Auto) (22.0-35.0) % [place] % (Auto) (1.0-6.0) % Eos % (Auto) (1.5-5.0) % Baso % (Auto) (0.0-3.0) % Gran # (1.4-6.5) Lymph # (1.2-3.4) [place] # (0.1-0.6) Eos # (0.0-0.7) Baso # (0.0-2.0) K/mm3 PT (9.4-12.5) SECONDS INR (0.93-1.08) Sodium (132-148) mmol/L Potassium (3.6-5.0) mmol/L Chloride (98-107) mmol/L Carbon Dioxide (21-33) mmol/L Anion Gap (10-20) BUN (7-21) mg/dL Creatinine (0.7-1.2) mg/dl Est GFR ( Amer) Est GFR (Non-Af Amer) POC Glucose (mg/dL) (65-110) mg/dL Random Glucose (70-110) mg/dL Hemoglobin A1c 7.2 H (4.2-6.5) % Calcium (8.4-10.5) mg/dL Total Bilirubin (0.2-1.3) mg/dL AST (14-36) U/L ALT (7-56) U/L Alkaline Phosphatase (38-126) U/L Total Protein (5.8-8.3) g/dL Albumin (3.0-4.8) g/dL Globulin gm/dL Albumin/Globulin Ratio (1.1-1.8) Digoxin (0.8-2.0) ng/mL Hepatitis A IgM Ab Negative (NEGATIVE) Hep Bs Antigen Negative (NEGATIVE) Hep B Core IgM Ab Negative (NEGATIVE) Hepatitis C Antibody Negative (NEGATIVE) HIV 1&2 Ag/Ab, 4th Gen (Nonreactive) Laboratory Results - last 24 hr 11/01/17 11/01/17 11/01/17 05:00 05:00 09:55 WBC RBC Hgb Hct MCV MCH MCHC RDW Plt Count MPV Gran % Lymph % (Auto) [place] % (Auto) Eos % (Auto) Baso % (Auto) Gran # Lymph # [place] # Eos # Baso # PT INR Sodium Potassium Chloride Carbon Dioxide Anion Gap BUN Creatinine Est GFR ( Amer) Est GFR (Non-Af Amer) POC Glucose (mg/dL) Random Glucose Hemoglobin A1c 7.2 H Calcium Total Bilirubin AST ALT Alkaline Phosphatase Total Protein Albumin Globulin Albumin/Globulin Ratio Digoxin Hepatitis A IgM Ab Negative Hep Bs Antigen Negative Hep B Core IgM Ab Negative Hepatitis C Antibody Negative HIV 1&2 Ag/Ab, 4th Gen Nonreactive 11/03/17 11/03/17 11/04/17 10:30 12:30 05:45 WBC 5.1 D RBC 4.67 Hgb 13.5 Hct 40.4 MCV 86.5 MCH 28.9 MCHC 33.4 RDW 14.3 Plt Count 260 MPV 10.1 Gran % 79.9 H Lymph % (Auto) 15.2 L [place] % (Auto) 4.9 Eos % (Auto) 0.0 L Baso % (Auto) 0.0 Gran # 4.10 Lymph # 0.8 L [place] # 0.3 Eos # 0.0 Baso # 0.00 PT 12.1 INR 1.05 Sodium Potassium Chloride Carbon Dioxide Anion Gap BUN Creatinine Est GFR ( Amer) Est GFR (Non-Af Amer) POC Glucose (mg/dL) Random Glucose Hemoglobin A1c Calcium Total Bilirubin AST ALT Alkaline Phosphatase Total Protein Albumin Globulin Albumin/Globulin Ratio Digoxin < 0.4 L Hepatitis A IgM Ab Hep Bs Antigen Hep B Core IgM Ab Hepatitis C Antibody HIV 1&2 Ag/Ab, 4th Gen 11/04/17 11/04/17 05:45 07:07 WBC RBC Hgb Hct MCV MCH MCHC RDW Plt Count MPV Gran % Lymph % (Auto) [place] % (Auto) Eos % (Auto) Baso % (Auto) Gran # Lymph # [place] # Eos # Baso # PT INR Sodium 137 Potassium 3.9 Chloride 96 L Carbon Dioxide 29 Anion Gap 15 BUN 11 Creatinine 0.6 L Est GFR ( Amer) > 60 Est GFR (Non-Af Amer) > 60 POC Glucose (mg/dL) 129 H Random Glucose 144 H Hemoglobin A1c Calcium 9.6 Total Bilirubin 1.2 AST 64 H ALT 126 H Alkaline Phosphatase 240 H Total Protein 7.6 Albumin 3.6 Globulin 4.0 Albumin/Globulin Ratio 0.9 L Digoxin Hepatitis A IgM Ab Hep Bs Antigen Hep B Core IgM Ab Hepatitis C Antibody HIV 1&2 Ag/Ab, 4th Gen Critical Care Progress Note - Nutrition Nutrition: Nutrition Category Date Time Status NPO Diet [DIET] Diets 11/04/17 Breakfast Ordered Assessment/Plan - Assessment and Plan (Free Text) Plan: Patient seen and examined with resident on rounds, agree with note with following additions/exceptions: Patient is 77yo female without significant PMHx presented with severe sepsis 2/ 2 ascending cholangitis, cholecystitis s/p ERCP with stent placement, has been off pressors, on broad spectrum antibiotics. Currently afebrile, HD stable, comfortable in Afib HR 90, on cardizem drip, OFF heparin drip for planned ERCP today. Cardiology, GI, ID and surgery following. LFTs and TBili, downtrending. Doing well overall. Severe Sepsis Cholangitis/Cholecystitis Dehydration Abnormal LFTs New onset Afib Recommend: - Antibiotics as per ID, Merropenem - Follow up cultures - Rate control, switch IV Cardizem to PO cardizem, resume heparin after ERCP - follow up cardiology, monitor electrolytes - resume diet after ERCP - follow up surgery - IVF hydration - monitor LFTs, Tbili - GI ppx - DVT ppx
[2017-11-04 07:03] LABS: GRAN # 4.1 (1.4-6.5); GRAN % 79.9 % (50.0-68.0); HEMOGLOBIN 13.5 g/dL (12.0-16.0); LYMPH # 0.8 (1.2-3.4); LYMPH % 15.2 % (22.0-35.0); MEAN CELL VOLUME 86.5 fl (80.0-105.0); MEAN CORPUSCULAR HEMOGLOBIN 28.9 pg (25.0-35.0); MEAN CORPUSCULAR HGB CONC 33.4 g/dl (31.0-37.0); MEAN PLATELET VOLUME 10.1 fl (7.0-11.0); MONO # 0.3 (0.1-0.6); MONO % 4.9 % (1.0-6.0); RBC 4.67 10^6/uL (3.5-6.1); RED CELL DISTRIBUTION WIDTH 14.3 % (11.5-14.5); WHITE BLOOD COUNT 5.1 10^3/ul (4.5-11.0)
[2017-11-04] MEDS: Insulin Reg-LOW-Coverage SC SCH ×4 (07:30→22:51)
[2017-11-04] MEDS: Levalbuterol 0.63 MG/3 ML Inhal Soln UD IH SCH ×3 (07:37→20:35)
[2017-11-04 07:48] LABS: ALB/GLOB RATIO 0.9 (1.1-1.8); ALBUMIN 3.6 g/dL (3.0-4.8); ALT/SGPT 126 U/L (7-56); AST/SGOT 64 U/L (14-36); BLOOD UREA NITROGEN 11 mg/dL (7-21); CALCIUM 9.6 mg/dL (8.4-10.5); GFR AFRICAN-AMERICAN > 60; GFR NON-AFRICAN AMERICAN > 60
--- NOTE | 2017-11-04 08:20 | CP.PCM.PN ---
Subjective - Date & Time of Evaluation Date of Evaluation: 11/04/17 Time of Evaluation: 07:00 - Subjective Subjective: Stable in CCU. On card drip with Armand Adan, mod VR. No CP or SOB reported. I spoke with Dr. Ruth yestrday V/S note. Armand Adan, VR 70 - 100 BPM PE: Lungs: few rhonchi Cor.: irreg, S1S2 Abd.: soft Ext.: no edema Neuro.: alert I/H=[id number] Labs noted.K+= 3.9, Cr.= 0.6, CBC OK BC x2 NG at 3 days ECG: A. Flut at 127 BPM, NSSTW chnages Objective - Vital Signs/Intake and Output Vital Signs (last 24 hours): Temp Pulse Resp BP Pulse Ox 98.3 F 70 19 170/102 H 95 11/04/17 06:00 11/04/17 07:28 11/04/17 06:20 11/04/17 07:28 11/04/17 06:20 Intake and Output: 11/04/17 11/04/17 06:59 18:59 Intake Total 264 Output Total 950 Balance -686 - Medications Medications: Current Medications Acetaminophen (Tylenol 325mg Tab) 650 mg PO Q4 PRN PRN Reason: Fever >100.4 F Aspirin (Ecotrin) 81 mg PO DAILY [facility] Last Admin: 11/03/17 10:09 Dose: 81 mg Digoxin (Lanoxin) 0.25 mg IVP 1400 [facility] Last Admin: 11/03/17 14:22 Dose: 0.25 mg diltiaZEM IVPB 100mg in NS (Cardizem 100mg In Ns) 100 mls @ 5 mls/hr IV .Q20H PRN; Protocol; 5 MG/HR PRN Reason: TITRATE PER MD ORDER Last Titration: 11/03/17 15:36 Dose: 2 mg/hr, 2 mls/hr Heparin Sodium/Sodium Chloride (Heparin 02023 Units/250ml 1/2 Normal Saline) 25 ,000 units in 250 mls @ 17.57 mls/hr IV .[id number] PRN; Protocol; 18 UNITS/KG/HR PRN Reason: ADJUST RATE PER PROTOCOL Last Admin: 11/03/17 16:44 Dose: 12 units/kg/hr, 11.714 mls/hr Meropenem (Merrem Iv 1 Gm Premix) 50 mls @ 100 mls/hr IVPB Q8 [facility] PRN Reason: Protocol Stop: 11/10/17 14:01 Last Admin: 11/04/17 05:35 Dose: 100 mls/hr Insulin Human Regular (Humulin R Low) 0 units SC ACHS [facility] PRN Reason: Protocol Levalbuterol HCl (Xopenex) 0.63 mg IH TIDRESP [facility] Last Admin: 11/04/17 07:37 Dose: 0.63 mg Methylprednisolone (Solu-Medrol) 20 mg IVP Q12 [facility] Metoprolol Tartrate (Lopressor) 25 mg PO BID [facility] Last Admin: 11/04/17 07:28 Dose: 25 mg Ondansetron HCl (Zofran Inj) 4 mg IVP Q6H PRN PRN Reason: Nausea/Vomiting Pantoprazole Sodium (Protonix Inj) 40 mg IVP DAILY [facility] Last Admin: 11/03/17 10:09 Dose: 40 mg - Labs Labs: 11/04/17 05:45 11/04/17 05:45 PT 12.1 SECONDS (9.4-12.5) 11/03/17 12:30 INR 1.05 (0.93-1.08) 11/03/17 12:30 APTT 65.8 Seconds (25.1-36.5) H 11/03/17 05:48 Assessment and Plan - Assessment and Plan (Free Text) Assessment: Multiple GI sxs with fever, jaundice AMS Gall Stones/Acute Cholecystitis Sepsis S/P biliary stent Mildly + troponon level/doubt acute WA A. Flutter Plan: Continue IV heparin post procedure and IV diltiazem for now. As per GI and surgery and intensivists OK for ERCP, etc today, off heparin for 3 hrs. She is at mildly increased cardiac risk. Resume heparin post procedure, as per GI. AB. As per ID Monitor: labs, I/O, sats., cultures, LFT's, PTT's etc. Will follow.
[2017-11-04] MEDS ORDERED: Iohexol 240 (50 ml) ONE (08:21)
[2017-11-04] MEDS ORDERED: Indomethacin 50 MG Suppository PR ONE (08:23)
[2017-11-04] MEDS ORDERED: Propofol 10 mg/ml Inj (20 ML) ONE (08:40)
[2017-11-04] MEDS ORDERED: Succinylcholine 200 mg/10 ml Inj IV ONE (08:41)
[2017-11-04] MEDS ORDERED: Lidocaine 1% Inj (20ml) ONE (08:41)
[2017-11-04] MEDS ORDERED: Phenylephrine 10 mg/ml Inj ONE (09:51)
--- NOTE | 2017-11-04 10:20 | CP.PCM.PN ---
Addendum entered and electronically signed by Zainab Leyva DO 11/04/17 15:18 : Repeat ERCP was done today with stent removal, sphincterotomy and stone/sludge extraction. Plan for laparoscopic cholecystectomy, possible open tomorrow. NPO past midnight. Heparin drip stopped. Original Note: <Zainab Leyva - Last Filed: 11/04/17 10:22> Subjective - Date & Time of Evaluation Date of Evaluation: 11/04/17 Time of Evaluation: 07:00 - Subjective Subjective: GENERAL SURGERY PROGRESS NOTE FOR DR. SALEH Patient seen and examined at bedside. She is NPO for ERCP today. She denies pain , was tolerating liquid diet before she was made NPO. Heparin drip was stopped for procedure. Objective - Vital Signs/Intake and Output Vital Signs (last 24 hours): Temp Pulse Resp BP Pulse Ox 98.1 F 100 H 31 H 151/85 H 93 L 11/04/17 08:00 11/04/17 08:20 11/04/17 08:20 11/04/17 08:00 11/04/17 08:52 Intake and Output: 11/04/17 11/04/17 06:59 18:59 Intake Total 264 35 Output Total 950 Balance -686 35 - Medications Medications: Current Medications Acetaminophen (Tylenol 325mg Tab) 650 mg PO Q4 PRN PRN Reason: Fever >100.4 F Aspirin (Ecotrin) 81 mg PO DAILY [facility] Last Admin: 11/03/17 10:09 Dose: 81 mg Digoxin (Lanoxin) 0.25 mg IVP 1400 [facility] Last Admin: 11/03/17 14:22 Dose: 0.25 mg diltiaZEM IVPB 100mg in NS (Cardizem 100mg In Ns) 100 mls @ 5 mls/hr IV .Q20H PRN; Protocol; 5 MG/HR PRN Reason: TITRATE PER MD ORDER Last Titration: 11/04/17 07:30 Dose: 10 mg/hr, 10 mls/hr Heparin Sodium/Sodium Chloride (Heparin 96378 Units/250ml 1/2 Normal Saline) 25 ,000 units in 250 mls @ 17.57 mls/hr IV .[id number] PRN; Protocol; 18 UNITS/KG/HR PRN Reason: ADJUST RATE PER PROTOCOL Last Admin: 11/03/17 16:44 Dose: 12 units/kg/hr, 11.714 mls/hr Meropenem (Merrem Iv 1 Gm Premix) 50 mls @ 100 mls/hr IVPB Q8 [facility] PRN Reason: Protocol Stop: 11/10/17 14:01 Last Admin: 11/04/17 05:35 Dose: 100 mls/hr Insulin Human Regular (Humulin R Low) 0 units SC ACHS [facility] PRN Reason: Protocol Last Admin: 11/04/17 07:30 Dose: Not Given Levalbuterol HCl (Xopenex) 0.63 mg IH TIDRESP [facility] Last Admin: 11/04/17 07:37 Dose: 0.63 mg Methylprednisolone (Solu-Medrol) 20 mg IVP Q12 [facility] Metoprolol Tartrate (Lopressor) 25 mg PO BID [facility] Last Admin: 11/04/17 07:28 Dose: 25 mg Ondansetron HCl (Zofran Inj) 4 mg IVP Q6H PRN PRN Reason: Nausea/Vomiting Pantoprazole Sodium (Protonix Inj) 40 mg IVP DAILY [facility] Last Admin: 11/03/17 10:09 Dose: 40 mg - Labs Labs: 11/04/17 05:45 11/04/17 05:45 PT 12.1 SECONDS (9.4-12.5) 11/03/17 12:30 INR 1.05 (0.93-1.08) 11/03/17 12:30 APTT 65.8 Seconds (25.1-36.5) H 11/03/17 05:48 - Constitutional Appears: Non-toxic, No Acute Distress - Head Exam Head Exam: ATRAUMATIC, NORMAL INSPECTION - Eye Exam Eye Exam: EOMI, Normal appearance - Respiratory Exam Respiratory Exam: NORMAL BREATHING PATTERN. absent: Respiratory Distress - Cardiovascular Exam Cardiovascular Exam: +S1, +S2 - GI/Abdominal Exam GI & Abdominal Exam: Soft. absent: Distended, Firm, Guarding, Rigid, Tenderness , Rebound - Neurological Exam Neurological Exam: Alert, Awake, Oriented x3 - Skin Skin Exam: Dry, Normal Color, Warm Assessment and Plan - Assessment and Plan (Free Text) Assessment: 77yo F w/ ascending cholangitis secondary to choledocholithiasis s/p ERCP with stent placement - GI doing repeat ERCP for stone and stent removal today - NPO for procedure - T bili WNL now and LFTs trending down - Diet recs as per GI - Continue IVF - Abx as per ID - Will need cholecystectomy after CBD stone removed Discussed plan with Dr. Therese Leyva PGY-3 <Nathen Saleh - Last Filed: 11/08/17 21:03> Objective - Vital Signs/Intake and Output Vital Signs (last 24 hours): Temp Pulse Resp BP Pulse Ox 97.9 F 85 27 H 132/64 92 L 11/08/17 12:00 11/08/17 14:20 11/08/17 14:20 11/08/17 13:00 11/08/17 14:20 Intake and Output: 11/08/17 11/09/17 18:59 06:59 Intake Total 120 Balance 120 - Labs Labs: 11/08/17 05:30 11/08/17 05:30 PT 11.3 SECONDS (9.4-12.5) 11/05/17 06:30 INR 0.98 (0.93-1.08) 11/05/17 06:30 APTT 58.5 Seconds (25.1-36.5) H 11/08/17 09:20 Attending/Attestation - Attestation I have personally seen and examined this patient.: Yes I have fully participated in the care of the patient.: Yes I have reviewed all pertinent clinical information, including history, physical exam and plan: Yes Notes (Text): Pt was seen and examined at bedside Agree with above note and assessment ERCP with stone removal done Case discussed with Dr. Garcia OR tomorrow for Lap Cholecystectomy NPO, IVF Consent Plan d.w pt's daughter in detail Risk and benefit explained in detail.
[2017-11-04] MEDS: MethylPREDNISolone 40 mg Vial IVP SCH ×2 (10:48→21:11)
[2017-11-04] MEDS: Digoxin 500 mcg/2ml (0.5 mg/2ml) Inj IVP SCH (13:06)
--- NOTE | 2017-11-04 14:37 | CP.PCM.PN ---
<Raiza Purdy - Last Filed: 11/04/17 14:34> Subjective - Date & Time of Evaluation Date of Evaluation: 11/04/17 Time of Evaluation: 07:30 - Subjective Subjective: Raiza Purdy DO PGY1 - Internal Medicine Progress Note Patient seen and examined at bedside. Nurse reports no acute events overnight. Patient no longer complaining of SOB. Patient scheduled for repeat ERCP today. Denies abdominal pain, nausea, vomiting, diarrhea, constipation, fever, chills. Patient's daughter at bedside acting as limb driver. Objective - Vital Signs/Intake and Output Vital Signs (last 24 hours): Temp Pulse Resp BP Pulse Ox 97.9 F 80 12 161/72 H 97 11/04/17 12:00 11/04/17 13:09 11/04/17 12:30 11/04/17 13:09 11/04/17 12:30 Intake and Output: 11/04/17 11/04/17 06:59 18:59 Intake Total 264 75 Output Total 950 Balance -686 75 - Medications Medications: Current Medications Acetaminophen (Tylenol 325mg Tab) 650 mg PO Q4 PRN PRN Reason: Fever >100.4 F Aspirin (Ecotrin) 81 mg PO DAILY [facility] Last Admin: 11/04/17 10:49 Dose: Not Given Digoxin (Lanoxin) 0.25 mg IVP 1400 [facility] Last Admin: 11/04/17 13:06 Dose: 0.25 mg Diltiazem HCl (Cardizem) 30 mg PO QID [facility] Last Admin: 11/04/17 13:09 Dose: 30 mg diltiaZEM IVPB 100mg in NS (Cardizem 100mg In Ns) 100 mls @ 5 mls/hr IV .Q20H PRN; Protocol; 5 MG/HR PRN Reason: TITRATE PER MD ORDER Last Titration: 11/04/17 13:00 Dose: 2 mg/hr, 2 mls/hr Heparin Sodium/Sodium Chloride (Heparin 11598 Units/250ml 1/2 Normal Saline) 25 ,000 units in 250 mls @ 17.57 mls/hr IV .[id number] PRN; Protocol; 18 UNITS/KG/HR PRN Reason: ADJUST RATE PER PROTOCOL Last Admin: 11/03/17 16:44 Dose: 12 units/kg/hr, 11.714 mls/hr Meropenem (Merrem Iv 1 Gm Premix) 50 mls @ 100 mls/hr IVPB Q8 [facility] PRN Reason: Protocol Stop: 11/10/17 14:01 Last Admin: 11/04/17 13:08 Dose: 100 mls/hr Insulin Human Regular (Humulin R Low) 0 units SC ACHS [facility] PRN Reason: Protocol Last Admin: 11/04/17 10:50 Dose: Not Given Levalbuterol HCl (Xopenex) 0.63 mg IH TIDRESP [facility] Last Admin: 11/04/17 13:16 Dose: 0.63 mg Methylprednisolone (Solu-Medrol) 20 mg IVP Q12 [facility] Last Admin: 11/04/17 10:48 Dose: 20 mg Metoprolol Tartrate (Lopressor) 25 mg PO BID [facility] Last Admin: 11/04/17 10:50 Dose: Not Given Ondansetron HCl (Zofran Inj) 4 mg IVP Q6H PRN PRN Reason: Nausea/Vomiting Pantoprazole Sodium (Protonix Inj) 40 mg IVP DAILY [facility] Last Admin: 11/04/17 10:49 Dose: 40 mg - Labs Labs: 11/04/17 05:45 11/04/17 05:45 PT 12.1 SECONDS (9.4-12.5) 11/03/17 12:30 INR 1.05 (0.93-1.08) 11/03/17 12:30 APTT 65.8 Seconds (25.1-36.5) H 11/03/17 05:48 - Constitutional Appears: Non-toxic, No Acute Distress - Head Exam Head Exam: ATRAUMATIC, NORMOCEPHALIC - Eye Exam Eye Exam: EOMI, Normal appearance, PERRL - ENT Exam ENT Exam: Mucous Membranes Moist - Respiratory Exam Respiratory Exam: Clear to Ausculation Bilateral, NORMAL BREATHING PATTERN - Cardiovascular Exam Cardiovascular Exam: Tachycardia, Irregular Rhythm, +S1, +S2 - GI/Abdominal Exam GI & Abdominal Exam: Soft, Normal Bowel Sounds. absent: Tenderness, Organomegaly - Extremities Exam Extremities Exam: absent: Calf Tenderness, Pedal Edema - Neurological Exam Neurological Exam: Alert, Awake, Oriented x3 - Psychiatric Exam Psychiatric exam: Normal Affect, Normal Mood - Skin Skin Exam: Dry, Intact, Normal Color Assessment and Plan - Assessment and Plan (Free Text) Assessment: 77yo [place] female with no PMHx [place] with [place] [facility] [place] for AMS and abdominal pain; also with new onset atrial fibrillation and now s/p ERCP for cholangitis Plan: Altered Mental Status -resolved -likely secondary to high temp -CT head: negative Sepsis - cholangitis, choledocolithiasis, cholelithiasis -secondary to acute cholangitis -MRCP: 12mm stone in distal CBD and multiple gallstones -s/p ERCP with stent placement; repeat ERCP today done with sphincterotomy and sweep -Patient is scheduled for cholecystectomy tomorrow at noon -Transaminitis downtrending -PRN Tylenol for fever -Merrem 1gm ivpb q8 Day 5 -Zofran for nausea -HIV panel negative -GI: Dr Petersen consulted -GI: Dr Garcia consulted -ID: Dr Holden consulted Aflutter -currently rate controlled on titratable drip -Titrate off cardizem drip and start PO cardizem -Continue IV digoxin -Continue PO Metroprolol per cardio -ASA 81mg po qd -Heparin gtt; resume 24 hours post-ERCP, pending surgical recs for cholescystectomy -f/u Echo -Cardio: Dr. 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 Escobar <Nia Escobar - Last Filed: 11/04/17 15:38> Objective - Vital Signs/Intake and Output Vital Signs (last 24 hours): Temp Pulse Resp BP Pulse Ox 97.9 F 93 H 19 141/61 96 11/04/17 12:00 11/04/17 14:50 11/04/17 14:50 11/04/17 14:40 11/04/17 14:50 Intake and Output: 11/04/17 11/04/17 06:59 18:59 Intake Total 264 77 Output Total 950 Balance -686 77 - Medications Medications: Current Medications Acetaminophen (Tylenol 325mg Tab) 650 mg PO Q4 PRN PRN Reason: Fever >100.4 F Aspirin (Ecotrin) 81 mg PO DAILY [facility] Last Admin: 11/04/17 10:49 Dose: Not Given Digoxin (Lanoxin) 0.25 mg IVP 1400 [facility] Last Admin: 11/04/17 13:06 Dose: 0.25 mg Diltiazem HCl (Cardizem) 30 mg PO QID [facility] Last Admin: 11/04/17 14:40 Dose: 30 mg diltiaZEM IVPB 100mg in NS (Cardizem 100mg In Ns) 100 mls @ 5 mls/hr IV .Q20H PRN; Protocol; 5 MG/HR PRN Reason: TITRATE PER MD ORDER Last Titration: 11/04/17 14:50 Dose: 0 mg/hr, 0 mls/hr Heparin Sodium/Sodium Chloride (Heparin 39782 Units/250ml 1/2 Normal Saline) 25 ,000 units in 250 mls @ 17.57 mls/hr IV .[id number] PRN; Protocol; 18 UNITS/KG/HR PRN Reason: ADJUST RATE PER PROTOCOL Last Admin: 11/03/17 16:44 Dose: 12 units/kg/hr, 11.714 mls/hr Meropenem (Merrem Iv 1 Gm Premix) 50 mls @ 100 mls/hr IVPB Q8 [facility] PRN Reason: Protocol Stop: 11/10/17 14:01 Last Admin: 11/04/17 13:08 Dose: 100 mls/hr Sodium Chloride (Sodium Chloride 0.9%) 100 mls @ 125 mls/hr IV .Q48M [facility] Insulin Human Regular (Humulin R Low) 0 units SC ACHS [facility] PRN Reason: Protocol Last Admin: 11/04/17 10:50 Dose: Not Given Levalbuterol HCl (Xopenex) 0.63 mg IH TIDRESP [facility] Last Admin: 11/04/17 13:16 Dose: 0.63 mg Methylprednisolone (Solu-Medrol) 20 mg IVP Q12 [facility] Last Admin: 11/04/17 10:48 Dose: 20 mg Metoprolol Tartrate (Lopressor) 25 mg PO BID [facility] Last Admin: 11/04/17 10:50 Dose: Not Given Ondansetron HCl (Zofran Inj) 4 mg IVP Q6H PRN PRN Reason: Nausea/Vomiting Pantoprazole Sodium (Protonix Inj) 40 mg IVP DAILY [facility] Last Admin: 11/04/17 10:49 Dose: 40 mg - Labs Labs: 11/04/17 05:45 11/04/17 05:45 PT 12.1 SECONDS (9.4-12.5) 11/03/17 12:30 INR 1.05 (0.93-1.08) 11/03/17 12:30 APTT 65.8 Seconds (25.1-36.5) H 11/03/17 05:48 Attending/Attestation - Attestation I have personally seen and examined this patient.: Yes I have fully participated in the care of the patient.: Yes I have reviewed all pertinent clinical information, including history, physical exam and plan: Yes Notes (Text): 11/04/17 15:32 attending note; Patient seen and examined with resident in ICU. Patient's daughter by the bed side. 1. Patient is a 77-year-old lady admitted with abdominal pain. Found to have ascending cholangitis secondary to obstructed CBD stone. Status post ERCP and stent placement. Status post ERCP sphincterotomy and stone removal today. Continue IV meropenem. Patient is afebrile and nontoxic today. 2. Atrial fibrillation with rapid A. fib; continue Cardizem drip and IV digoxin. started on by mouth Cardizem and metoprolol. heparin drip on hold. troponin is trending down. 3. Elevated LFTs; secondary to obstructed CBD stone. Resolving after stent placement. 4. Elevated troponin; improving. Mostly secondary to demand ischemia. Continue aspirin. 5. Surgery evaluation appreciated. Plan for cholecystectomy tomorrow. Upon discharge the patient will be [place] [facility] [place]
--- NOTE | 2017-11-04 15:48 | RAD ---
PROCEDURE: ERCP HISTORY: STONES COMPARISON: TECHNIQUE: Fluoroscopy was provided in the endoscopy suite. 12 minutes and 26 seconds of fluoro time used. Seven images submitted FINDINGS: The study shows a a severely dilated common bile duct. There is passage of a balloon catheter. IMPRESSION: As above
--- NOTE | 2017-11-04 15:50 | RAD ---
PROCEDURE: ERCP HISTORY: ? CBD OBST / STENT INSERTION COMPARISON: TECHNIQUE: Fluoroscopy was provided in the endoscopy suite. 35.3 seconds of fluoro time were used. 6 images were submitted FINDINGS: The study shows a stone in the common duct. There is placement of a common duct stent IMPRESSION: As above
--- NOTE | 2017-11-04 20:14 | PN ---
DATE: 11/04/2017 SUBJECTIVE: The patient is in bed, in no acute distress, nontoxic. PHYSICAL EXAMINATION: VITAL SIGNS: Temperature is 97, blood pressure is 140/60, respiratory rate of 18. HEENT: Unremarkable. NECK: Supple. LUNGS: Decreased breath sounds. HEART: Normal S1 and S2. ABDOMEN: Soft. LABORATORY EXAMINATION: Reveals a white count of 5.1. BUN of 11 and creatinine 0.6. Chemistries reveal the LFTs are improving. Urinalysis is noted. is negative. Microbiology reveals blood cultures are negative. MRSA screen is negative. Urine cultures are negative. The patient is here for repeat ERCP today, removal of a common bile duct stone, sphincterotomy, extraction of the stone, removal of the stent. progress note is reviewed. The patient is planned for a laparoscopic cholecystectomy, possibly tomorrow. MEDICATIONS: Review of medication reveals the patient to be on meropenem. ASSESSMENT AND PLAN: This is a 77-year-old female seen in Coronary Care Unit earlier, obesity with a body mass index of 31, severe sepsis secondary to ascending cholangitis status post endoscopic retrograde cholangiopancreatography, placement of the stent, removal of the stone. The patient for possible cholecystectomy tomorrow. Currently on meropenem. Price Holden MD
[2017-11-04] MEDS: Sodium Chloride 0.9% 1,000 ML IV SCH (22:52)
[2017-11-04] MEDS ORDERED: Sodium Chloride 0.9% 100 ML IV SCH ×2 (23:30)
[2017-11-05] MEDS: Meropenem IV 1 gm in NS 50 ML IVPB SCH ×3 (05:31→21:24)
[2017-11-05 07:20] LABS: BASO # 0.02 K/mm3 (0.0-2.0); BASO % 0.3 % (0.0-3.0); GRAN # 5.53 (1.4-6.5); GRAN % 81.7 % (50.0-68.0); HEMOGLOBIN 13.8 g/dL (12.0-16.0); MEAN CELL VOLUME 87.2 fl (80.0-105.0); MEAN CORPUSCULAR HEMOGLOBIN 28.9 pg (25.0-35.0); MEAN CORPUSCULAR HGB CONC 33.2 g/dl (31.0-37.0); MEAN PLATELET VOLUME 10.3 fl (7.0-11.0); MONO # 0.3 (0.1-0.6); RBC 4.77 10^6/uL (3.5-6.1); RED CELL DISTRIBUTION WIDTH 14.2 % (11.5-14.5); WHITE BLOOD COUNT 6.8 10^3/ul (4.5-11.0)
[2017-11-05] MEDS: Levalbuterol 0.63 MG/3 ML Inhal Soln UD IH SCH ×3 (07:22→20:25)
[2017-11-05 07:24] LABS: INR 0.98 (0.93-1.08); PROTHROMBIN TIME 11.3 SECONDS (9.4-12.5)
[2017-11-05] MEDS: Insulin Reg-LOW-Coverage SC SCH ×4 (07:30→21:48)
--- NOTE | 2017-11-05 07:33 | CP.PCM.PN ---
<Joni Gonzalez - Last Filed: 11/05/17 09:30> Subjective - Date & Time of Evaluation Date of Evaluation: 11/05/17 Time of Evaluation: 07:10 - Subjective Subjective: GI Progress note: Patient seen and examined at bedside. No acute events overnight. Pt states that she is doing well denies any abdominal pain, n/v/d at this time. No other complaints. 12 point review of systems performed, negative other than stated above. Objective - Vital Signs/Intake and Output Vital Signs (last 24 hours): Temp Pulse Resp BP Pulse Ox 97.9 F 83 17 151/72 H 95 11/04/17 19:00 11/05/17 06:50 11/05/17 06:50 11/05/17 06:40 11/05/17 06:50 - Medications Medications: Current Medications Acetaminophen (Tylenol 325mg Tab) 650 mg PO Q4 PRN PRN Reason: Fever >100.4 F Aspirin (Ecotrin) 81 mg PO DAILY [facility] Last Admin: 11/04/17 10:49 Dose: Not Given Digoxin (Lanoxin) 0.25 mg IVP 1400 [facility] Last Admin: 11/04/17 13:06 Dose: 0.25 mg Diltiazem HCl (Cardizem) 30 mg PO QID [facility] Last Admin: 11/04/17 21:10 Dose: 30 mg diltiaZEM IVPB 100mg in NS (Cardizem 100mg In Ns) 100 mls @ 5 mls/hr IV .Q20H PRN; Protocol; 5 MG/HR PRN Reason: TITRATE PER MD ORDER Last Titration: 11/04/17 14:50 Dose: 0 mg/hr, 0 mls/hr Heparin Sodium/Sodium Chloride (Heparin 64602 Units/250ml 1/2 Normal Saline) 25 ,000 units in 250 mls @ 17.57 mls/hr IV .[id number] PRN; Protocol; 18 UNITS/KG/HR PRN Reason: ADJUST RATE PER PROTOCOL Last Admin: 11/03/17 16:44 Dose: 12 units/kg/hr, 11.714 mls/hr Meropenem (Merrem Iv 1 Gm Premix) 50 mls @ 100 mls/hr IVPB Q8 [facility] PRN Reason: Protocol Stop: 11/10/17 14:01 Last Admin: 11/05/17 05:31 Dose: 100 mls/hr Sodium Chloride (Sodium Chloride 0.9%) 1,000 mls @ 100 mls/hr IV .Q10H [facility] Last Admin: 11/04/17 22:52 Dose: 100 mls/hr Insulin Human Regular (Humulin R Low) 0 units SC ACHS [facility] PRN Reason: Protocol Last Admin: 11/04/17 22:51 Dose: Not Given Levalbuterol HCl (Xopenex) 0.63 mg IH TIDRESP [facility] Last Admin: 11/05/17 07:22 Dose: 0.63 mg Methylprednisolone (Solu-Medrol) 20 mg IVP Q12 [facility] Last Admin: 11/04/17 21:11 Dose: 20 mg Metoprolol Tartrate (Lopressor) 25 mg PO BID [facility] Last Admin: 11/04/17 17:27 Dose: 25 mg Ondansetron HCl (Zofran Inj) 4 mg IVP Q6H PRN PRN Reason: Nausea/Vomiting Pantoprazole Sodium (Protonix Inj) 40 mg IVP DAILY [facility] Last Admin: 11/04/17 10:49 Dose: 40 mg - Labs Labs: 11/04/17 05:45 11/04/17 05:45 PT 11.3 SECONDS (9.4-12.5) 11/05/17 06:30 INR 0.98 (0.93-1.08) 11/05/17 06:30 APTT 65.8 Seconds (25.1-36.5) H 11/03/17 05:48 - Constitutional Appears: No Acute Distress - Head Exam Head Exam: ATRAUMATIC, NORMOCEPHALIC - Eye Exam Eye Exam: EOMI - ENT Exam ENT Exam: Mucous Membranes Moist - Respiratory Exam Respiratory Exam: Clear to Ausculation Bilateral. absent: Wheezes - Cardiovascular Exam Cardiovascular Exam: REGULAR RHYTHM, RRR, +S1, +S2 - GI/Abdominal Exam GI & Abdominal Exam: Soft. absent: Distended, Tenderness - Neurological Exam Neurological Exam: Alert, Awake, Oriented x3 - Psychiatric Exam Psychiatric exam: Normal Affect, Normal Mood - Skin Skin Exam: Dry, Intact, Warm Assessment and Plan - Assessment and Plan (Free Text) Assessment: 77 F with pmh of HTN and obesity presents with abd pain, fevers, jaundice and confusion x 1 day, found to have acute cholangitis, choledocholithiasis s/p ERCP with stent placement POD 3, and now s/p ERCP with removal of stent, sphincterotomy and baboon extraction of stone. 1. Acute cholangitis 2. Choledocholithiasis s/p ERCP with stent placement and another ERCP with removal of stent, sphincterotomy and baboon extraction of stone 3. A-flutter 4. Obesity - NPO after midnight - continue to monitor LFTs - H/H stable - continue to monitor - Continue with antibiotic therapy - Ingrid - Blood cultures negative - Follow up surgical team- Plan for cholecystectomy today - F/u with cardiology recs - Will continue to monitor patient clinical course Pt was seen and plan reviewed in detail with Dr Varela. <Avery SIMMONS,[facility] - Last Filed: 11/05/17 09:46> Objective - Vital Signs/Intake and Output Vital Signs (last 24 hours): Temp Pulse Resp BP Pulse Ox 98 F 90 17 167/92 H 96 11/05/17 07:41 11/05/17 09:13 11/05/17 07:41 11/05/17 09:13 11/05/17 07:41 Intake and Output: 11/05/17 11/05/17 06:59 18:59 Intake Total 1400 Output Total 400 Balance 1000 - Medications Medications: Current Medications Acetaminophen (Tylenol 325mg Tab) 650 mg PO Q4 PRN PRN Reason: Fever >100.4 F Aspirin (Ecotrin) 81 mg PO DAILY [facility] Last Admin: 11/04/17 10:49 Dose: Not Given Digoxin (Lanoxin) 0.25 mg IVP 1400 [facility] Last Admin: 11/04/17 13:06 Dose: 0.25 mg Diltiazem HCl (Cardizem) 30 mg PO QID [facility] Last Admin: 11/05/17 09:12 Dose: 30 mg diltiaZEM IVPB 100mg in NS (Cardizem 100mg In Ns) 100 mls @ 5 mls/hr IV .Q20H PRN; Protocol; 5 MG/HR PRN Reason: TITRATE PER MD ORDER Last Titration: 11/04/17 14:50 Dose: 0 mg/hr, 0 mls/hr Heparin Sodium/Sodium Chloride (Heparin 14032 Units/250ml 1/2 Normal Saline) 25 ,000 units in 250 mls @ 17.57 mls/hr IV .[id number] PRN; Protocol; 18 UNITS/KG/HR PRN Reason: ADJUST RATE PER PROTOCOL Last Admin: 11/03/17 16:44 Dose: 12 units/kg/hr, 11.714 mls/hr Meropenem (Merrem Iv 1 Gm Premix) 50 mls @ 100 mls/hr IVPB Q8 [facility] PRN Reason: Protocol Stop: 11/10/17 14:01 Last Admin: 11/05/17 05:31 Dose: 100 mls/hr Sodium Chloride (Sodium Chloride 0.9%) 1,000 mls @ 100 mls/hr IV .Q10H [facility] Last Admin: 11/04/17 22:52 Dose: 100 mls/hr Insulin Human Regular (Humulin R Low) 0 units SC ACHS [facility] PRN Reason: Protocol Last Admin: 11/05/17 07:30 Dose: Not Given Levalbuterol HCl (Xopenex) 0.63 mg IH TIDRESP [facility] Last Admin: 11/05/17 07:22 Dose: 0.63 mg Methylprednisolone (Solu-Medrol) 20 mg IVP Q12 [facility] Last Admin: 11/05/17 09:14 Dose: 20 mg Metoprolol Tartrate (Lopressor) 25 mg PO BID [facility] Last Admin: 11/05/17 09:13 Dose: 25 mg Ondansetron HCl (Zofran Inj) 4 mg IVP Q6H PRN PRN Reason: Nausea/Vomiting Pantoprazole Sodium (Protonix Inj) 40 mg IVP DAILY [facility] Last Admin: 11/05/17 09:14 Dose: 40 mg - Labs Labs: 11/05/17 06:30 11/05/17 06:30 PT 11.3 SECONDS (9.4-12.5) 11/05/17 06:30 INR 0.98 (0.93-1.08) 11/05/17 06:30 APTT 65.8 Seconds (25.1-36.5) H 11/03/17 05:48 Attending/Attestation - Attestation I have personally seen and examined this patient.: Yes I have fully participated in the care of the patient.: Yes I have reviewed all pertinent clinical information, including history, physical exam and plan: Yes Notes (Text): 11/05/17 09:36 Patient seen with GI fellow and medical dermatologist at bedside in MICU. This is a 77 yr old F with HTN and obesity presents with abdominal pain, fevers, jaundice in setting of acute cholangitis due to choledocholithiasis s/p ERCP with with sphincterotomy and balloon extraction of stone. Currently in MICU with normalization of bilirubin. Scheduled for OR today for CCY. No abdominal pain on physical exam. Hepatitis serologies negative. H/Hct stable at baseline. - No need to send lipase - Diet as per surgical service per Or schedule - No biliary or pancreatic stent placed - Cultures negative - Continue antibiotics - A flutter treatment as per MICU and cardiology - Will continue to monitor patient clinical course - DVT prophylaxis
[2017-11-05 07:47] LABS: ALB/GLOB RATIO 0.9 (1.1-1.8); ALBUMIN 3.5 g/dL (3.0-4.8); ALT/SGPT 117 U/L (7-56); AST/SGOT 64 U/L (14-36); BLOOD UREA NITROGEN 20 mg/dL (7-21); CALCIUM 9.5 mg/dL (8.4-10.5); GFR AFRICAN-AMERICAN > 60; GFR NON-AFRICAN AMERICAN > 60
[2017-11-05] MEDS: MethylPREDNISolone 40 mg Vial IVP SCH (09:14)
[2017-11-05] MEDS: Metoprolol 1 mg/ml Inj IVP SCH ×3 (10:56→23:11)
[2017-11-05] MEDS ORDERED: Lidocaine 1% w Epi 1:100,000 Inj ONE (12:28)
[2017-11-05] MEDS ORDERED: Bupivacaine 0.5% Inj(30mL) ONE (12:28)
--- NOTE | 2017-11-05 13:27 | CP.PCM.PN ---
<Raiza Purdy - Last Filed: 11/05/17 13:17> Subjective - Date & Time of Evaluation Date of Evaluation: 11/05/17 Time of Evaluation: 07:30 - Subjective Subjective: Raiza Purdy DO PGY1 - Internal Medicine Progress Note Patient seen and examined at bedside. Nurse reports no acute events overnight. Patient is scheduled for cholecystectomy today, and is currently NPO. She denies any SOB, CP, abdominal pain, nausea, vomiting, diarrhea, constipation, fever, chills. Patient's daughter at bedside acting as log haul operator. Objective - Vital Signs/Intake and Output Vital Signs (last 24 hours): Temp Pulse Resp BP Pulse Ox 98.3 F 90 17 161/78 H 91 L 11/05/17 11:32 11/05/17 12:40 11/05/17 12:40 11/05/17 12:00 11/05/17 12:40 Intake and Output: 11/05/17 11/05/17 06:59 18:59 Intake Total 1400 Output Total 400 Balance 1000 - Medications Medications: Current Medications Acetaminophen (Tylenol 325mg Tab) 650 mg PO Q4 PRN PRN Reason: Fever >100.4 F Aspirin (Ecotrin) 81 mg PO DAILY [facility] Last Admin: 11/04/17 10:49 Dose: Not Given Digoxin (Lanoxin) 0.25 mg IVP 1400 [facility] Last Admin: 11/04/17 13:06 Dose: 0.25 mg Diltiazem HCl (Cardizem) 30 mg PO QID [facility] Last Admin: 11/05/17 09:12 Dose: 30 mg diltiaZEM IVPB 100mg in NS (Cardizem 100mg In Ns) 100 mls @ 5 mls/hr IV .Q20H PRN; Protocol; 5 MG/HR PRN Reason: TITRATE PER MD ORDER Last Titration: 11/04/17 14:50 Dose: 0 mg/hr, 0 mls/hr Heparin Sodium/Sodium Chloride (Heparin 22570 Units/250ml 1/2 Normal Saline) 25 ,000 units in 250 mls @ 17.57 mls/hr IV .[id number] PRN; Protocol; 18 UNITS/KG/HR PRN Reason: ADJUST RATE PER PROTOCOL Last Admin: 11/03/17 16:44 Dose: 12 units/kg/hr, 11.714 mls/hr Meropenem (Merrem Iv 1 Gm Premix) 50 mls @ 100 mls/hr IVPB Q8 [facility] PRN Reason: Protocol Stop: 11/10/17 14:01 Last Admin: 11/05/17 05:31 Dose: 100 mls/hr Sodium Chloride (Sodium Chloride 0.9%) 1,000 mls @ 100 mls/hr IV .Q10H [facility] Last Admin: 11/04/17 22:52 Dose: 100 mls/hr Insulin Human Regular (Humulin R Low) 0 units SC ACHS [facility] PRN Reason: Protocol Last Admin: 11/05/17 11:30 Dose: Not Given Levalbuterol HCl (Xopenex) 0.63 mg IH TIDRESP [facility] Last Admin: 11/05/17 13:14 Dose: 0.63 mg Methylprednisolone (Solu-Medrol) 20 mg IVP Q12 [facility] Last Admin: 11/05/17 09:14 Dose: 20 mg Metoprolol Tartrate (Lopressor) 25 mg PO BID [facility] Last Admin: 11/05/17 09:13 Dose: 25 mg Metoprolol Tartrate (Lopressor) 5 mg IVP Q6H [facility] Last Admin: 11/05/17 10:56 Dose: Not Given Ondansetron HCl (Zofran Inj) 4 mg IVP Q6H PRN PRN Reason: Nausea/Vomiting Pantoprazole Sodium (Protonix Inj) 40 mg IVP DAILY [facility] Last Admin: 11/05/17 09:14 Dose: 40 mg - Labs Labs: 11/05/17 06:30 11/05/17 06:30 PT 11.3 SECONDS (9.4-12.5) 11/05/17 06:30 INR 0.98 (0.93-1.08) 11/05/17 06:30 APTT 65.8 Seconds (25.1-36.5) H 11/03/17 05:48 - Constitutional Appears: Non-toxic, No Acute Distress - Head Exam Head Exam: ATRAUMATIC, NORMOCEPHALIC - Eye Exam Eye Exam: EOMI, Normal appearance, PERRL - ENT Exam ENT Exam: Mucous Membranes Moist - Neck Exam Neck Exam: Normal Inspection - Respiratory Exam Respiratory Exam: Wheezes (Faint), NORMAL BREATHING PATTERN - Cardiovascular Exam Cardiovascular Exam: Irregular Rhythm, +S1, +S2. absent: Tachycardia - GI/Abdominal Exam GI & Abdominal Exam: Soft, Normal Bowel Sounds. absent: Tenderness - Extremities Exam Extremities Exam: absent: Calf Tenderness, Pedal Edema - Neurological Exam Neurological Exam: Alert, Awake, Oriented x3 - Psychiatric Exam Psychiatric exam: Normal Affect, Normal Mood - Skin Skin Exam: Dry, Intact, Normal Color Assessment and Plan - Assessment and Plan (Free Text) Assessment: 77yo [place]ian female with no PMHx presented with daughter to [facility] on 10/31 for AMS and abdominal pain; also with new onset atrial fibrillation and now s/p ERCP for cholangitis and repeat ERCP with sphincterotomy and sweep Plan: Altered Mental Status -resolved -likely secondary to fever, now resolved -CT head: negative Cholangitis, choledocolithiasis, cholelithiasis -Patient initially presented in septic shock secondary to acute cholangitis, now resolved -MRCP: 12mm stone in distal CBD and multiple gallstones -s/p ERCP with stent placement; repeat ERCP yesterday done with sphincterotomy and sweep -Patient is scheduled for cholecystectomy today at noon -Transaminitis downtrending -PRN Tylenol for fever -Merrem 1gm ivpb q8 Day 6 -Zofran for nausea -GI: Dr Petersen consulted -GI: Dr Garcia consulted -ID: Dr Holden consulted Aflutter -currently rate controlled off titratable drip, on PO meds -Continue PO cardizem -Continue IV digoxin -Continue PO Metroprolol -ASA 81mg po qd -Heparin gtt; Currently holding, pending surgical recs for cholescystectomy -f/u Echo -Cardio: Dr. 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 Escobar <Nia Escobar - Last Filed: 11/05/17 15:13> Objective - Vital Signs/Intake and Output Vital Signs (last 24 hours): Temp Pulse Resp BP Pulse Ox 98.3 F 103 H 21 159/69 H 94 L 01/17/18 11:32 11/05/17 14:10 11/05/17 14:10 11/05/17 14:00 11/05/17 14:10 Intake and Output: 11/05/17 11/05/17 06:59 18:59 Intake Total 1400 Output Total 400 Balance 1000 - Medications Medications: Current Medications Acetaminophen (Tylenol 325mg Tab) 650 mg PO Q4 PRN PRN Reason: Fever >100.4 F Aspirin (Ecotrin) 81 mg PO DAILY [facility] Last Admin: 11/04/17 10:49 Dose: Not Given Digoxin (Lanoxin) 0.25 mg IVP 1400 [facility] Last Admin: 11/04/17 13:06 Dose: 0.25 mg Diltiazem HCl (Cardizem) 30 mg PO QID [facility] Last Admin: 11/05/17 13:37 Dose: Not Given diltiaZEM IVPB 100mg in NS (Cardizem 100mg In Ns) 100 mls @ 5 mls/hr IV .Q20H PRN; Protocol; 5 MG/HR PRN Reason: TITRATE PER MD ORDER Last Titration: 11/04/17 14:50 Dose: 0 mg/hr, 0 mls/hr Heparin Sodium/Sodium Chloride (Heparin 88295 Units/250ml 1/2 Normal Saline) 25 ,000 units in 250 mls @ 17.57 mls/hr IV .[id number] PRN; Protocol; 18 UNITS/KG/HR PRN Reason: ADJUST RATE PER PROTOCOL Last Admin: 11/03/17 16:44 Dose: 12 units/kg/hr, 11.714 mls/hr Meropenem (Merrem Iv 1 Gm Premix) 50 mls @ 100 mls/hr IVPB Q8 [facility] PRN Reason: Protocol Stop: 11/10/17 14:01 Last Admin: 11/05/17 13:42 Dose: 100 mls/hr Sodium Chloride (Sodium Chloride 0.9%) 1,000 mls @ 100 mls/hr IV .Q10H [facility] Last Admin: 11/04/17 22:52 Dose: 100 mls/hr Insulin Human Regular (Humulin R Low) 0 units SC ACHS [facility] PRN Reason: Protocol Last Admin: 11/05/17 11:30 Dose: Not Given Levalbuterol HCl (Xopenex) 0.63 mg IH TIDRESP [facility] Last Admin: 11/05/17 13:14 Dose: 0.63 mg Metoprolol Tartrate (Lopressor) 25 mg PO BID [facility] Last Admin: 11/05/17 09:13 Dose: 25 mg Metoprolol Tartrate (Lopressor) 5 mg IVP Q6H [facility] Last Admin: 11/05/17 10:56 Dose: Not Given Ondansetron HCl (Zofran Inj) 4 mg IVP Q6H PRN PRN Reason: Nausea/Vomiting Pantoprazole Sodium (Protonix Ec Tab) 40 mg PO 0600 [facility] - Labs Labs: 11/05/17 06:30 11/05/17 06:30 PT 11.3 SECONDS (9.4-12.5) 11/05/17 06:30 INR 0.98 (0.93-1.08) 11/05/17 06:30 APTT 65.8 Seconds (25.1-36.5) H 11/03/17 05:48 Attending/Attestation - Attestation I have personally seen and examined this patient.: Yes I have fully participated in the care of the patient.: Yes I have reviewed all pertinent clinical information, including history, physical exam and plan: Yes Notes (Text): 11/05/17 15:12 attending note; Patient seen and examined with resident in ICU. Patient's daughter by the bed side. 1. Patient is a 77-year-old lady admitted with abdominal pain. Found to have ascending cholangitis secondary to obstructed CBD stone. Status post ERCP and stent placement. Status post ERCP sphincterotomy and stone removal. Continue IV meropenem. Patient is afebrile and nontoxic today. 2. Atrial fibrillation with rapid A. fib; continue Cardizem drip and IV digoxin. started on po Cardizem and metoprolol. heparin drip on hold. troponin is trending down. 3. Elevated LFTs; secondary to obstructed CBD stone. Resolving after stent placement. 4. Elevated troponin; improving. Mostly secondary to demand ischemia. Continue aspirin. 5. Surgery evaluation appreciated. Plan for cholecystectomy today. Resume heparin after surgery. Patient needs long-term anticoagulation. We will get physical therapy evaluation. Currently patient has no insurance. showplace manager evaluation appreciated. The diagnosis, treatment option and outpatient follow-up discussed with patient' s daughter in detail by the bedside. Upon discharge the patient will be referred to [facility] clinic.
--- NOTE | 2017-11-05 14:27 | PN ---
DATE: 11/05/2017 SUBJECTIVE: The patient is seen lying in bed in the CCU. She is awaiting cholecystectomy later today. She is currently n.p.o. and her heparin has been placed on hold. CURRENT MEDICATIONS: Include diltiazem 30 mg q.i.d., digoxin 0.25 mg daily, metoprolol 25 mg b.i.d., meropenem, Protonix, Solu-Medrol 20 mg q.12 hours, Xopenex. OBJECTIVE: GENERAL: She is an obese elderly woman. VITAL SIGNS: Blood pressure is 166/90, with a pulse of 90 in atrial flutter, respirations are 14. She is afebrile. HEENT: No JVD. CHEST: Few scattered rhonchi. HEART: PMI displaced laterally with systolic murmur at the left sternal border. ABDOMEN: Soft, obese, with normoactive bowel sounds. EXTREMITIES: No edema. DIAGNOSTIC DATA: Potassium is 3.9, BUN and creatinine are 20 and 0.7, glucose 169. White count is 6.8, hemoglobin and hematocrit 13.8 and 41.6, with platelet count 265,000. IMPRESSION: 1. Persistent atrial flutter with adequate heart rate control. 2. Cholecystitis status post biliary stent, currently with plans for cholecystectomy later today. Borderline troponin elevation on admission in the setting of tachycardia likely not acute myocardial infarction. RECOMMENDATIONS: IV heparin can be resumed once felt safe by Surgery. IV metoprolol can be given while n.p.o. as needed for heart rate control. Eventual full anticoagulation will need to be resumed. Further plans as to the management of her atrial dysrhythmia will be addressed postoperatively. We will continue to follow and make further recommendations as appropriate. Manas Barahona MD
[2017-11-05] MEDS: Digoxin 500 mcg/2ml (0.5 mg/2ml) Inj IVP SCH (15:06)
[2017-11-05] MEDS: Sodium Chloride 0.9% 1,000 ML IV SCH (15:08)
[2017-11-05 15:13] VITALS: PULSE 99
[2017-11-05] MEDS ORDERED: Etomidate 20 mg/10ml Inj IV ONE (16:19)
[2017-11-05] MEDS ORDERED: Propofol 10 mg/ml Inj (20 ML) ONE (16:19)
[2017-11-05] MEDS ORDERED: Rocuronium 10 mg/ml (5 ml) ONE (16:43)
[2017-11-05] MEDS ORDERED: Succinylcholine 200 mg/10 ml Inj IV ONE (16:43)
[2017-11-05] MEDS ORDERED: HYDROmorphone 0.5 mg/0.5 ml ISec IVP ONE ×2 (18:00→19:40)
[2017-11-05] MEDS ORDERED: Labetalol 5 mg/ml Inj 20ML ONE (18:38)
[2017-11-05] MEDS ORDERED: Neostigmine Methylsulfate 3mg/3ml Syringe IV ONE (18:39)
[2017-11-05] MEDS ORDERED: Atropine 0.4 mg/ml Inj (1 mL) ONE (19:08)
[2017-11-05] MEDS ORDERED: HYDROmorphone 0.5 mg/0.5 ml ISec IVP PRN ×2 (19:21→19:26)
--- NOTE | 2017-11-05 19:22 | PCM.SURG1 ---
Surgeon's Initial Post Op Note - Surgeon's Notes Surgeon: Therese Electrical Technician Instructor: Marialuisa PGY3; Parag PGY1 Type of Anesthesia: General Endo, Local Anesthesia Administered By: Emily Pre-Operative Diagnosis: Cholelithiasis; Cholangitis Operative Findings: see operative report Post-Operative Diagnosis: same Operation Performed: Laparascopic Cholecystectomy Specimen/Specimens Removed: Gallbladder Estimated Blood Loss: EBL {In ML}: 150 Blood Products Given: N/A Drains Used: Sean Post-Op Condition: Good Date of Surgery/Procedure: 11/05/17 Time of Surgery/Procedure: 19:23
[2017-11-05] MEDS ORDERED: Oxycodone/Acetaminophen 5/325 mg Tab PO PRN (19:25)
[2017-11-05] MEDS ORDERED: Lactated Ringer's 1,000 ML IV SCH ×2 (19:30)
[2017-11-05] MEDS ORDERED: HYDROmorphone 0.5 mg/0.5 ml ISec ONE (19:57)
--- NOTE | 2017-11-05 20:15 | PN ---
DATE: 11/05/2017 SUBJECTIVE: Patient is in bed in no acute distress, nontoxic. PHYSICAL EXAMINATION: VITAL SIGNS: Temperature is 98, blood pressure is 150/60, respiratory rate 21, heart rate of 86. HEENT: Unremarkable. NECK: Supple. LUNGS: Have decreased breath sounds. HEART: Normal S1, S2. ABDOMEN: Soft, nontender. Laboratory examination reveals a white count of 6.8, hemoglobin of 13, and platelets of 265. Chemistries reveals a BUN of 20, creatinine of 0.7, procalcitonin of 0.9. Microbiology reveals the blood cultures are negative. Urine cultures are negative. ASSESSMENT/PLAN: This is a 77-year-old female in the coronary care unit who was seen earlier today with obesity, BMI of 31, who was admitted with severe sepsis secondary to ascending cholangitis, status post ERCP, placement of stent, removal of the stone, currently on meropenem. Patient for OR today and possible cholecystectomy. We will follow with you. Review of orders confirms the patient to be on meropenem which requires renewal, which I will do so. Price Holden MD
[2017-11-06] MEDS ORDERED: Lactated Ringer's 1,000 ML IV SCH (05:22)
[2017-11-06] MEDS: Metoprolol 1 mg/ml Inj IVP SCH (05:23)
[2017-11-06] MEDS: Meropenem IV 1 gm in NS 50 ML IVPB SCH ×3 (05:24→22:23)
[2017-11-06] MEDS: Pantoprazole 40 mg EC Tab PO SCH (05:31)
--- NOTE | 2017-11-06 07:31 | CP.PCM.PN ---
<Joni Gonzalez - Last Filed: 11/06/17 09:04> Subjective - Date & Time of Evaluation Date of Evaluation: 11/06/17 Time of Evaluation: 07:00 - Subjective Subjective: GI Progress note: Patient seen and examined at bedside. No acute events overnight. Pt is s/p Lap cholecystectomy yesterday. Denies any abdominal pain, nausea and vomiting at this time. No other complaints. 12 point review of systems performed, negative other than stated above. Objective - Vital Signs/Intake and Output Vital Signs (last 24 hours): Temp Pulse Resp BP Pulse Ox 97.9 F 73 13 152/72 H 98 11/06/17 04:00 11/06/17 06:40 11/06/17 06:40 11/06/17 06:00 11/06/17 06:40 Intake and Output: 11/06/17 11/06/17 06:59 18:59 Intake Total 1840 Output Total 190 Balance 1650 - Medications Medications: Current Medications Acetaminophen (Tylenol 325mg Tab) 650 mg PO Q4 PRN PRN Reason: Fever >100.4 F Aspirin (Ecotrin) 81 mg PO DAILY [facility] Last Admin: 11/04/17 10:49 Dose: Not Given Digoxin (Lanoxin) 0.25 mg IVP 1400 [facility] Last Admin: 11/05/17 15:06 Dose: 0.25 mg Diltiazem HCl (Cardizem) 30 mg PO QID [facility] Last Admin: 11/05/17 21:30 Dose: 30 mg Hydromorphone HCl (Dilaudid) 0.5 mg IVP Q6H PRN PRN Reason: Pain, moderate (4-7) Last Admin: 11/05/17 20:28 Dose: 0.5 mg diltiaZEM IVPB 100mg in NS (Cardizem 100mg In Ns) 100 mls @ 5 mls/hr IV .Q20H PRN; Protocol; 5 MG/HR PRN Reason: TITRATE PER MD ORDER Last Titration: 11/04/17 14:50 Dose: 0 mg/hr, 0 mls/hr Heparin Sodium/Sodium Chloride (Heparin 05823 Units/250ml 1/2 Normal Saline) 25 ,000 units in 250 mls @ 17.57 mls/hr IV .[id number] PRN; Protocol; 18 UNITS/KG/HR PRN Reason: ADJUST RATE PER PROTOCOL Last Admin: 11/03/17 16:44 Dose: 12 units/kg/hr, 11.714 mls/hr Meropenem (Merrem Iv 1 Gm Premix) 50 mls @ 100 mls/hr IVPB Q8 [facility] PRN Reason: Protocol Stop: 11/10/17 14:01 Last Admin: 11/06/17 05:24 Dose: 100 mls/hr Lactated Ringer's (Lactated Ringer's) 1,000 mls @ 150 mls/hr IV .Q6H40M [facility] Last Admin: 11/06/17 05:28 Dose: 150 mls/hr Insulin Human Regular (Humulin R Low) 0 units SC ACHS [facility] PRN Reason: Protocol Last Admin: 11/05/17 21:48 Dose: Not Given Levalbuterol HCl (Xopenex) 0.63 mg IH TIDRESP [facility] Last Admin: 11/05/17 20:25 Dose: 0.63 mg Metoprolol Tartrate (Lopressor) 25 mg PO BID [facility] Last Admin: 11/05/17 09:13 Dose: 25 mg Metoprolol Tartrate (Lopressor) 5 mg IVP Q6H [facility] Last Admin: 11/06/17 05:23 Dose: Not Given Ondansetron HCl (Zofran Inj) 4 mg IVP Q6H PRN PRN Reason: Nausea/Vomiting Oxycodone/Acetaminophen (Percocet 5/325 Mg Tab) 1 tab PO Q4H PRN PRN Reason: Pain, Mild (1-3) Stop: 11/08/17 19:26 Last Admin: 11/05/17 21:30 Dose: 1 tab Pantoprazole Sodium (Protonix Ec Tab) 40 mg PO 0600 [facility] Last Admin: 11/06/17 05:31 Dose: 40 mg - Labs Labs: 11/05/17 06:30 11/05/17 06:30 PT 11.3 SECONDS (9.4-12.5) 11/05/17 06:30 INR 0.98 (0.93-1.08) 11/05/17 06:30 APTT 65.8 Seconds (25.1-36.5) H 11/03/17 05:48 - Constitutional Appears: No Acute Distress - Head Exam Head Exam: ATRAUMATIC, NORMOCEPHALIC - Eye Exam Eye Exam: EOMI - ENT Exam ENT Exam: Mucous Membranes Moist - Respiratory Exam Respiratory Exam: Clear to Ausculation Bilateral. absent: Rales, Wheezes - Cardiovascular Exam Cardiovascular Exam: REGULAR RHYTHM, +S1, +S2 - GI/Abdominal Exam GI & Abdominal Exam: Soft. absent: Tenderness - Extremities Exam Extremities Exam: absent: Calf Tenderness - Neurological Exam Neurological Exam: Alert, Awake, Oriented x3 - Psychiatric Exam Psychiatric exam: Normal Affect, Normal Mood - Skin Skin Exam: Dry, Intact, Warm Assessment and Plan - Assessment and Plan (Free Text) Assessment: 77 F with pmh of HTN and obesity presents with abd pain, fevers, jaundice and confusion x 1 day, found to have acute cholangitis, choledocholithiasis s/p ERCP with stent placement POD 4, and now s/p ERCP with removal of stent, sphincterotomy and baboon extraction of stone POD 2. S/p Lap cholecystectomy POD 1. 1. Acute cholangitis 2. Choledocholithiasis s/p ERCP with stent placement and another ERCP with removal of stent, sphincterotomy and baboon extraction of stone 3. A-flutter 4. Obesity - Clear liquid diet as tolerated - continue to monitor LFTs- trending down - H/H stable - continue to monitor - Antibiotic therapy as per ID - Ingrid - Blood cultures negative - Follow up surgical team recs - F/u with cardiology recs - Thank you for the courtesy of the consult. Will sign off. Please reconsult as needed. Pt was seen and plan reviewed in detail with Dr Garcia. <Collin Garcia - Last Filed: 11/06/17 10:58> Objective - Vital Signs/Intake and Output Vital Signs (last 24 hours): Temp Pulse Resp BP Pulse Ox 97.9 F 79 13 151/75 H 98 11/06/17 04:00 11/06/17 09:28 11/06/17 06:40 11/06/17 09:28 11/06/17 06:40 Intake and Output: 11/06/17 11/06/17 06:59 18:59 Intake Total 1840 Output Total 190 Balance 1650 - Medications Medications: Current Medications Acetaminophen (Tylenol 325mg Tab) 650 mg PO Q4 PRN PRN Reason: Fever >100.4 F Aspirin (Ecotrin) 81 mg PO DAILY [facility] Last Admin: 11/06/17 09:27 Dose: 81 mg Diltiazem HCl (Cardizem) 30 mg PO QID [facility] Last Admin: 11/06/17 09:27 Dose: 30 mg Hydromorphone HCl (Dilaudid) 0.5 mg IVP Q6H PRN PRN Reason: Pain, moderate (4-7) Last Admin: 11/05/17 20:28 Dose: 0.5 mg Heparin Sodium/Sodium Chloride (Heparin 56564 Units/250ml 1/2 Normal Saline) 25 ,000 units in 250 mls @ 17.57 mls/hr IV .[id number] PRN; Protocol; 18 UNITS/KG/HR PRN Reason: ADJUST RATE PER PROTOCOL Last Admin: 11/03/17 16:44 Dose: 12 units/kg/hr, 11.714 mls/hr Meropenem (Merrem Iv 1 Gm Premix) 50 mls @ 100 mls/hr IVPB Q8 [facility] PRN Reason: Protocol Stop: 11/10/17 14:01 Last Admin: 11/06/17 05:24 Dose: 100 mls/hr Lactated Ringer's (Lactated Ringer's) 1,000 mls @ 150 mls/hr IV .Q6H40M [facility] Last Admin: 11/06/17 05:28 Dose: 150 mls/hr Insulin Human Regular (Humulin R Low) 0 units SC ACHS [facility] PRN Reason: Protocol Last Admin: 11/06/17 08:11 Dose: Not Given Levalbuterol HCl (Xopenex) 0.63 mg IH TIDRESP [facility] Last Admin: 11/06/17 08:23 Dose: 0.63 mg Metoprolol Tartrate (Lopressor) 25 mg PO BID [facility] Last Admin: 11/06/17 09:28 Dose: 25 mg Metoprolol Tartrate (Lopressor) 5 mg IVP Q6H PRN PRN Reason: SBP>180 or HR>120 Ondansetron HCl (Zofran Inj) 4 mg IVP Q6H PRN PRN Reason: Nausea/Vomiting Oxycodone/Acetaminophen (Percocet 5/325 Mg Tab) 1 tab PO Q4H PRN PRN Reason: Pain, Mild (1-3) Stop: 11/08/17 19:26 Last Admin: 11/05/17 21:30 Dose: 1 tab Pantoprazole Sodium (Protonix Ec Tab) 40 mg PO 0600 [facility] Last Admin: 11/06/17 05:31 Dose: 40 mg - Labs Labs: 11/06/17 06:00 11/06/17 06:00 PT 11.3 SECONDS (9.4-12.5) 11/05/17 06:30 INR 0.98 (0.93-1.08) 11/05/17 06:30 APTT 65.8 Seconds (25.1-36.5) H 11/03/17 05:48 Attending/Attestation - Attestation I have personally seen and examined this patient.: Yes I have fully participated in the care of the patient.: Yes I have reviewed all pertinent clinical information, including history, physical exam and plan: Yes Notes (Text): 11/06/17 10:56 77 year old female admitted with cholangitis due to gallstones now s/p ERCP with stone extraction and cholecystectomy. No apparent complications. Recommend 2 week course of antibiotics. No further GI intervention. Diet as tolerated. Will sign off.
[2017-11-06 07:45] LABS: ALBUMIN 2.9 g/dL (3.0-4.8); ALT/SGPT 125 U/L (7-56); AST/SGOT 92 U/L (14-36); BLOOD UREA NITROGEN 24 mg/dL (7-21); GFR AFRICAN-AMERICAN > 60; GFR NON-AFRICAN AMERICAN > 60
[2017-11-06 07:49] LABS: GRAN # 6.52 (1.4-6.5); GRAN % 73.5 % (50.0-68.0); HEMOGLOBIN 12.1 g/dL (12.0-16.0); LYMPH # 1.5 (1.2-3.4); MEAN CORPUSCULAR HEMOGLOBIN 28.9 pg (25.0-35.0); MEAN PLATELET VOLUME 9.9 fl (7.0-11.0); MONO # 0.8 (0.1-0.6); MONO % 9.5 % (1.0-6.0); RBC 4.19 10^6/uL (3.5-6.1); RED CELL DISTRIBUTION WIDTH 14.7 % (11.5-14.5); WHITE BLOOD COUNT 8.9 10^3/ul (4.5-11.0)
[2017-11-06 07:53] LABS: MEAN CELL VOLUME 90.2 fl (80.0-105.0)
--- NOTE | 2017-11-06 07:54 | CP.PCM.PN ---
Subjective - Date & Time of Evaluation Date of Evaluation: 11/06/17 Time of Evaluation: 07:00 - Subjective Subjective: Stable in CCU. S/P GB surgery yesterday. V/S note. A. Flutter, VR 70 - 100 BPM PE: Lungs: few rhonchi Cor.: irreg, S1S2 Abd.: soft Ext.: no edema Neuro.: alert I/Q=7638/540 Labs noted. BC x2 NG at 5 days ECG: A. Flut at 127 BPM, NSSTW chnages Objective - Vital Signs/Intake and Output Vital Signs (last 24 hours): Temp Pulse Resp BP Pulse Ox 97.9 F 73 13 152/72 H 98 11/06/17 04:00 11/06/17 06:40 11/06/17 06:40 11/06/17 06:00 11/06/17 06:40 Intake and Output: 11/06/17 11/06/17 06:59 18:59 Intake Total 1840 Output Total 190 Balance 1650 - Medications Medications: Current Medications Acetaminophen (Tylenol 325mg Tab) 650 mg PO Q4 PRN PRN Reason: Fever >100.4 F Aspirin (Ecotrin) 81 mg PO DAILY [facility] Last Admin: 11/04/17 10:49 Dose: Not Given Digoxin (Lanoxin) 0.25 mg IVP 1400 [facility] Last Admin: 11/05/17 15:06 Dose: 0.25 mg Diltiazem HCl (Cardizem) 30 mg PO QID [facility] Last Admin: 11/05/17 21:30 Dose: 30 mg Hydromorphone HCl (Dilaudid) 0.5 mg IVP Q6H PRN PRN Reason: Pain, moderate (4-7) Last Admin: 11/05/17 20:28 Dose: 0.5 mg diltiaZEM IVPB 100mg in NS (Cardizem 100mg In Ns) 100 mls @ 5 mls/hr IV .Q20H PRN; Protocol; 5 MG/HR PRN Reason: TITRATE PER MD ORDER Last Titration: 11/04/17 14:50 Dose: 0 mg/hr, 0 mls/hr Heparin Sodium/Sodium Chloride (Heparin 88845 Units/250ml 1/2 Normal Saline) 25 ,000 units in 250 mls @ 17.57 mls/hr IV .[id number] PRN; Protocol; 18 UNITS/KG/HR PRN Reason: ADJUST RATE PER PROTOCOL Last Admin: 11/03/17 16:44 Dose: 12 units/kg/hr, 11.714 mls/hr Meropenem (Merrem Iv 1 Gm Premix) 50 mls @ 100 mls/hr IVPB Q8 [facility] PRN Reason: Protocol Stop: 11/10/17 14:01 Last Admin: 11/06/17 05:24 Dose: 100 mls/hr Lactated Ringer's (Lactated Ringer's) 1,000 mls @ 150 mls/hr IV .Q6H40M [facility] Last Admin: 11/06/17 05:28 Dose: 150 mls/hr Insulin Human Regular (Humulin R Low) 0 units SC ACHS [facility] PRN Reason: Protocol Last Admin: 11/05/17 21:48 Dose: Not Given Levalbuterol HCl (Xopenex) 0.63 mg IH TIDRESP [facility] Last Admin: 11/05/17 20:25 Dose: 0.63 mg Metoprolol Tartrate (Lopressor) 25 mg PO BID [facility] Last Admin: 11/05/17 09:13 Dose: 25 mg Metoprolol Tartrate (Lopressor) 5 mg IVP Q6H [facility] Last Admin: 11/06/17 05:23 Dose: Not Given Ondansetron HCl (Zofran Inj) 4 mg IVP Q6H PRN PRN Reason: Nausea/Vomiting Oxycodone/Acetaminophen (Percocet 5/325 Mg Tab) 1 tab PO Q4H PRN PRN Reason: Pain, Mild (1-3) Stop: 11/08/17 19:26 Last Admin: 11/05/17 21:30 Dose: 1 tab Pantoprazole Sodium (Protonix Ec Tab) 40 mg PO 0600 [facility] Last Admin: 11/06/17 05:31 Dose: 40 mg - Labs Labs: 11/05/17 06:30 11/06/17 06:00 PT 11.3 SECONDS (9.4-12.5) 11/05/17 06:30 INR 0.98 (0.93-1.08) 11/05/17 06:30 APTT 65.8 Seconds (25.1-36.5) H 11/03/17 05:48 Assessment and Plan - Assessment and Plan (Free Text) Assessment: Multiple GI sxs with fever, jaundice AMS Gall Stones/Acute Cholecystitis Sepsis S/P biliary stent S/P Lap. Cholecystectomy Mildly + troponon level/doubt acute [place] A. Flutter Plan: Resume IV heparin when cleared by surgery Rate controll with diltiazem and metoprolol for now. As per GI and surgery and intensivists AB. As per ID Monitor: labs, I/O, sats., cultures, LFT's, PTT's etc. Will follow.
[2017-11-06] MEDS: Insulin Reg-LOW-Coverage SC SCH ×5 (08:11→22:38)
[2017-11-06] MEDS: Levalbuterol 0.63 MG/3 ML Inhal Soln UD IH SCH ×3 (08:23→20:11)
[2017-11-06] MEDS ORDERED: Metoprolol 1 mg/ml Inj IVP PRN (09:03)
--- NOTE | 2017-11-06 11:34 | CP.PCM.PN ---
<Carmen Elam - Last Filed: 11/06/17 11:30> Subjective - Date & Time of Evaluation Date of Evaluation: 11/06/17 Time of Evaluation: 07:00 - Subjective Subjective: Surgery: Dr. Saleh Pt seen and examined. No acute overnight events. States her pain is well controlled. Tolerating liquids. Denies any N/V, F/C. Objective - Vital Signs/Intake and Output Vital Signs (last 24 hours): Temp Pulse Resp BP Pulse Ox 97.9 F 79 13 151/75 H 98 11/06/17 04:00 11/06/17 09:28 11/06/17 06:40 11/06/17 09:28 11/06/17 06:40 Intake and Output: 11/06/17 11/06/17 06:59 18:59 Intake Total 1840 Output Total 190 Balance 1650 - Medications Medications: Current Medications Acetaminophen (Tylenol 325mg Tab) 650 mg PO Q4 PRN PRN Reason: Fever >100.4 F Aspirin (Ecotrin) 81 mg PO DAILY [facility] Last Admin: 11/06/17 09:27 Dose: 81 mg Diltiazem HCl (Cardizem) 30 mg PO QID [facility] Last Admin: 11/06/17 09:27 Dose: 30 mg Hydromorphone HCl (Dilaudid) 0.5 mg IVP Q6H PRN PRN Reason: Pain, moderate (4-7) Last Admin: 11/05/17 20:28 Dose: 0.5 mg Heparin Sodium/Sodium Chloride (Heparin 52780 Units/250ml 1/2 Normal Saline) 25 ,000 units in 250 mls @ 17.57 mls/hr IV .[id number] PRN; Protocol; 18 UNITS/KG/HR PRN Reason: ADJUST RATE PER PROTOCOL Last Admin: 11/03/17 16:44 Dose: 12 units/kg/hr, 11.714 mls/hr Meropenem (Merrem Iv 1 Gm Premix) 50 mls @ 100 mls/hr IVPB Q8 [facility] PRN Reason: Protocol Stop: 11/10/17 14:01 Last Admin: 11/06/17 05:24 Dose: 100 mls/hr Lactated Ringer's (Lactated Ringer's) 1,000 mls @ 150 mls/hr IV .Q6H40M [facility] Last Admin: 11/06/17 05:28 Dose: 150 mls/hr Insulin Human Regular (Humulin R Low) 0 units SC ACHS [facility] PRN Reason: Protocol Last Admin: 11/06/17 08:11 Dose: Not Given Levalbuterol HCl (Xopenex) 0.63 mg IH TIDRESP [facility] Last Admin: 11/06/17 08:23 Dose: 0.63 mg Metoprolol Tartrate (Lopressor) 25 mg PO BID [facility] Last Admin: 11/06/17 09:28 Dose: 25 mg Metoprolol Tartrate (Lopressor) 5 mg IVP Q6H PRN PRN Reason: SBP>180 or HR>120 Ondansetron HCl (Zofran Inj) 4 mg IVP Q6H PRN PRN Reason: Nausea/Vomiting Oxycodone/Acetaminophen (Percocet 5/325 Mg Tab) 1 tab PO Q4H PRN PRN Reason: Pain, Mild (1-3) Stop: 11/08/17 19:26 Last Admin: 11/05/17 21:30 Dose: 1 tab Pantoprazole Sodium (Protonix Ec Tab) 40 mg PO 0600 [facility] Last Admin: 11/06/17 05:31 Dose: 40 mg - Labs Labs: 11/06/17 06:00 11/06/17 06:00 PT 11.3 SECONDS (9.4-12.5) 11/05/17 06:30 INR 0.98 (0.93-1.08) 11/05/17 06:30 APTT 65.8 Seconds (25.1-36.5) H 11/03/17 05:48 - Constitutional Appears: Well, No Acute Distress - Head Exam Head Exam: ATRAUMATIC, NORMOCEPHALIC - Eye Exam Eye Exam: Normal appearance - ENT Exam ENT Exam: Mucous Membranes Moist - Respiratory Exam Respiratory Exam: NORMAL BREATHING PATTERN - Cardiovascular Exam Cardiovascular Exam: RRR - GI/Abdominal Exam GI & Abdominal Exam: Soft. absent: Distended, Guarding, Tenderness Additional comments: Incisions with dressings C/D/I - Neurological Exam Neurological Exam: Alert, Awake, Oriented x3 - Skin Skin Exam: Dry, Warm Assessment and Plan - Assessment and Plan (Free Text) Assessment: 77F s/p lap elda; POD#1 Plan: - advance diet as tolerated - encourage out of bed to chair/ambulation - encourage IS - pain control - monitor UOP; wean fluids accordingly - d/w Dr. Therese Elam, PGY-3 Surgery <Nathen Saleh - Last Filed: 11/08/17 21:04> Objective - Vital Signs/Intake and Output Vital Signs (last 24 hours): Temp Pulse Resp BP Pulse Ox 97.9 F 85 27 H 132/64 92 L 11/08/17 12:00 11/08/17 14:20 11/08/17 14:20 11/08/17 13:00 11/08/17 14:20 Intake and Output: 11/08/17 11/09/17 18:59 06:59 Intake Total 120 Balance 120 - Labs Labs: 11/08/17 05:30 11/08/17 05:30 PT 11.3 SECONDS (9.4-12.5) 11/05/17 06:30 INR 0.98 (0.93-1.08) 11/05/17 06:30 APTT 58.5 Seconds (25.1-36.5) H 11/08/17 09:20 Attending/Attestation - Attestation I have personally seen and examined this patient.: Yes I have fully participated in the care of the patient.: Yes I have reviewed all pertinent clinical information, including history, physical exam and plan: Yes Notes (Text): Pt was seen and examined at bedside Agree with above note and assessment Pt is doing well C.w IV antibiotics Low fat diet Plan d.w pt in detail
[2017-11-06] MEDS: Lactated Ringer's 1,000 ML IV SCH (14:21)
--- NOTE | 2017-11-06 14:21 | CP.PCM.PN ---
<Raiza Purdy - Last Filed: 11/06/17 14:17> Subjective - Date & Time of Evaluation Date of Evaluation: 11/06/17 Time of Evaluation: 07:30 - Subjective Subjective: Raiza Purdy DO PGY1 - Internal Medicine Progress Note Patient seen and examined at bedside. Nurse reports no acute events overnight. She is s/p cholecystectomy yesterday. She feels well today, and denies any abdominal pain or fever. She denies any SOB, CP, nausea, vomiting, diarrhea, constipation, chills. Objective - Vital Signs/Intake and Output Vital Signs (last 24 hours): Temp Pulse Resp BP Pulse Ox 97.9 F 74 20 131/63 99 11/06/17 04:00 11/06/17 13:20 11/06/17 13:00 11/06/17 13:00 11/06/17 10:40 Intake and Output: 11/06/17 11/06/17 06:59 18:59 Intake Total 1840 Output Total 190 Balance 1650 - Medications Medications: Current Medications Acetaminophen (Tylenol 325mg Tab) 650 mg PO Q4 PRN PRN Reason: Fever >100.4 F Aspirin (Ecotrin) 81 mg PO DAILY [facility] Last Admin: 11/06/17 09:27 Dose: 81 mg Diltiazem HCl (Cardizem) 30 mg PO QID [facility] Last Admin: 11/06/17 09:27 Dose: 30 mg Hydromorphone HCl (Dilaudid) 0.5 mg IVP Q6H PRN PRN Reason: Pain, moderate (4-7) Last Admin: 11/05/17 20:28 Dose: 0.5 mg Heparin Sodium/Sodium Chloride (Heparin 90344 Units/250ml 1/2 Normal Saline) 25 ,000 units in 250 mls @ 17.57 mls/hr IV .[id number] PRN; Protocol; 18 UNITS/KG/HR PRN Reason: ADJUST RATE PER PROTOCOL Last Admin: 11/03/17 16:44 Dose: 12 units/kg/hr, 11.714 mls/hr Meropenem (Merrem Iv 1 Gm Premix) 50 mls @ 100 mls/hr IVPB Q8 [facility] PRN Reason: Protocol Stop: 11/10/17 14:01 Last Admin: 11/06/17 05:24 Dose: 100 mls/hr Lactated Ringer's (Lactated Ringer's) 1,000 mls @ 75 mls/hr IV .[id number] [facility] Insulin Human Regular (Humulin R Low) 0 units SC ACHS [facility] PRN Reason: Protocol Last Admin: 11/06/17 12:25 Dose: 1 units Levalbuterol HCl (Xopenex) 0.63 mg IH TIDRESP [facility] Last Admin: 11/06/17 12:59 Dose: 0.63 mg Metoprolol Tartrate (Lopressor) 25 mg PO BID [facility] Last Admin: 11/06/17 09:28 Dose: 25 mg Metoprolol Tartrate (Lopressor) 5 mg IVP Q6H PRN PRN Reason: SBP>180 or HR>120 Ondansetron HCl (Zofran Inj) 4 mg IVP Q6H PRN PRN Reason: Nausea/Vomiting Oxycodone/Acetaminophen (Percocet 5/325 Mg Tab) 1 tab PO Q4H PRN PRN Reason: Pain, Mild (1-3) Stop: 11/08/17 19:26 Last Admin: 11/05/17 21:30 Dose: 1 tab Pantoprazole Sodium (Protonix Ec Tab) 40 mg PO 0600 [facility] Last Admin: 11/06/17 05:31 Dose: 40 mg - Labs Labs: 11/06/17 06:00 11/06/17 06:00 PT 11.3 SECONDS (9.4-12.5) 11/05/17 06:30 INR 0.98 (0.93-1.08) 11/05/17 06:30 APTT 65.8 Seconds (25.1-36.5) H 11/03/17 05:48 - Constitutional Appears: Non-toxic, No Acute Distress - Head Exam Head Exam: ATRAUMATIC, NORMOCEPHALIC - Eye Exam Eye Exam: EOMI, Normal appearance - ENT Exam ENT Exam: Mucous Membranes Moist, Normal Exam - Respiratory Exam Respiratory Exam: Clear to Ausculation Bilateral, NORMAL BREATHING PATTERN - Cardiovascular Exam Cardiovascular Exam: Irregular Rhythm, +S1, +S2. absent: Tachycardia - GI/Abdominal Exam GI & Abdominal Exam: Soft, Normal Bowel Sounds Additional comments: 3 incisions appear clean, dry, and intact. ALLYSSA drain in place, with serosanguinous fluid - Extremities Exam Extremities Exam: absent: Calf Tenderness, Pedal Edema - Neurological Exam Neurological Exam: Alert, Awake, Oriented x3 - Psychiatric Exam Psychiatric exam: Normal Affect, Normal Mood - Skin Skin Exam: Dry, Normal Color Assessment and Plan - Assessment and Plan (Free Text) Assessment: 77yo German female with no PMHx presented with daughter to [facility] on 10/31 for AMS and abdominal pain; also with new onset atrial fibrillation and now s/p ERCP for cholangitis and repeat ERCP with sphincterotomy and sweep Plan: Altered Mental Status -resolved -likely secondary to fever, now resolved Cholangitis, choledocolithiasis, cholelithiasis -Patient initially presented in septic shock secondary to acute cholangitis, now resolved -MRCP: 12mm stone in distal CBD and multiple gallstones -s/p ERCP with stent placement; repeat ERCP yesterday done with sphincterotomy and sweep -Patient is scheduled for cholecystectomy today at noon -Transaminitis downtrending -PRN Tylenol for fever -Merrem 1gm ivpb q8 Day 6 -Zofran for nausea -GI: Dr Petersen consulted -GI: Dr Garcia consulted -ID: Dr Holden consulted Aflutter -currently rate controlled -Continue PO cardizem and metoprolol; continue PRN IV metoprolol -Discontinue digoxin -ASA 81mg po qd -Chadsvasc 3, Hasbled 1 -Currently holding anticoagulation postoperatively; will monitor H&H and for signs of bleeding, as well as drain output prior to starting anticoagulation again -Echo shows LVEF 59% -Cardio: Dr. 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 Zhu <Magen Zhu - Last Filed: 11/06/17 16:21> Objective - Vital Signs/Intake and Output Vital Signs (last 24 hours): Temp Pulse Resp BP Pulse Ox 97.9 F 73 20 144/70 99 11/06/17 04:00 11/06/17 14:19 11/06/17 13:00 11/06/17 14:19 11/06/17 10:40 Intake and Output: 11/06/17 11/06/17 06:59 18:59 Intake Total 1840 Output Total 190 Balance 1650 - Medications Medications: Current Medications Acetaminophen (Tylenol 325mg Tab) 650 mg PO Q4 PRN PRN Reason: Fever >100.4 F Aspirin (Ecotrin) 81 mg PO DAILY [facility] Last Admin: 11/06/17 09:27 Dose: 81 mg Diltiazem HCl (Cardizem) 30 mg PO QID [facility] Last Admin: 11/06/17 14:19 Dose: 30 mg Hydromorphone HCl (Dilaudid) 0.5 mg IVP Q6H PRN PRN Reason: Pain, moderate (4-7) Last Admin: 11/05/17 20:28 Dose: 0.5 mg Heparin Sodium/Sodium Chloride (Heparin 42071 Units/250ml 1/2 Normal Saline) 25 ,000 units in 250 mls @ 17.57 mls/hr IV .[id number] PRN; Protocol; 18 UNITS/KG/HR PRN Reason: ADJUST RATE PER PROTOCOL Last Admin: 11/03/17 16:44 Dose: 12 units/kg/hr, 11.714 mls/hr Meropenem (Merrem Iv 1 Gm Premix) 50 mls @ 100 mls/hr IVPB Q8 [facility] PRN Reason: Protocol Stop: 11/10/17 14:01 Last Admin: 11/06/17 14:23 Dose: 100 mls/hr Lactated Ringer's (Lactated Ringer's) 1,000 mls @ 75 mls/hr IV .[id number] [facility] Last Admin: 11/06/17 14:21 Dose: 75 mls/hr Insulin Human Regular (Humulin R Low) 0 units SC ACHS [facility] PRN Reason: Protocol Last Admin: 11/06/17 12:25 Dose: 1 units Levalbuterol HCl (Xopenex) 0.63 mg IH TIDRESP [facility] Last Admin: 11/06/17 12:59 Dose: 0.63 mg Methylprednisolone (Medrol) 8 mg PO TID [facility] PRN Reason: Taper Stop: 11/12/17 10:44 Metoprolol Tartrate (Lopressor) 25 mg PO BID [facility] Last Admin: 11/06/17 09:28 Dose: 25 mg Metoprolol Tartrate (Lopressor) 5 mg IVP Q6H PRN PRN Reason: SBP>180 or HR>120 Ondansetron HCl (Zofran Inj) 4 mg IVP Q6H PRN PRN Reason: Nausea/Vomiting Oxycodone/Acetaminophen (Percocet 5/325 Mg Tab) 1 tab PO Q4H PRN PRN Reason: Pain, Mild (1-3) Stop: 11/08/17 19:26 Last Admin: 11/05/17 21:30 Dose: 1 tab Pantoprazole Sodium (Protonix Ec Tab) 40 mg PO 0600 CHARI Last Admin: 11/06/17 05:31 Dose: 40 mg - Labs Labs: 11/06/17 06:00 11/06/17 06:00 PT 11.3 SECONDS (9.4-12.5) 11/05/17 06:30 INR 0.98 (0.93-1.08) 11/05/17 06:30 APTT 65.8 Seconds (25.1-36.5) H 11/03/17 05:48 Attending/Attestation - Attestation I have personally seen and examined this patient.: Yes I have fully participated in the care of the patient.: Yes I have reviewed all pertinent clinical information, including history, physical exam and plan: Yes Notes (Text): 11/06/17 16:15 Patient was seen and examined with medical lab director. 77 yrs old [place] female was admitted on 10/31 for AMS and abdominal pain; was found to cholangitis and also new onset atrial fibrillation Patient is s/p ERCP for cholangitis and repeat ERCP with sphincterotomy and sweep,Patient underwent cholycystectomy yesterday, remain stable after surgery.LFT are coming down. AF , rate s controlled, need to restart anticoagulation in 24 hour as per surgery
--- NOTE | 2017-11-06 21:59 | PN ---
DATE: SUBJECTIVE: Patient is seen earlier this morning in 129, bed 2. She is doing well. No nausea. No vomiting. No chills. PHYSICAL EXAMINATION: VITAL SIGNS: Temperature is 97, blood pressure is 160/80, respiratory rate of 18, heart rate of 75. HEENT: Unremarkable. NECK: Supple. LUNGS: Decreased breath sounds. HEART: Normal S1, S2. ABDOMEN: Soft. LABORATORY EXAMINATION: Reveals a white count of 8.9, hemoglobin of 12, platelets of 252. Chemistries revealed a BUN of 24, creatinine of 0.7, procalcitonin is elevated at 0.9. Urinalysis is noted. HIV is negative. Microbiology reveals the cultures are negative. Urine cultures are negative. ASSESSMENT AND PLAN: This is a 77-year-old female who was seen earlier today in the coronary care unit seen with obesity, BMI of 31, admitted with severe sepsis secondary to ascending cholangitis, status post endoscopic retrograde cholangiopancreatography, placement of stent, removal of stone, and patient had laparoscopic cholecystectomy. Today is postprocedure day #1. Patient is doing well. Dr. Garcia's note is reviewed. Patient had a second endoscopic retrograde cholangiopancreatography with removal of the stent and sphincterotomy and balloon extraction of the stone, and now laparoscopic cholecystectomy. Microbiology, cultures are negative. White count is normal. Patient is afebrile. Currently on meropenem. Price Holden MD
[2017-11-07] MEDS: Meropenem IV 1 gm in NS 50 ML IVPB SCH ×3 (05:19→21:28)
[2017-11-07] MEDS: Lactated Ringer's 1,000 ML IV SCH (05:20)
[2017-11-07] MEDS: Pantoprazole 40 mg EC Tab PO SCH (05:20)
[2017-11-07 07:05] LABS: EOS % 0.2 % (1.5-5.0); GRAN # 3.79 (1.4-6.5); GRAN % 60.1 % (50.0-68.0); HEMOGLOBIN 12.8 g/dL (12.0-16.0); LYMPH # 1.8 (1.2-3.4); LYMPH % 28.4 % (22.0-35.0); MEAN CELL VOLUME 90.7 fl (80.0-105.0); MEAN CORPUSCULAR HEMOGLOBIN 28.4 pg (25.0-35.0); MEAN CORPUSCULAR HGB CONC 31.3 g/dl (31.0-37.0); MEAN PLATELET VOLUME 10.4 fl (7.0-11.0); MONO # 0.7 (0.1-0.6); MONO % 11.3 % (1.0-6.0); RBC 4.51 10^6/uL (3.5-6.1); RED CELL DISTRIBUTION WIDTH 14.8 % (11.5-14.5); WHITE BLOOD COUNT 6.3 10^3/ul (4.5-11.0)
[2017-11-07 07:11] LABS: MAGNESIUM 1.8 mg/dL (1.7-2.2)
[2017-11-07 07:41] LABS: ALBUMIN 3.1 g/dL (3.0-4.8); ALT/SGPT 108 U/L (7-56); AST/SGOT 80 U/L (14-36); BLOOD UREA NITROGEN 13 mg/dL (7-21); CALCIUM 9.2 mg/dL (8.4-10.5); GFR AFRICAN-AMERICAN > 60; GFR NON-AFRICAN AMERICAN > 60
[2017-11-07] MEDS: Levalbuterol 0.63 MG/3 ML Inhal Soln UD IH SCH ×3 (07:45→21:30)
--- NOTE | 2017-11-07 07:54 | CP.PCM.PN ---
Subjective - Date & Time of Evaluation Date of Evaluation: 11/07/17 Time of Evaluation: 07:00 - Subjective Subjective: Stable in CCU. S/P GB surgery. Doing well. Tolerating diet. V/S note. A. Flutter, VR 70 - 100 BPM PE: Lungs: few rhonchi Cor.: irreg, S1S2 Abd.: soft Ext.: no edema Neuro.: alert I/B=[id number] Labs 11/06 noted. BC x2 NG at 5 days ECG: A. Flut at 127 BPM, NSSTW chnages Objective - Vital Signs/Intake and Output Vital Signs (last 24 hours): Temp Pulse Resp BP Pulse Ox 98.0 F 79 20 159/85 H 97 11/07/17 06:00 11/07/17 06:00 11/07/17 06:00 11/07/17 06:00 11/07/17 06:00 Intake and Output: 11/07/17 11/07/17 06:59 18:59 Intake Total 1140 Output Total 2270 Balance -1130 - Medications Medications: Current Medications Acetaminophen (Tylenol 325mg Tab) 650 mg PO Q4 PRN PRN Reason: Fever >100.4 F Aspirin (Ecotrin) 81 mg PO DAILY [facility] Last Admin: 11/06/17 09:27 Dose: 81 mg Diltiazem HCl (Cardizem) 30 mg PO QID [facility] Last Admin: 11/06/17 22:24 Dose: 30 mg Hydromorphone HCl (Dilaudid) 0.5 mg IVP Q6H PRN PRN Reason: Pain, moderate (4-7) Last Admin: 11/05/17 20:28 Dose: 0.5 mg Heparin Sodium/Sodium Chloride (Heparin 29737 Units/250ml 1/2 Normal Saline) 25 ,000 units in 250 mls @ 17.57 mls/hr IV .[id number] PRN; Protocol; 18 UNITS/KG/HR PRN Reason: ADJUST RATE PER PROTOCOL Last Admin: 11/03/17 16:44 Dose: 12 units/kg/hr, 11.714 mls/hr Meropenem (Merrem Iv 1 Gm Premix) 50 mls @ 100 mls/hr IVPB Q8 [facility] PRN Reason: Protocol Stop: 11/10/17 14:01 Last Admin: 11/07/17 05:19 Dose: 100 mls/hr Lactated Ringer's (Lactated Ringer's) 1,000 mls @ 75 mls/hr IV .[id number] [facility] Last Admin: 11/07/17 05:20 Dose: 75 mls/hr Insulin Human Regular (Humulin R Low) 0 units SC ACHS [facility] PRN Reason: Protocol Last Admin: 11/06/17 22:38 Dose: Not Given Levalbuterol HCl (Xopenex) 0.63 mg IH TIDRESP [facility] Last Admin: 11/06/17 20:11 Dose: 0.63 mg Methylprednisolone (Medrol) 8 mg PO TID [facility] PRN Reason: Taper Stop: 11/12/17 10:44 Metoprolol Tartrate (Lopressor) 25 mg PO BID [facility] Last Admin: 11/06/17 18:09 Dose: 25 mg Metoprolol Tartrate (Lopressor) 5 mg IVP Q6H PRN PRN Reason: SBP>180 or HR>120 Ondansetron HCl (Zofran Inj) 4 mg IVP Q6H PRN PRN Reason: Nausea/Vomiting Oxycodone/Acetaminophen (Percocet 5/325 Mg Tab) 1 tab PO Q4H PRN PRN Reason: Pain, Mild (1-3) Stop: 11/08/17 19:26 Last Admin: 11/05/17 21:30 Dose: 1 tab Pantoprazole Sodium (Protonix Ec Tab) 40 mg PO 0600 [facility] Last Admin: 11/07/17 05:20 Dose: 40 mg - Labs Labs: 11/07/17 05:40 11/07/17 05:40 PT 11.3 SECONDS (9.4-12.5) 11/05/17 06:30 INR 0.98 (0.93-1.08) 11/05/17 06:30 APTT 65.8 Seconds (25.1-36.5) H 11/03/17 05:48 Assessment and Plan - Assessment and Plan (Free Text) Assessment: Multiple GI sxs with fever, jaundice AMS Gall Stones/Acute Cholecystitis Sepsis S/P biliary stent S/P Lap. Cholecystectomy Mildly + troponon level/doubt acute ID A. Flutter Plan: Resume IV heparin when cleared by surgery: today Rate controll with diltiazem and metoprolol for now. As per GI and surgery and ID Monitor: labs, I/O, sats., cultures, LFT's, PTT's etc. Tel bed soon Will follow.
[2017-11-07] MEDS: Insulin Reg-LOW-Coverage SC SCH ×3 (09:02→17:43)
--- NOTE | 2017-11-07 09:54 | CP.PCM.PN ---
<Carmen Elam - Last Filed: 11/07/17 09:50> Subjective - Date & Time of Evaluation Date of Evaluation: 11/07/17 Time of Evaluation: 07:00 - Subjective Subjective: Surgery: Dr. Saleh Pt seen and examined. No acute overnight events. States she feels well and denies abdominal pain. Pt is tolerating soft diet and denies N/V, F/C. Objective - Vital Signs/Intake and Output Vital Signs (last 24 hours): Temp Pulse Resp BP Pulse Ox 98.0 F 145 H 20 159/85 H 97 11/07/17 06:00 11/07/17 09:09 11/07/17 06:00 11/07/17 06:00 11/07/17 06:00 Intake and Output: 11/07/17 11/07/17 06:59 18:59 Intake Total 1140 Output Total 2270 Balance -1130 - Medications Medications: Current Medications Acetaminophen (Tylenol 325mg Tab) 650 mg PO Q4 PRN PRN Reason: Fever >100.4 F Aspirin (Ecotrin) 81 mg PO DAILY [facility] Last Admin: 11/07/17 09:08 Dose: 81 mg Diltiazem HCl (Cardizem) 60 mg PO QID [facility] Hydromorphone HCl (Dilaudid) 0.5 mg IVP Q6H PRN PRN Reason: Pain, moderate (4-7) Last Admin: 11/05/17 20:28 Dose: 0.5 mg Heparin Sodium/Sodium Chloride (Heparin 88085 Units/250ml 1/2 Normal Saline) 25 ,000 units in 250 mls @ 17.57 mls/hr IV .[id number] PRN; Protocol; 18 UNITS/KG/HR PRN Reason: ADJUST RATE PER PROTOCOL Last Admin: 11/03/17 16:44 Dose: 12 units/kg/hr, 11.714 mls/hr Meropenem (Merrem Iv 1 Gm Premix) 50 mls @ 100 mls/hr IVPB Q8 [facility] PRN Reason: Protocol Stop: 11/10/17 14:01 Last Admin: 11/07/17 05:19 Dose: 100 mls/hr Insulin Human Regular (Humulin R Low) 0 units SC ACHS [facility] PRN Reason: Protocol Last Admin: 11/07/17 09:02 Dose: Not Given Levalbuterol HCl (Xopenex) 0.63 mg IH TIDRESP [facility] Last Admin: 11/07/17 07:45 Dose: 0.63 mg Methylprednisolone (Medrol) 8 mg PO TID [facility] PRN Reason: Taper Stop: 11/12/17 10:44 Last Admin: 11/07/17 09:08 Dose: 8 mg Metoprolol Tartrate (Lopressor) 5 mg IVP Q6H PRN PRN Reason: SBP>180 or HR>120 Metoprolol Tartrate (Lopressor) 50 mg PO BID [facility] Ondansetron HCl (Zofran Inj) 4 mg IVP Q6H PRN PRN Reason: Nausea/Vomiting Oxycodone/Acetaminophen (Percocet 5/325 Mg Tab) 1 tab PO Q4H PRN PRN Reason: Pain, Mild (1-3) Stop: 11/08/17 19:26 Last Admin: 11/05/17 21:30 Dose: 1 tab Pantoprazole Sodium (Protonix Ec Tab) 40 mg PO 0600 [facility] Last Admin: 11/07/17 05:20 Dose: 40 mg - Labs Labs: 11/07/17 05:40 11/07/17 05:40 PT 11.3 SECONDS (9.4-12.5) 11/05/17 06:30 INR 0.98 (0.93-1.08) 11/05/17 06:30 APTT 65.8 Seconds (25.1-36.5) H 11/03/17 05:48 - Constitutional Appears: Well, No Acute Distress - Head Exam Head Exam: ATRAUMATIC, NORMOCEPHALIC - ENT Exam ENT Exam: Mucous Membranes Moist - Respiratory Exam Respiratory Exam: NORMAL BREATHING PATTERN - Cardiovascular Exam Cardiovascular Exam: Tachycardia - GI/Abdominal Exam GI & Abdominal Exam: Soft. absent: Distended, Guarding, Tenderness - Extremities Exam Extremities Exam: absent: Tenderness - Neurological Exam Neurological Exam: Alert, Awake, Oriented x3 - Skin Skin Exam: Dry, Warm Assessment and Plan - Assessment and Plan (Free Text) Assessment: 77F s/p lap cholecystectomy; POD#2 Plan: - ok to DC from surgical standpoint - Keep drain in upon discharge, will be removed in the office upon follow up with Dr. Saleh - encourage ambulation - d/w Dr. Therese Elam, PGY-3 Surgery <Nathen Saleh - Last Filed: 11/08/17 21:05> Objective - Vital Signs/Intake and Output Vital Signs (last 24 hours): Temp Pulse Resp BP Pulse Ox 97.9 F 85 27 H 132/64 92 L 11/08/17 12:00 11/08/17 14:20 11/08/17 14:20 11/08/17 13:00 11/08/17 14:20 Intake and Output: 11/08/17 11/09/17 18:59 06:59 Intake Total 120 Balance 120 - Labs Labs: 11/08/17 05:30 11/08/17 05:30 PT 11.3 SECONDS (9.4-12.5) 11/05/17 06:30 INR 0.98 (0.93-1.08) 11/05/17 06:30 APTT 58.5 Seconds (25.1-36.5) H 11/08/17 09:20 Attending/Attestation - Attestation I have fully participated in the care of the patient.: Yes I have reviewed all pertinent clinical information, including history, physical exam and plan: Yes Notes (Text): Pt is tolerating diet c/w current mx as per ICU team DC plan
--- NOTE | 2017-11-07 10:27 | CP.PCM.PN ---
Subjective - Date & Time of Evaluation Date of Evaluation: 11/07/17 Time of Evaluation: 09:50 - Subjective Subjective: Patient is still on a liquid diet but no nausea or diarrhea, no fevers overnight , no abdominal pain currently. Objective - Vital Signs/Intake and Output Vital Signs (last 24 hours): Temp Pulse Resp BP Pulse Ox 98.0 F 79 20 159/85 H 97 11/07/17 06:00 11/07/17 06:00 11/07/17 06:00 11/07/17 06:00 11/07/17 06:00 Intake and Output: 11/06/17 11/07/17 18:59 06:59 Intake Total 1350 1140 Output Total 1860 2270 Balance -510 -1130 - Medications Medications: Current Medications Acetaminophen (Tylenol 325mg Tab) 650 mg PO Q4 PRN PRN Reason: Fever >100.4 F Aspirin (Ecotrin) 81 mg PO DAILY [facility] Last Admin: 11/06/17 09:27 Dose: 81 mg Diltiazem HCl (Cardizem) 30 mg PO QID [facility] Last Admin: 11/06/17 22:24 Dose: 30 mg Hydromorphone HCl (Dilaudid) 0.5 mg IVP Q6H PRN PRN Reason: Pain, moderate (4-7) Last Admin: 11/05/17 20:28 Dose: 0.5 mg Heparin Sodium/Sodium Chloride (Heparin 61355 Units/250ml 1/2 Normal Saline) 25 ,000 units in 250 mls @ 17.57 mls/hr IV .[id number] PRN; Protocol; 18 UNITS/KG/HR PRN Reason: ADJUST RATE PER PROTOCOL Last Admin: 11/03/17 16:44 Dose: 12 units/kg/hr, 11.714 mls/hr Meropenem (Merrem Iv 1 Gm Premix) 50 mls @ 100 mls/hr IVPB Q8 [facility] PRN Reason: Protocol Stop: 11/10/17 14:01 Last Admin: 11/07/17 05:19 Dose: 100 mls/hr Lactated Ringer's (Lactated Ringer's) 1,000 mls @ 75 mls/hr IV .[id number] [facility] Last Admin: 11/07/17 05:20 Dose: 75 mls/hr Insulin Human Regular (Humulin R Low) 0 units SC ACHS [facility] PRN Reason: Protocol Last Admin: 11/06/17 22:38 Dose: Not Given Levalbuterol HCl (Xopenex) 0.63 mg IH TIDRESP [facility] Last Admin: 11/06/17 20:11 Dose: 0.63 mg Methylprednisolone (Medrol) 8 mg PO TID [facility] PRN Reason: Taper Stop: 11/12/17 10:44 Metoprolol Tartrate (Lopressor) 25 mg PO BID [facility] Last Admin: 11/06/17 18:09 Dose: 25 mg Metoprolol Tartrate (Lopressor) 5 mg IVP Q6H PRN PRN Reason: SBP>180 or HR>120 Ondansetron HCl (Zofran Inj) 4 mg IVP Q6H PRN PRN Reason: Nausea/Vomiting Oxycodone/Acetaminophen (Percocet 5/325 Mg Tab) 1 tab PO Q4H PRN PRN Reason: Pain, Mild (1-3) Stop: 11/08/17 19:26 Last Admin: 11/05/17 21:30 Dose: 1 tab Pantoprazole Sodium (Protonix Ec Tab) 40 mg PO 0600 [facility] Last Admin: 11/07/17 05:20 Dose: 40 mg - Labs Labs: 11/06/17 06:00 11/06/17 06:00 PT 11.3 SECONDS (9.4-12.5) 11/05/17 06:30 INR 0.98 (0.93-1.08) 11/05/17 06:30 APTT 65.8 Seconds (25.1-36.5) H 11/03/17 05:48 - Constitutional Appears: Non-toxic, Chronically Ill - Head Exam Head Exam: NORMAL INSPECTION - ENT Exam ENT Exam: Mucous Membranes Moist - Neck Exam Neck Exam: absent: Meningismus - Respiratory Exam Respiratory Exam: Decreased Breath Sounds - Cardiovascular Exam Cardiovascular Exam: +S1, +S2 - GI/Abdominal Exam GI & Abdominal Exam: Soft. absent: Tenderness Assessment and Plan - Assessment and Plan (Free Text) Plan: Assessment severe sepsis due to acute cholangitis S/P ERCP, sphincterotomy, stone extraction and placement of stent POD #3 obesity with BMI 31 Plan Continue Merrem and monitor clinically - patient still on a liquid diet discussed with Dr. De La Torre
[2017-11-07] MEDS: Heparin25000 units/250ml 1/2NS 25,000 UNITS/250 ML BAG IV PRN (13:05)
--- NOTE | 2017-11-07 16:03 | CP.PCM.PN ---
<Raiza Purdy - Last Filed: 11/07/17 15:54> Subjective - Date & Time of Evaluation Date of Evaluation: 11/07/17 Time of Evaluation: 07:30 - Subjective Subjective: Raiza Purdy DO PGY1 - Internal Medicine Progress Note Patient seen and examined at bedside. Nurse reports no acute events overnight. She is s/p cholecystectomy POD2. She feels well today, and denies any abdominal pain or fever. She denies any SOB, CP, nausea, vomiting, diarrhea, constipation , chills. Objective - Vital Signs/Intake and Output Vital Signs (last 24 hours): Temp Pulse Resp BP Pulse Ox 98.0 F 79 19 154/78 H 93 L 11/07/17 06:00 11/07/17 15:10 11/07/17 15:10 11/07/17 14:36 11/07/17 15:10 Intake and Output: 11/07/17 11/07/17 06:59 18:59 Intake Total 1140 Output Total 2270 Balance -1130 - Medications Medications: Current Medications Acetaminophen (Tylenol 325mg Tab) 650 mg PO Q4 PRN PRN Reason: Fever >100.4 F Aspirin (Ecotrin) 81 mg PO DAILY [facility] Last Admin: 11/07/17 09:08 Dose: 81 mg Diltiazem HCl (Cardizem) 30 mg PO QID [facility] Last Admin: 11/07/17 14:36 Dose: 30 mg Hydromorphone HCl (Dilaudid) 0.5 mg IVP Q6H PRN PRN Reason: Pain, moderate (4-7) Last Admin: 11/05/17 20:28 Dose: 0.5 mg Heparin Sodium/Sodium Chloride (Heparin 68757 Units/250ml 1/2 Normal Saline) 25 ,000 units in 250 mls @ 17.57 mls/hr IV .[id number] PRN; Protocol; 18 UNITS/KG/HR PRN Reason: ADJUST RATE PER PROTOCOL Last Admin: 11/07/17 13:05 Dose: 12 units/kg/hr, 11.714 mls/hr Meropenem (Merrem Iv 1 Gm Premix) 50 mls @ 100 mls/hr IVPB Q8 [facility] PRN Reason: Protocol Stop: 11/10/17 14:01 Last Admin: 11/07/17 14:36 Dose: 100 mls/hr Insulin Human Regular (Humulin R Low) 0 units SC ACHS [facility] PRN Reason: Protocol Last Admin: 11/07/17 09:02 Dose: Not Given Levalbuterol HCl (Xopenex) 0.63 mg IH TIDRESP [facility] Last Admin: 11/07/17 13:16 Dose: 0.63 mg Methylprednisolone (Medrol) 4 mg PO 5XD [facility] PRN Reason: Taper Stop: 11/12/17 10:44 Last Admin: 11/07/17 14:36 Dose: 4 mg Metoprolol Tartrate (Lopressor) 5 mg IVP Q6H PRN PRN Reason: SBP>180 or HR>120 Last Admin: 11/07/17 10:32 Dose: 5 mg Metoprolol Tartrate (Lopressor) 50 mg PO BID [facility] Last Admin: 11/07/17 10:02 Dose: Not Given Ondansetron HCl (Zofran Inj) 4 mg IVP Q6H PRN PRN Reason: Nausea/Vomiting Oxycodone/Acetaminophen (Percocet 5/325 Mg Tab) 1 tab PO Q4H PRN PRN Reason: Pain, Mild (1-3) Stop: 11/08/17 19:26 Last Admin: 11/05/17 21:30 Dose: 1 tab Pantoprazole Sodium (Protonix Ec Tab) 40 mg PO 0600 [facility] Last Admin: 11/07/17 05:20 Dose: 40 mg - Labs Labs: 11/07/17 05:40 11/07/17 05:40 PT 11.3 SECONDS (9.4-12.5) 11/05/17 06:30 INR 0.98 (0.93-1.08) 11/05/17 06:30 APTT 25.7 Seconds (25.1-36.5) 11/07/17 10:50 - Constitutional Appears: Non-toxic, No Acute Distress - Head Exam Head Exam: ATRAUMATIC, NORMOCEPHALIC - Eye Exam Eye Exam: EOMI, Normal appearance, PERRL - ENT Exam ENT Exam: Mucous Membranes Moist - Respiratory Exam Respiratory Exam: Clear to Ausculation Bilateral, NORMAL BREATHING PATTERN - Cardiovascular Exam Cardiovascular Exam: Tachycardia, Irregular Rhythm, +S1, +S2 - GI/Abdominal Exam GI & Abdominal Exam: Soft, Normal Bowel Sounds. absent: Tenderness Additional comments: Laparoscopy wounds appear CDI. Sean drain in place, with dark serosanguinous fluid, approximately 20-30 cc's - Extremities Exam Extremities Exam: Pedal Edema (trace). absent: Calf Tenderness - Neurological Exam Neurological Exam: Alert, Awake, Oriented x3 - Psychiatric Exam Psychiatric exam: Normal Affect, Normal Mood - Skin Skin Exam: Dry, Intact, Normal Color Assessment and Plan - Assessment and Plan (Free Text) Assessment: 77yo [place] female with no PMHx presented with daughter to [facility] ED on 10/31 for AMS and abdominal pain; also with new onset atrial fibrillation and now s/p ERCP for cholangitis and repeat ERCP with sphincterotomy and sweep; now s/p cholecystectomy POD2; afib still with uncontrolled rate Plan: Altered Mental Status -resolved -likely secondary to fever, now resolved Cholangitis, choledocolithiasis, cholelithiasis -Patient initially presented in septic shock secondary to acute cholangitis, now resolved -s/p ERCP with stent placement; repeat ERCP with sphincterotomy and sweep done -Patient is s/p cholecystectomy POD 2 -PRN Tylenol for fever -Merrem 1gm ivpb q8 Day 7 -Zofran for nausea -GI: Dr Petersen consulted -GI: Dr Garcia consulted -ID: Dr Holden consulted -GS: Dr Ferreira consulted Aflutter -Rate currently uncontrolled -Continue PO cardizem; continue PRN IV metoprolol -PO metroprolol increased to 50 PO BID; discussed with cardio -ASA 81mg po qd -Chadsvasc 3, Hasbled 1 -Resume heparin drip per discussion with surgery and cardio; will start oral anticoagulation prior to discharge -Cardio: Dr. 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 Continue PT with goal of independant ambulation prior to discharge Discussed with Dr. De La Torre <Fahad De La Torre - Last Filed: 11/07/17 18:06> Objective - Vital Signs/Intake and Output Vital Signs (last 24 hours): Temp Pulse Resp BP Pulse Ox 98.0 F 77 19 145/74 93 L 11/07/17 06:00 11/07/17 17:43 11/07/17 15:10 11/07/17 17:42 11/07/17 15:10 Intake and Output: 11/07/17 11/07/17 06:59 18:59 Intake Total 1140 150 Output Total 2270 1280 Balance -1130 -1130 - Medications Medications: Current Medications Acetaminophen (Tylenol 325mg Tab) 650 mg PO Q4 PRN PRN Reason: Fever >100.4 F Aspirin (Ecotrin) 81 mg PO DAILY [facility] Last Admin: 11/07/17 09:08 Dose: 81 mg Diltiazem HCl (Cardizem) 30 mg PO QID [facility] Last Admin: 11/07/17 17:43 Dose: 30 mg Hydromorphone HCl (Dilaudid) 0.5 mg IVP Q6H PRN PRN Reason: Pain, moderate (4-7) Last Admin: 11/05/17 20:28 Dose: 0.5 mg Heparin Sodium/Sodium Chloride (Heparin 84810 Units/250ml 1/2 Normal Saline) 25 ,000 units in 250 mls @ 17.57 mls/hr IV .[id number] PRN; Protocol; 18 UNITS/KG/HR PRN Reason: ADJUST RATE PER PROTOCOL Last Admin: 11/07/17 13:05 Dose: 12 units/kg/hr, 11.714 mls/hr Meropenem (Merrem Iv 1 Gm Premix) 50 mls @ 100 mls/hr IVPB Q8 [facility] PRN Reason: Protocol Stop: 11/10/17 14:01 Last Admin: 11/07/17 14:36 Dose: 100 mls/hr Insulin Human Regular (Humulin R Low) 0 units SC ACHS [facility] PRN Reason: Protocol Last Admin: 11/07/17 17:43 Dose: 4 units Levalbuterol HCl (Xopenex) 0.63 mg IH TIDRESP [facility] Last Admin: 11/07/17 13:16 Dose: 0.63 mg Methylprednisolone (Medrol) 4 mg PO 5XD [facility] PRN Reason: Taper Stop: 11/12/17 10:44 Last Admin: 11/07/17 17:43 Dose: 4 mg Metoprolol Tartrate (Lopressor) 5 mg IVP Q6H PRN PRN Reason: SBP>180 or HR>120 Last Admin: 11/07/17 10:32 Dose: 5 mg Metoprolol Tartrate (Lopressor) 50 mg PO BID [facility] Last Admin: 11/07/17 17:42 Dose: 50 mg Ondansetron HCl (Zofran Inj) 4 mg IVP Q6H PRN PRN Reason: Nausea/Vomiting Oxycodone/Acetaminophen (Percocet 5/325 Mg Tab) 1 tab PO Q4H PRN PRN Reason: Pain, Mild (1-3) Stop: 11/08/17 19:26 Last Admin: 11/05/17 21:30 Dose: 1 tab Pantoprazole Sodium (Protonix Ec Tab) 40 mg PO 0600 [facility] Last Admin: 11/07/17 05:20 Dose: 40 mg - Labs Labs: 11/07/17 05:40 11/07/17 05:40 PT 11.3 SECONDS (9.4-12.5) 11/05/17 06:30 INR 0.98 (0.93-1.08) 11/05/17 06:30 APTT 25.7 Seconds (25.1-36.5) 11/07/17 10:50 Attending/Attestation - Attestation I have personally seen and examined this patient.: Yes I have fully participated in the care of the patient.: Yes I have reviewed all pertinent clinical information, including history, physical exam and plan: Yes Notes (Text): I have seen and examined the patient at bedside. Agree with the above note with the following additions/ exceptions: Briefly this is 77 year old [place] female who was admitted for evaluation of AMS and abdominal pain. She was found to have severe sepsis due to ascending cholangitis, s/p ERCP stent, removal of the stone, laparoscopic cholecystectomy. She still has drain in place. Tolerating full liquid diet. Discussed with surgery. Patient's diet can be advanced. She also has atrial fib. Rtae has been 110-140. BP is also high. Will increase her metoprolol. Restart heparin today. Patient will be transferred to remote telemetry. Education provided regarding need for intermediate anticoagulation. Upon discharge patient will follow up with [facility] clinic. Dr Fahad De La Torre
[2017-11-08] MEDS: Insulin Reg-LOW-Coverage SC SCH ×3 (00:01→13:58)
[2017-11-08] MEDS: Pantoprazole 40 mg EC Tab PO SCH (05:19)
[2017-11-08] MEDS: Meropenem IV 1 gm in NS 50 ML IVPB SCH ×2 (05:20→13:56)
[2017-11-08 06:00] LABS: GRAN # 4.69 (1.4-6.5); GRAN % 75.7 % (50.0-68.0); HEMOGLOBIN 12.8 g/dL (12.0-16.0); LYMPH # 1.2 (1.2-3.4); LYMPH % 18.5 % (22.0-35.0); MEAN CELL VOLUME 89.7 fl (80.0-105.0); MEAN CORPUSCULAR HEMOGLOBIN 29.4 pg (25.0-35.0); MEAN CORPUSCULAR HGB CONC 32.7 g/dl (31.0-37.0); MEAN PLATELET VOLUME 10.4 fl (7.0-11.0); MONO # 0.4 (0.1-0.6); MONO % 5.8 % (1.0-6.0); RBC 4.36 10^6/uL (3.5-6.1); RED CELL DISTRIBUTION WIDTH 14.3 % (11.5-14.5); WHITE BLOOD COUNT 6.2 10^3/ul (4.5-11.0)
[2017-11-08 06:15] LABS: ALB/GLOB RATIO 0.9 (1.1-1.8); ALT/SGPT 94 U/L (7-56); AST/SGOT 46 U/L (14-36); BLOOD UREA NITROGEN 16 mg/dL (7-21); CALCIUM 9.1 mg/dL (8.4-10.5); GFR AFRICAN-AMERICAN > 60; GFR NON-AFRICAN AMERICAN > 60
--- NOTE | 2017-11-08 07:28 | CP.PCM.PN ---
<Carmen Elam - Last Filed: 11/08/17 07:25> Subjective - Date & Time of Evaluation Date of Evaluation: 11/08/17 Time of Evaluation: 07:25 - Subjective Subjective: Surgery: Dr. Saleh Pt seen and examined. No acute events overnight. Pt is feeling well and states pain is well controlled. Tolerating regular diet and out of bed. Denies N/V, F/ C. Objective - Vital Signs/Intake and Output Vital Signs (last 24 hours): Temp Pulse Resp BP Pulse Ox 98 F 75 14 142/68 96 11/08/17 06:00 11/08/17 06:20 11/08/17 06:20 11/08/17 06:00 11/08/17 06:20 Intake and Output: 11/08/17 11/08/17 06:59 18:59 Intake Total 500 Output Total 1360 Balance -860 - Medications Medications: Current Medications Acetaminophen (Tylenol 325mg Tab) 650 mg PO Q4 PRN PRN Reason: Fever >100.4 F Aspirin (Ecotrin) 81 mg PO DAILY [facility] Last Admin: 11/07/17 09:08 Dose: 81 mg Diltiazem HCl (Cardizem) 30 mg PO QID [facility] Last Admin: 11/07/17 21:30 Dose: 30 mg Hydromorphone HCl (Dilaudid) 0.5 mg IVP Q6H PRN PRN Reason: Pain, moderate (4-7) Last Admin: 11/05/17 20:28 Dose: 0.5 mg Heparin Sodium/Sodium Chloride (Heparin 27005 Units/250ml 1/2 Normal Saline) 25 ,000 units in 250 mls @ 17.57 mls/hr IV .[id number] PRN; Protocol; 18 UNITS/KG/HR PRN Reason: ADJUST RATE PER PROTOCOL Last Titration: 11/08/17 02:45 Dose: 10 units/kg/hr, 9.761 mls/hr Meropenem (Merrem Iv 1 Gm Premix) 50 mls @ 100 mls/hr IVPB Q8 CHARI PRN Reason: Protocol Stop: 11/10/17 14:01 Last Admin: 11/08/17 05:20 Dose: 100 mls/hr Insulin Human Regular (Humulin R Low) 0 units SC ACHS [facility] PRN Reason: Protocol Last Admin: 11/08/17 00:01 Dose: Not Given Levalbuterol HCl (Xopenex) 0.63 mg IH TIDRESP [facility] Last Admin: 11/07/17 21:30 Dose: 0.63 mg Methylprednisolone (Medrol) 4 mg PO 5XD [facility] PRN Reason: Taper Stop: 11/12/17 10:44 Last Admin: 11/08/17 05:19 Dose: 4 mg Metoprolol Tartrate (Lopressor) 5 mg IVP Q6H PRN PRN Reason: SBP>180 or HR>120 Last Admin: 11/07/17 10:32 Dose: 5 mg Metoprolol Tartrate (Lopressor) 50 mg PO BID [facility] Last Admin: 11/07/17 17:42 Dose: 50 mg Ondansetron HCl (Zofran Inj) 4 mg IVP Q6H PRN PRN Reason: Nausea/Vomiting Oxycodone/Acetaminophen (Percocet 5/325 Mg Tab) 1 tab PO Q4H PRN PRN Reason: Pain, Mild (1-3) Stop: 11/08/17 19:26 Last Admin: 11/05/17 21:30 Dose: 1 tab Pantoprazole Sodium (Protonix Ec Tab) 40 mg PO 0600 [facility] Last Admin: 11/08/17 05:19 Dose: 40 mg - Labs Labs: 11/08/17 05:30 11/08/17 05:30 PT 11.3 SECONDS (9.4-12.5) 11/05/17 06:30 INR 0.98 (0.93-1.08) 11/05/17 06:30 APTT 80.9 Seconds (25.1-36.5) H 11/08/17 01:55 - Constitutional Appears: Well, No Acute Distress - Head Exam Head Exam: ATRAUMATIC, NORMOCEPHALIC - ENT Exam ENT Exam: Mucous Membranes Moist - Respiratory Exam Respiratory Exam: NORMAL BREATHING PATTERN - Cardiovascular Exam Cardiovascular Exam: RRR - GI/Abdominal Exam GI & Abdominal Exam: Soft. absent: Distended, Guarding, Tenderness Additional comments: Sean drain with serosang fluid - Neurological Exam Neurological Exam: Alert, Awake, Oriented x3 - Skin Skin Exam: Dry, Warm Assessment and Plan - Assessment and Plan (Free Text) Assessment: 77F s/p lap elda; POD#3 Plan: - pt clear for DC from surgical standpoint - f/u with Dr. Saleh in 1 week for drain removal - Ok to shower - d/w Dr. Therese Elam, PGY-3 Surgery <Nathen Saleh - Last Filed: 11/08/17 21:06> Objective - Vital Signs/Intake and Output Vital Signs (last 24 hours): Temp Pulse Resp BP Pulse Ox 97.9 F 85 27 H 132/64 92 L 11/08/17 12:00 11/08/17 14:20 11/08/17 14:20 11/08/17 13:00 11/08/17 14:20 Intake and Output: 11/08/17 11/09/17 18:59 06:59 Intake Total 120 Balance 120 - Labs Labs: 11/08/17 05:30 11/08/17 05:30 PT 11.3 SECONDS (9.4-12.5) 11/05/17 06:30 INR 0.98 (0.93-1.08) 11/05/17 06:30 APTT 58.5 Seconds (25.1-36.5) H 11/08/17 09:20 Attending/Attestation - Attestation I have personally seen and examined this patient.: Yes I have fully participated in the care of the patient.: Yes I have reviewed all pertinent clinical information, including history, physical exam and plan: Yes Notes (Text): Pt was seen and examined at bedside Agree with above note and assessment Pt is improved clinically c/w current mx Drain removal as out pt Plan d.w primary team
--- NOTE | 2017-11-08 07:54 | CP.PCM.PN ---
Subjective - Date & Time of Evaluation Date of Evaluation: 11/08/17 Time of Evaluation: 07:00 - Subjective Subjective: Stable in CCU. S/P GB surgery. Doing well. Tolerating diet. V/S note. A. Flutter, VR 70 - 100 BPM PE: Lungs: few rhonchi Cor.: irreg, S1S2 Abd.: soft Ext.: no edema Neuro.: alert I/O=650/2640 Labs noted: PTT = 81 BC x2 NG at 5 days ECG: A. Flut at 127 BPM, NSSTW chnages Objective - Vital Signs/Intake and Output Vital Signs (last 24 hours): Temp Pulse Resp BP Pulse Ox 98 F 75 14 142/68 96 11/08/17 06:00 11/08/17 06:20 11/08/17 06:20 11/08/17 06:00 11/08/17 06:20 Intake and Output: 11/08/17 11/08/17 06:59 18:59 Intake Total 500 Output Total 1360 Balance -860 - Medications Medications: Current Medications Acetaminophen (Tylenol 325mg Tab) 650 mg PO Q4 PRN PRN Reason: Fever >100.4 F Aspirin (Ecotrin) 81 mg PO DAILY [facility] Last Admin: 11/07/17 09:08 Dose: 81 mg Diltiazem HCl (Cardizem) 30 mg PO QID [facility] Last Admin: 11/07/17 21:30 Dose: 30 mg Hydromorphone HCl (Dilaudid) 0.5 mg IVP Q6H PRN PRN Reason: Pain, moderate (4-7) Last Admin: 11/05/17 20:28 Dose: 0.5 mg Heparin Sodium/Sodium Chloride (Heparin 23945 Units/250ml 1/2 Normal Saline) 25 ,000 units in 250 mls @ 17.57 mls/hr IV .[id number] PRN; Protocol; 18 UNITS/KG/HR PRN Reason: ADJUST RATE PER PROTOCOL Last Titration: 11/08/17 02:45 Dose: 10 units/kg/hr, 9.761 mls/hr Meropenem (Merrem Iv 1 Gm Premix) 50 mls @ 100 mls/hr IVPB Q8 CHARI PRN Reason: Protocol Stop: 11/10/17 14:01 Last Admin: 11/08/17 05:20 Dose: 100 mls/hr Insulin Human Regular (Humulin R Low) 0 units SC ACHS [facility] PRN Reason: Protocol Last Admin: 11/08/17 00:01 Dose: Not Given Levalbuterol HCl (Xopenex) 0.63 mg IH TIDRESP [facility] Last Admin: 11/07/17 21:30 Dose: 0.63 mg Methylprednisolone (Medrol) 4 mg PO 5XD [facility] PRN Reason: Taper Stop: 11/12/17 10:44 Last Admin: 11/08/17 05:19 Dose: 4 mg Metoprolol Tartrate (Lopressor) 5 mg IVP Q6H PRN PRN Reason: SBP>180 or HR>120 Last Admin: 11/07/17 10:32 Dose: 5 mg Metoprolol Tartrate (Lopressor) 50 mg PO BID [facility] Last Admin: 11/07/17 17:42 Dose: 50 mg Ondansetron HCl (Zofran Inj) 4 mg IVP Q6H PRN PRN Reason: Nausea/Vomiting Oxycodone/Acetaminophen (Percocet 5/325 Mg Tab) 1 tab PO Q4H PRN PRN Reason: Pain, Mild (1-3) Stop: 11/08/17 19:26 Last Admin: 11/05/17 21:30 Dose: 1 tab Pantoprazole Sodium (Protonix Ec Tab) 40 mg PO 0600 [facility] Last Admin: 11/08/17 05:19 Dose: 40 mg - Labs Labs: 11/08/17 05:30 11/08/17 05:30 PT 11.3 SECONDS (9.4-12.5) 11/05/17 06:30 INR 0.98 (0.93-1.08) 11/05/17 06:30 APTT 80.9 Seconds (25.1-36.5) H 11/08/17 01:55 Assessment and Plan - Assessment and Plan (Free Text) Assessment: Multiple GI sxs with fever, jaundice AMS Gall Stones/Acute Cholecystitis Sepsis S/P biliary stent S/P Lap. Cholecystectomy Mildly + troponon level/doubt acute KS A. Flutter Plan: Continue heparin. switch to PO A/C when taking PO: Eliquis 5 BID Rate controll with diltiazem and metoprolol for now. Switch Cardizem to CD 120 QD. As per GI and surgery and ID Tel bed soon. OOB to chair as emiliana. Will follow.
[2017-11-08] MEDS: Levalbuterol 0.63 MG/3 ML Inhal Soln UD IH SCH ×2 (08:48→13:47)
[2017-11-08] MEDS ORDERED: diltiaZEM 120 mg/24 Hours CD Cap PO SCH (10:00)
[2017-11-08] MEDS: Heparin25000 units/250ml 1/2NS 25,000 UNITS/250 ML BAG IV PRN (12:22)
[2017-11-08 15:43] VITALS: BP 132/64; PULSE 85; RESP 27; O2SAT 92
[2017-11-08 15:57] VITALS: TEMP 97.9
--- NOTE | 2017-11-08 19:32 | CP.PCM.DIS ---
<Raiza Purdy - Last Filed: 11/08/17 19:27> Provider - Provider Date of Admission: 11/01/17 00:55 Attending physician: Fahad De La Torre MD Primary care physician: NO PRIMARY CARE PROVIDER Consults: KESHA: Calixto ID: Boghossian Cardio: Antonio Surgery: [facility] Time Spent in preparation of Discharge (in minutes): 55 Diagnosis - Discharge Diagnosis (1) Altered mental status Status: Acute (2) Cholecystitis Status: Acute (3) Paroxysmal atrial flutter Status: Acute Hospital Course - Lab Results Lab Results: Micro Results 11/01/17 03:45 Naris MRSA Culture (Admit) - Final MRSA NOT DETECTED Most Recent Lab Values WBC 6.2 10^3/ul (4.5-11.0) 11/08/17 05:30 RBC 4.36 10^6/uL (3.5-6.1) 11/08/17 05:30 Hgb 12.8 g/dL (12.0-16.0) 11/08/17 05:30 Hct 39.1 % (36.0-48.0) 11/08/17 05:30 MCV 89.7 fl (80.0-105.0) 11/08/17 05:30 MCH 29.4 pg (25.0-35.0) 11/08/17 05:30 MCHC 32.7 g/dl (31.0-37.0) 11/08/17 05:30 RDW 14.3 % (11.5-14.5) 11/08/17 05:30 Plt Count 246 10^3/uL (120.0-450.0) 11/08/17 05:30 MPV 10.4 fl (7.0-11.0) 11/08/17 05:30 Gran % 75.7 % (50.0-68.0) H 11/08/17 05:30 Lymph % (Auto) 18.5 % (22.0-35.0) L 11/08/17 05:30 [place] % (Auto) 5.8 % (1.0-6.0) 11/08/17 05:30 Eos % (Auto) 0.0 % (1.5-5.0) L 11/08/17 05:30 Baso % (Auto) 0.0 % (0.0-3.0) 11/08/17 05:30 Gran # 4.69 (1.4-6.5) 11/08/17 05:30 Lymph # 1.2 (1.2-3.4) 11/08/17 05:30 [place] # 0.4 (0.1-0.6) 11/08/17 05:30 Eos # 0.0 (0.0-0.7) 11/08/17 05:30 Baso # 0.00 K/mm3 (0.0-2.0) 11/08/17 05:30 PT 11.3 SECONDS (9.4-12.5) 11/05/17 06:30 INR 0.98 (0.93-1.08) 11/05/17 06:30 APTT 58.5 Seconds (25.1-36.5) H 11/08/17 09:20 pO2 144 mm/Hg (30-55) H 11/01/17 05:00 VBG pH 7.39 (7.32-7.43) 11/01/17 05:00 VBG pCO2 39.0 (40-60) L 11/01/17 05:00 VBG HCO3 23.6 mmol/l (21-28) 11/01/17 05:00 VBG Total CO2 24.8 mmol.L (22-28) 11/01/17 05:00 VBG O2 Sat (Calc) 100.0 % (40-65) H 11/01/17 05:00 VBG Base Excess -1.2 mmol/L (0.0-2.0) L 11/01/17 05:00 VBG Potassium 3.6 mmol/L (3.6-5.2) 11/01/17 05:00 Sodium 137.0 mmol/L (132-148) 11/01/17 05:00 Chloride 107.0 mmol/L (98-107) 11/01/17 05:00 Glucose 114 mg/dl (65-105) H 11/01/17 05:00 Lactate 0.9 mmol/L (0.7-2.1) 11/01/17 05:00 FiO2 21.0 % 11/01/17 05:00 Sodium 136 mmol/L (132-148) 11/08/17 05:30 Potassium 4.5 mmol/L (3.6-5.0) 11/08/17 05:30 Chloride 95 mmol/L (98-107) L 11/08/17 05:30 Carbon Dioxide 36 mmol/L (21-33) H 11/08/17 05:30 Anion Gap 9 (10-20) L 11/08/17 05:30 BUN 16 mg/dL (7-21) 11/08/17 05:30 Creatinine 0.6 mg/dl (0.7-1.2) L 11/08/17 05:30 Est GFR ( Amer) > 60 11/08/17 05:30 Est GFR (Non-Af Amer) > 60 11/08/17 05:30 POC Glucose (mg/dL) 157 mg/dL (65-110) H 11/08/17 11:07 Random Glucose 175 mg/dL (70-110) H 11/08/17 05:30 Hemoglobin A1c 7.2 % (4.2-6.5) H 11/01/17 05:00 Calcium 9.1 mg/dL (8.4-10.5) 11/08/17 05:30 Phosphorus 2.8 mg/dL (2.5-4.5) 11/08/17 05:30 Magnesium 2.0 mg/dL (1.7-2.2) 11/08/17 05:30 Total Bilirubin 0.9 mg/dL (0.2-1.3) 11/08/17 05:30 Direct Bilirubin 4.5 mg/dL (0.0-0.4) H 11/01/17 05:00 AST 46 U/L (14-36) H D 11/08/17 05:30 ALT 94 U/L (7-56) H 11/08/17 05:30 Alkaline Phosphatase 142 U/L (38-126) H 11/08/17 05:30 Lactate Dehydrogenase 410 U/L (333-699) 11/01/17 05:00 Total Creatine Kinase 276 U/L (35-230) H 11/01/17 05:00 CK-MB (CK-2) 1.9 ng/mL (0.0-3.6) 11/01/17 05:00 CK-MB (CK-2) % Cancelled 11/01/17 02:10 Troponin I 0.08 ng/mL D 11/02/17 04:30 Total Protein 6.3 g/dL (5.8-8.3) 11/08/17 05:30 Albumin 3.0 g/dL (3.0-4.8) 11/08/17 05:30 Globulin 3.3 gm/dL 11/08/17 05:30 Albumin/Globulin Ratio 0.9 (1.1-1.8) L 11/08/17 05:30 Triglycerides 58 mg/dL (35-160) 11/01/17 05:00 Cholesterol 138 mg/dL (130-200) 11/01/17 05:00 LDL Cholesterol Direct 63 mg/dL (0-129) 11/01/17 05:00 HDL Cholesterol 39 mg/dL (29-60) 11/01/17 05:00 Lipase 98 U/L (23-300) 11/01/17 00:29 Procalcitonin 0.90 NG/ML (0.19-0.49) H 11/01/17 03:10 TSH 3rd Generation 0.75 mIU/mL (0.46-4.68) 11/01/17 05:00 Venous Blood Potassium 3.6 mmol/L (3.6-5.2) 11/01/17 05:00 Urine Color Yellow (YELLOW) 10/31/17 21:45 Urine Appearance Sl cloudy (CLEAR) 10/31/17 21:45 Urine pH 7.5 (4.7-8.0) 10/31/17 21:45 Ur Specific [place] 1.020 (1.005-1.035) 10/31/17 21:45 Urine Protein 100 mg/dL (<30 mg/dL) H 10/31/17 21:45 Urine Glucose (UA) Negative mg/dL (NEGATIVE) 10/31/17 21:45 Urine Ketones 40 mg/dL (NEGATIVE) H 10/31/17 21:45 Urine Blood Trace-intact (NEGATIVE) H 10/31/17 21:45 Urine Nitrate Negative (NEGATIVE) 10/31/17 21:45 Urine Bilirubin Large (NEGATIVE) H 10/31/17 21:45 Urine Urobilinogen 1.0 E.U./dL (<1 E.U./dL) H 10/31/17 21:45 Ur Leukocyte Esterase Negative [place]/uL (NEGATIVE) 10/31/17 21:45 Urine RBC 0 - 2 /hpf (0-2) 10/31/17 21:45 Urine WBC Negative /hpf (0-6) 10/31/17 21:45 Digoxin 0.8 ng/mL (0.8-2.0) 11/05/17 06:30 Hepatitis A IgM Ab Negative (NEGATIVE) 11/01/17 05:00 Hep Bs Antigen Negative (NEGATIVE) 11/01/17 05:00 Hep B Core IgM Ab Negative (NEGATIVE) 11/01/17 05:00 Hepatitis C Antibody Negative (NEGATIVE) 11/01/17 05:00 HIV 1&2 Ag/Ab, 4th Gen Nonreactive (Nonreactive) 11/01/17 09:55 - Hospital Course Hospital Course: 77yo [place] female with no PMHx presented with daughter to [facility] ED on 10/31 for AMS and abdominal pain; also noted to have new onset rapid atrial flutter. Patient was initially in septic shock, determined to be secondary to acute cholangitis, taken for urgent ERCP for stent placement. She was also placed on antibiotics, IV fluids, and vasopressors. With the obstruction resolved, she was able to come off the vasopressors, and eventually the IV fluids. She had repeat ERCP with sphincterotomy and sweep, followed by laparascopic cholecystectomy. When she was admitted, she was also placed on a cardizem drip to control her heart rate. This was also eventually titrated off, eventually switching to PO rate control medications. She was also started on a heparin drip , which will be switched to oral anticoagulants prior to discharge. During her hospitalization, she was also diagnosed with diabetes, with a HbA1c of 7.2, which was treated with insulin in the hospital. Today, patient feels well overall. Daughter is at bedside, acting as rfid engineer. Patient is applying for insurance for coverage of all her new medications. She was able to ambulate with physical therapy with the assistance of a walker. Daughter purchased a walker for her, and reports that she will arrange for follow up with a primary care doctor, as well as a surgeon for removal of the Sean drain. Patient was given new prescriptions for all her medications, including completion of the course of antibiotics, and medrol dosepak. All questions were answered to the patient and her daughter's satisfaction, and she was discharged to home. Discharge Exam - Head Exam Head Exam: ATRAUMATIC, NORMOCEPHALIC - Eye Exam Eye Exam: EOMI, Normal appearance, PERRL - ENT Exam ENT Exam: Mucous Membranes Moist - Neck Exam Neck exam: Normal Inspection - Respiratory Exam Respiratory Exam: NORMAL BREATHING PATTERN. absent: Rales, Rhonchi, Wheezes - Cardiovascular Exam Cardiovascular Exam: REGULAR RHYTHM, +S1, +S2. absent: Tachycardia - GI/Abdominal Exam GI & Abdominal Exam: Normal Bowel Sounds. absent: Soft, Tenderness Additional comments: Wound appear CDI Sean drain in place - Extremities Exam Extremities exam: normal inspection - Neurological Exam Neurological exam: Alert, CN II-XII Intact, Oriented x3 - Psychiatric Exam Psychiatric exam: Normal Affect, Normal Mood - Skin Skin Exam: Dry, Intact, Normal Color Discharge Plan - Discharge Medications Prescriptions: Albuterol HFA [Ventolin HFA 90 mcg/actuation (8 g)] 2 puff IH [id number] PRN #1 inhaler PRN Reason: Wheezing Apixaban [Eliquis] 5 mg PO BID #60 tablet Aspirin [Ecotrin] 81 mg PO DAILY #30 tabec Cefpodoxime [Vantin] 200 mg PO BID #16 tab diltiaZEM CD [Cardizem CD] 120 mg PO DAILY #30 cap Methylprednisolone [Medrol Dose Pack (21 tabs)] See Taper PO DAILY #21 mg Metoprolol Tartrate [Lopressor] 50 mg PO BID #60 tab Metronidazole [Flagyl] 500 mg PO Q8 #21 tablet traMADol [Ultram] 50 mg PO Q6 PRN #12 tab PRN Reason: Pain, Severe (8-10) - Follow Up Plan Condition: STABLE Disposition: HOME/ ROUTINE Instructions: Heparin (By injection), Atrial Flutter (DC), Atrial Fibrillation (DC), Cholecystitis (DC), Cholecystitis (GEN), Saqib-Dumont Drain Care (DC), Laparoscopic Cholecystectomy (DC), Altered Mental Status (GEN) Additional Instructions: 1. Continue to take antibiotics Vantin (cefpodoxime) and Flagyl (metronidazole) until course is complete, even if you feel better 2. Continue to take blood thinners; Aspirin daily and Eliquis twice daily 3. For any bleeding problems or falls, reports to the ER immediately 4. Continue to take blood pressure and heart rate control medications; metoprolol 50mg twice daily and diltiazem CD 120mg daily 5. Continue to take the oral steroids (methylprednisolone) for three more days, as prescribed 6. Use the inhaler as needed for shortness of breath or wheezing 7. Follow up with a primary care doctor within 1-2 weeks, or with the [facility] or [facility] clinic 8. Use a rolling walker when walking to avoid falls 9. For any new or worsening concerns, contact PCP immediately or return to ER Referrals: PCP,NO [Primary Care Provider] - <Fahad De La Torre - Last Filed: 11/09/17 13:13> Provider - Provider Date of Admission: 11/01/17 00:55 Attending physician: Fahad De La Torre MD Primary care physician: AFSHAN PRIMARY CARE PROVIDER Hospital Course - Lab Results Lab Results: Micro Results 11/01/17 03:45 Naris MRSA Culture (Admit) - Final MRSA NOT DETECTED Most Recent Lab Values WBC 6.2 10^3/ul (4.5-11.0) 11/08/17 05:30 RBC 4.36 10^6/uL (3.5-6.1) 11/08/17 05:30 Hgb 12.8 g/dL (12.0-16.0) 11/08/17 05:30 Hct 39.1 % (36.0-48.0) 11/08/17 05:30 MCV 89.7 fl (80.0-105.0) 11/08/17 05:30 MCH 29.4 pg (25.0-35.0) 11/08/17 05:30 MCHC 32.7 g/dl (31.0-37.0) 11/08/17 05:30 RDW 14.3 % (11.5-14.5) 11/08/17 05:30 Plt Count 246 10^3/uL (120.0-450.0) 11/08/17 05:30 MPV 10.4 fl (7.0-11.0) 11/08/17 05:30 Gran % 75.7 % (50.0-68.0) H 11/08/17 05:30 Lymph % (Auto) 18.5 % (22.0-35.0) L 11/08/17 05:30 [place] % (Auto) 5.8 % (1.0-6.0) 11/08/17 05:30 Eos % (Auto) 0.0 % (1.5-5.0) L 11/08/17 05:30 Baso % (Auto) 0.0 % (0.0-3.0) 11/08/17 05:30 Gran # 4.69 (1.4-6.5) 11/08/17 05:30 Lymph # 1.2 (1.2-3.4) 11/08/17 05:30 [place] # 0.4 (0.1-0.6) 11/08/17 05:30 Eos # 0.0 (0.0-0.7) 11/08/17 05:30 Baso # 0.00 K/mm3 (0.0-2.0) 11/08/17 05:30 PT 11.3 SECONDS (9.4-12.5) 11/05/17 06:30 INR 0.98 (0.93-1.08) 11/05/17 06:30 APTT 58.5 Seconds (25.1-36.5) H 11/08/17 09:20 pO2 144 mm/Hg (30-55) H 11/01/17 05:00 VBG pH 7.39 (7.32-7.43) 11/01/17 05:00 VBG pCO2 39.0 (40-60) L 11/01/17 05:00 VBG HCO3 23.6 mmol/l (21-28) 11/01/17 05:00 VBG Total CO2 24.8 mmol.L (22-28) 11/01/17 05:00 VBG O2 Sat (Calc) 100.0 % (40-65) H 11/01/17 05:00 VBG Base Excess -1.2 mmol/L (0.0-2.0) L 11/01/17 05:00 VBG Potassium 3.6 mmol/L (3.6-5.2) 11/01/17 05:00 Sodium 137.0 mmol/L (132-148) 11/01/17 05:00 Chloride 107.0 mmol/L (98-107) 11/01/17 05:00 Glucose 114 mg/dl (65-105) H 11/01/17 05:00 Lactate 0.9 mmol/L (0.7-2.1) 11/01/17 05:00 FiO2 21.0 % 11/01/17 05:00 Sodium 136 mmol/L (132-148) 11/08/17 05:30 Potassium 4.5 mmol/L (3.6-5.0) 11/08/17 05:30 Chloride 95 mmol/L (98-107) L 11/08/17 05:30 Carbon Dioxide 36 mmol/L (21-33) H 11/08/17 05:30 Anion Gap 9 (10-20) L 11/08/17 05:30 BUN 16 mg/dL (7-21) 11/08/17 05:30 Creatinine 0.6 mg/dl (0.7-1.2) L 11/08/17 05:30 Est GFR ( Amer) > 60 11/08/17 05:30 Est GFR (Non-Af Amer) > 60 11/08/17 05:30 POC Glucose (mg/dL) 157 mg/dL (65-110) H 11/08/17 11:07 Random Glucose 175 mg/dL (70-110) H 11/08/17 05:30 Hemoglobin A1c 7.2 % (4.2-6.5) H 11/01/17 05:00 Calcium 9.1 mg/dL (8.4-10.5) 11/08/17 05:30 Phosphorus 2.8 mg/dL (2.5-4.5) 11/08/17 05:30 Magnesium 2.0 mg/dL (1.7-2.2) 11/08/17 05:30 Total Bilirubin 0.9 mg/dL (0.2-1.3) 11/08/17 05:30 Direct Bilirubin 4.5 mg/dL (0.0-0.4) H 11/01/17 05:00 AST 46 U/L (14-36) H D 11/08/17 05:30 ALT 94 U/L (7-56) H 11/08/17 05:30 Alkaline Phosphatase 142 U/L (38-126) H 11/08/17 05:30 Lactate Dehydrogenase 410 U/L (333-699) 11/01/17 05:00 Total Creatine Kinase 276 U/L (35-230) H 11/01/17 05:00 CK-MB (CK-2) 1.9 ng/mL (0.0-3.6) 11/01/17 05:00 CK-MB (CK-2) % Cancelled 11/01/17 02:10 Troponin I 0.08 ng/mL D 11/02/17 04:30 Total Protein 6.3 g/dL (5.8-8.3) 11/08/17 05:30 Albumin 3.0 g/dL (3.0-4.8) 11/08/17 05:30 Globulin 3.3 gm/dL 11/08/17 05:30 Albumin/Globulin Ratio 0.9 (1.1-1.8) L 11/08/17 05:30 Triglycerides 58 mg/dL (35-160) 11/01/17 05:00 Cholesterol 138 mg/dL (130-200) 11/01/17 05:00 LDL Cholesterol Direct 63 mg/dL (0-129) 11/01/17 05:00 HDL Cholesterol 39 mg/dL (29-60) 11/01/17 05:00 Lipase 98 U/L (23-300) 11/01/17 00:29 Procalcitonin 0.90 NG/ML (0.19-0.49) H 11/01/17 03:10 TSH 3rd Generation 0.75 mIU/mL (0.46-4.68) 11/01/17 05:00 Venous Blood Potassium 3.6 mmol/L (3.6-5.2) 11/01/17 05:00 Urine Color Yellow (YELLOW) 10/31/17 21:45 Urine Appearance Sl cloudy (CLEAR) 10/31/17 21:45 Urine pH 7.5 (4.7-8.0) 10/31/17 21:45 Ur Specific [place] 1.020 (1.005-1.035) 10/31/17 21:45 Urine Protein 100 mg/dL (<30 mg/dL) H 10/31/17 21:45 Urine Glucose (UA) Negative mg/dL (NEGATIVE) 10/31/17 21:45 Urine Ketones 40 mg/dL (NEGATIVE) H 10/31/17 21:45 Urine Blood Trace-intact (NEGATIVE) H 10/31/17 21:45 Urine Nitrate Negative (NEGATIVE) 10/31/17 21:45 Urine Bilirubin Large (NEGATIVE) H 10/31/17 21:45 Urine Urobilinogen 1.0 E.U./dL (<1 E.U./dL) H 10/31/17 21:45 Ur Leukocyte Esterase Negative [place]/uL (NEGATIVE) 10/31/17 21:45 Urine RBC 0 - 2 /hpf (0-2) 10/31/17 21:45 Urine WBC Negative /hpf (0-6) 10/31/17 21:45 Digoxin 0.8 ng/mL (0.8-2.0) 11/05/17 06:30 Hepatitis A IgM Ab Negative (NEGATIVE) 11/01/17 05:00 Hep Bs Antigen Negative (NEGATIVE) 11/01/17 05:00 Hep B Core IgM Ab Negative (NEGATIVE) 11/01/17 05:00 Hepatitis C Antibody Negative (NEGATIVE) 11/01/17 05:00 HIV 1&2 Ag/Ab, 4th Gen Nonreactive (Nonreactive) 11/01/17 09:55 Attending/Attestation - Attestation I have personally seen and examined this patient.: Yes I have fully participated in the care of the patient.: Yes I have reviewed all pertinent clinical information, including history, physical exam and plan: Yes Notes (Text): I have seen and examined the patient at bedside. Agree with the above note with the following additions/ exceptions: Briefly this is 77 year old [place] female who was admitted for evaluation of AMS and abdominal pain. She was found to have severe sepsis due to ascending cholangitis, s/p ERCP stent, removal of the stone, laparoscopic cholecystectomy. She still has drain in place. Tolerating regular diet. She also has atrial fibwith controlled HR. Continue metoprolol, cardizem CD120 and start eliquis. Education provided regarding need for nursing home anticoagulation. Upon discharge patient will follow up with [facility] clinic and surgery clinic in 5 days. Patients daughter was explained in detail. Dr Fahad De La Torre
--- NOTE | 2017-11-08 22:48 | PN ---
DATE: 11/08/2017 SUBJECTIVE: The patient is seen early this morning in the ICU. PHYSICAL EXAMINATION: VITAL SIGNS: Temperature is 98, blood pressure is 130/60, and respiratory rate is 18. HEENT: Unremarkable. NECK: Supple. LUNGS: Have decreased breath sounds. HEART: Normal S1 and S2. ABDOMEN: Soft. LABORATORY DATA: Reveals a white count of 6.2, hemoglobin of 12, and platelets of 246. Coagulation is noted. BUN of 16, creatinine of 0.6, and procalcitonin is 0.9. Blood cultures are no growth. Urine cultures are no growth. Nares MRSA is not detected. ASSESSMENT AND PLAN: This is a 77-year-old female who was admitted with severe sepsis due to acute cholangitis, status post endoscopic retrograde cholangiopancreatography, sphincterotomy, stone extraction, and placement of the stent, obesity, and body mass index of 31. The patient is on meropenem. Price Holden MD
--- NOTE | 2017-11-09 04:43 | OP ---
PROCEDURE DATE: 11/05/2017 PREOPERATIVE DIAGNOSES: 1. Acute on chronic cholecystitis. 2. Cholangitis, status post endoscopic retrograde cholangiopancreatography with a stent and stent removal, and stone removal. 3. Leukocytosis and abdominal pain. POSTOPERATIVE DIAGNOSES: 1. Acute on chronic cholecystitis. 2. Cholangitis, status post endoscopic retrograde cholangiopancreatography with a stent and stent removal, and stone removal. 3. Leukocytosis and abdominal pain. 4. Perihepatic and pericholecystic inflammatory fluid collection. 5. Extensive post infectious adhesion. PROCEDURES: 1. Laparoscopic cholecystectomy. 2. Laparoscopic drainage of pericholecystic and perihepatic fluid collection, multiple. 3. Laparoscopic extensive lysis of adhesion. SURGEON: Nathen Saleh MD ASSISTANTS: Carmen Elam, PGY-3 resident and Hugh PGY-1 resident. TYPE OF ANESTHESIA: General endotracheal tube anesthesia. ESTIMATED BLOOD LOSS: Around 100 mL. DRAINS: A 19-[place] Sean drain was placed. COMPLICATIONS: None. INTRAOPERATIVE FINDINGS: The patient had acute on chronic cholecystitis with a post infectious adhesion as well as inflammatory fluid collection in perihepatic as well as pericholecystic area, and the patient also had a severe morbid obesity. DESCRIPTION OF PROCEDURE: On intraoperative steps, this 77-year-old female was diagnosed with cholangitis, and the patient is status post ERCP with a stent as well as stone removal, and the patient was consented for laparoscopic cholecystectomy possible open, brought to the OR, placed supine on the operating table. After induction of anesthesia, abdomen was prepped and draped in a usual sterile fashion. The supraumbilical transverse incision was made after incising skin and subcutaneous tissue. The fascia was incised and Pool port was placed, pneumo was created. A 12 mm port was placed in the midline below costal margin and another 5 mm port was placed in midclavicular and anterior axillary line. After that, a grasper and dissector was introduced. The patient had pericholecystic and perihepatic inflammatory fluid collection, first drainage of the collection was done, and there was extensive edema surrounding the gallbladder, and the gallbladder was retracted cranially. The lysis of adhesion was done, and the infundibulum as well as the Calot's [place] was identified. There was duodenal adhesion as well as omentalization to the infundibulum Calot's triangle that was lysed, and after proper enterolysis, the Calot's triangle was exposed, and the anterior leaflet as well as posterior leaflet dissection was done. The cystic duct and cystic artery was identified. The patient had a dilated cystic duct and dissection was done to mobilize the Calot's triangle further, and the cystic artery and the cystic duct was isolated. After appropriate dissection, the cystic duct and common bile duct junction was also identified, and after that, the cystic duct was stapled with a WILY due to the large size, and the cystic artery was clipped at 3 places, and the gallbladder was dissected free from the gallbladder fossa. The patient had hepatomegaly, and G-tube due to the fatty liver. The patient had abnormal bleeding from the gallbladder fossa. Hemostasis was achieved and a 19-[place] Sean drain was placed due to the extensive inflammation, and the drain was secured to the skin. Dry sterile dressing was applied. All the port was taken out under vision. Pneumo was deflated. Umbilical port site was closed in two layers, fascia with 0 Vicryl interrupted sutures, skin with 4-0 Monocryl and dry sterile dressing was applied. The patient tolerated the procedure well. Count of instrument was correct. There was no apparent complication. Nathen Saleh MD MTDGerman
== END 2017-11-08 16:06 | disposition home or self-care (01) | DRG 853 ==
LOC: ED 21:09 → ERH 11-01 00:55 → CCU 11-01 03:10
PROVIDERS: ADMIT Internal Medicine; ATTEND Hospitalist
PROC: 0F9980Z Drainage of Common Bile Duct with Drainage Device, Via Natural or Artificial Opening Endoscopic (ICD-10-PCS; 2017-11-01)
PROC: 0FPB8DZ Removal of Intraluminal Device from Hepatobiliary Duct, Via Natural or Artificial Opening Endoscopic (ICD-10-PCS; 2017-11-04 09:00)
PROC: 0FC98ZZ Extirpation of Matter from Common Bile Duct, Via Natural or Artificial Opening Endoscopic (ICD-10-PCS; 2017-11-04 09:00)
PROC: 0DNU4ZZ Release Omentum, Percutaneous Endoscopic Approach (ICD-10-PCS; 2017-11-05)
PROC: 0FT44ZZ Resection of Gallbladder, Percutaneous Endoscopic Approach (ICD-10-PCS; principal; 2017-11-05 12:30)
DX: A41.9 Sepsis, unspecified organism (principal); R65.21 Severe sepsis with septic shock; K83.0 Cholangitis; E27.8 Other specified disorders of adrenal gland; E66.01 Morbid (severe) obesity due to excess calories; H70.009 Acute mastoiditis without complications, unspecified ear; I48.0 Paroxysmal atrial fibrillation; E86.0 Dehydration; I24.8 Other forms of acute ischemic heart disease; K80.64 Calculus of gallbladder and bile duct with chronic cholecystitis without obstruction; I48.92 Unspecified atrial flutter; D72.819 Decreased white blood cell count, unspecified; E11.9 Type 2 diabetes mellitus without complications; I11.9 Hypertensive heart disease without heart failure; I51.7 Cardiomegaly; I73.00 Raynaud's syndrome without gangrene; J01.90 Acute sinusitis, unspecified; K57.10 Diverticulosis of small intestine without perforation or abscess without bleeding; K76.0 Fatty (change of) liver, not elsewhere classified; N28.1 Cyst of kidney, acquired; N39.41 Urge incontinence; W22.09XA Striking against other stationary object, initial encounter; Z68.31 Body mass index [BMI] 31.0-31.9, adult; R40.2412 Glasgow coma scale score 13-15, at arrival to emergency department